=== PATIENT | male | born 1975 | race Caucasian/White ===

== ENCOUNTER → 2020-04-23 14:45 | Outpatient (BNVA) | payer BC, SELFPAY | PROVIDERS: PCP Pediatrics; Visit Provider Nurse Practitioner Family | DX: I48.0 Paroxysmal atrial fibrillation (principal); K92.1 Melena; F17.200 Nicotine dependence, unspecified, uncomplicated; Z79.01 Long term (current) use of anticoagulants; Z71.6 Tobacco abuse counseling | CPT/HCPCS: 93005 ==

== ENCOUNTER 2020-04-24 15:07 | Outpatient (REF) | payer BC, SELFPAY ==
[2020-04-24 15:51] LABS: Hematocrit 43.8 % (42-52); Hemoglobin 16.1 g/dl (14.0-18.0); Mean Corpuscular HGB Conc 36.8 g/dl (31.0-36.0); Mean Corpuscular Hemoglobin 33.5 pg (27.0-33.0); Mean Corpuscular Volume 91.3 fL (80-98); Mean Platelet Volume 9.7 fL (9.4-12.4); Platelet Count 339 X10*3/uL (160-400); Red Cell Distribution Width 11.6 % (11.0-16.0); White Blood Count 8.3 X10*3/uL (4.8-10.8)
[2020-04-24 16:29] LABS: Anion Gap 13 (12-20); Blood Urea Nitrogen 11 mg/dL (9-16); Calcium 9.9 mg/dL (8.4-10.2); Carbon Dioxide 29 mmol/L (22-29); Chloride 101 mmol/L (96-108); Estimated Glomerular Filt Rate > 60; Glucose Random 122 mg/dL (60-115); Magnesium 1.9 mg/dL (1.6-2.6); Potassium 4.5 mmol/L (3.3-5.1); Sodium 138 mmol/L (135-145)
== END 2020-04-24 15:08 | disposition home or self-care (01) ==
LOC: HO.LAB 15:07
PROVIDERS: PCP Pediatrics; Visit Provider Nurse Practitioner Family
DX: I10 Essential (primary) hypertension (principal)
CPT/HCPCS: 36415; 80048; 83735; 85027

== ENCOUNTER 2020-05-16 12:49 | Outpatient (REF) | payer BC, SELFPAY ==
[2020-05-16 14:12] LABS: MANUAL DIFF FLAG NO
[2020-05-16 14:27] LABS: Basophils Absolute Auto 0.1 X10*3/uL (0.0-0.2); Basophils Percent Auto 0.7 % (0-2); Eosinophils Absolute Auto 0.1 X10*3/uL (0.0-0.4); Eosinophils Percent Auto 0.5 % (0-4); Hematocrit 44.5 % (42-52); Hemoglobin 16.1 g/dl (14.0-18.0); Imm Gran Abs Auto 0.03 X10*3/uL (0.00-0.03); Imm Gran Pct Auto 0.3 % (0.0-0.4); Lymphocytes Absolute Auto 2.3 X10*3/uL (1.2-4.9); Lymphocytes Percent Auto 23.2 % (20-40); Mean Corpuscular HGB Conc 36.2 g/dl (31.0-36.0); Mean Corpuscular Hemoglobin 32.4 pg (27.0-33.0); Mean Corpuscular Volume 89.5 fL (80-98); Mean Platelet Volume 9.5 fL (9.4-12.4); Monocytes Absolute Auto 0.8 X10*3/uL (0.1-1.2); Monocytes Percent Auto 8.3 % (2-11); Neutrophils Absolute Auto 6.7 X10*3/uL (2.0-8.3); Platelet Count 448 X10*3/uL (160-400); Red Blood Count 4.97 X10*6/uL (4.60-5.80); Red Cell Distribution Width 11.6 % (11.0-16.0)
[2020-05-16 18:18] LABS: Alanine Aminotransferase 162 U/L (0-40); Albumin Level 4.7 g/dL (3.5-5.0); Alkaline Phosphatase 102 U/L (39-117); Aspartate Amino Transferase 177 U/L (5-37); Bilirubin Direct 0.5 mg/dL (0.0-0.5); Bilirubin Total 1.1 mg/dL (0.0-1.0); Blood Urea Nitrogen 8 mg/dL (9-16); C Reactive Protein 1.36 mg/dL (< or = 0.50); Estimated Glomerular Filt Rate > 60; Total Protein 7.6 g/dL (6.5-8.0)
[2020-05-16 18:23] LABS: Ferritin 1229 ng/mL (20-250)
[2020-05-20 22:37] LABS: Transglutaminase IgA 1 U/mL
== END 2020-05-16 12:50 | disposition home or self-care (01) ==
LOC: HO.LAB 12:49
PROVIDERS: PCP Pediatrics; Visit Provider Nurse Practitioner
DX: R10.32 Left lower quadrant pain (principal); Z79.01 Long term (current) use of anticoagulants; K92.1 Melena; R19.7 Diarrhea, unspecified; R11.10 Vomiting, unspecified; I48.0 Paroxysmal atrial fibrillation; F10.10 Alcohol abuse, uncomplicated; F19.90 Other psychoactive substance use, unspecified, uncomplicated; R49.0 Dysphonia; J02.9 Acute pharyngitis, unspecified
CPT/HCPCS: 36415; 80076; 82565; 82728; 83516; 84520; 85025; 86140

== ENCOUNTER 2020-05-24 11:05 | Outpatient (REF) | payer BC, SELFPAY ==
[2020-05-24 14:39] LABS: Blood Urea Nitrogen 9 mg/dL (9-16); Estimated Glomerular Filt Rate > 60
== END 2020-05-24 11:06 | disposition home or self-care (01) ==
LOC: HO.10HDL 11:05
PROVIDERS: Visit Provider Otolaryngology
DX: C76.0 Malignant neoplasm of head, face and neck (principal)
CPT/HCPCS: 36415; 82565; 84520

== ENCOUNTER 2020-06-05 07:38 | Outpatient (REF) | payer BC, SELFPAY ==
--- NOTE | ~2020-06-05 | CT_ITS ---
EXAMINATION: CT SOFT TISSUE NECK WITH CONTRAST CLINICAL INFORMATION: Dystonia. Hoarseness. COMPARISON: No relevant prior imaging. TECHNIQUE: Following the intravenous administration of 100 mL of Omnipaque 350 intravenous contrast, helical imaging was performed in the axial plane with generation of coronal and sagittal reformatted images. This CT examination was performed using dose optimization techniques as appropriate, variously including the following: *Automated exposure control *Adjustment of mA and/or kV according to patient size (this includes techniques or standardized protocols for targeted exams where dose is matched to indication/reason for exam; i.e. extremities or head) *Use of iterative reconstruction technique DLP: 420 mGy-cm FINDINGS: There is a large lobulated right sided laryngeal mass that bulges into the supraglottic airway. Mucosal disease extends along the right aryepiglottic fold with partial involvement of the epiglottis. At the inferior aspect of the mass there is apparent transglottic involvement with eccentric mucosal thickening and enhancement that extends along the right lateral aspect of the subglottic airway below the folds. Soft tissue disease infiltrates the thyroid cartilage and extends beyond the thyrohyoid membrane consistent with extralaryngeal extension of the primary tumor. The the upper pole of the right lobe the thyroid gland is laterally displaced however there is no clear evidence to suggest direct invasion of the thyroid gland on coronal imaging. There are multiple pathologically enlarged heterogeneously enhancing right level II cervical lymph nodes, the largest of which measures 2.5 cm in maximal transaxial dimension best depicted on axial image 41 of 98 series 2. No mediastinal or axillary adenopathy is visualized within the [id number] of this examination. Nasopharyngeal mucosal spaces are symmetric. Parapharyngeal and retromaxillary fat is preserved. Gaming Cage Cashier spaces are normal. The parotid and submandibular glands are normal. Lung apices are clear. The aortic arch apex is normal. Cervical carotid and vertebral arteries are patent. Internal jugular veins fill symmetrically. There is no acute osseous finding. No worrisome lytic or blastic osseous lesion. Skull base is intact. No mastoid or middle ear effusion. Limited visualization of the intracranial anatomy reveals no abnormal finding. 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
[2020-06-05] MEDS: iohexoL 350 MG/ML 100 ML INFUS..BTL IV (08:43)
== END 2020-06-05 07:39 | disposition home or self-care (01) ==
LOC: HO.CT 07:38
PROVIDERS: Visit Provider Otolaryngology
DX: R49.0 Dysphonia (principal)
CPT/HCPCS: 70491; Q9967

== ENCOUNTER 2020-06-07 11:35 | Outpatient (REF) | payer BC, SELFPAY ==
[2020-06-07 13:01] LABS: TSH reflex Free T4 1.69 uIU/mL (0.32-4.0)
[2020-06-08 14:21] LABS: Transglutaminase Ab IgG 3 U/mL; Transglutaminase IgA 1 U/mL
[2020-06-08 23:52] LABS: Gliadin Deamidated IgA Ab 6 Units; Gliadin Deamidated IgG Ab 2 Units
== END 2020-06-07 11:36 | disposition home or self-care (01) ==
LOC: HO.LAB 11:35
PROVIDERS: PCP Pediatrics; Visit Provider Nurse Practitioner
DX: R10.32 Left lower quadrant pain (principal); K92.1 Melena; R19.7 Diarrhea, unspecified; Z79.01 Long term (current) use of anticoagulants
CPT/HCPCS: 36415; 81256; 83516; 84443

== ENCOUNTER 2020-06-12 07:40 | Outpatient (REF) | payer BC, SELFPAY ==
[2020-06-12 08:29] LABS: Anion Gap 17 (12-20); Blood Urea Nitrogen 9 mg/dL (9-16); Calcium 10.2 mg/dL (8.4-10.2); Carbon Dioxide 26 mmol/L (22-29); Chloride 98 mmol/L (96-108); Estimated Glomerular Filt Rate > 60; Glucose Random 126 mg/dL (60-115); Potassium 4.8 mmol/L (3.3-5.1); Sodium 136 mmol/L (135-145)
== END 2020-06-12 07:41 | disposition home or self-care (01) ==
LOC: HO.LAB 07:40
PROVIDERS: PCP Pediatrics; Visit Provider Pediatrics
DX: Z01.818 Encounter for other preprocedural examination (principal)
CPT/HCPCS: 36415; 80048

== ENCOUNTER 2020-07-02 14:04 | Emergency (ER) | payer BC, SELFPAY ==
--- NOTE | 2020-07-02 14:54 | ED.GENADULT ---
HPI - General Adult General Chief complaint: General Medical Stated complaint: TRAK FELL OUT Time Seen by Provider: 07/02/20 14:54 Source: patient Mode of arrival: ambulatory Limitations: no limitations History of Present Illness HPI narrative: Patient with trachestomy for cancer. Today his tracheostomy fell out 30 minutes ago. Onset (ago): minute(s) Severity: mild Related Data Home Medications Medication Instructions Recorded Confirmed flecainide 100 mg tablet 100 mg PO BID 04/23/20 04/23/20 nicotine 7 mg/24 hr daily 1 patch TRANSDERMAL DAILY 04/23/20 04/23/20 transdermal patch penicillin V potassium 500 mg 500 mg PO BID 04/23/20 04/23/20 tablet rivaroxaban 20 mg tablet 20 mg PO DAILY 04/23/20 04/23/20 acetaminophen 500 mg tablet 1,000 mg PO Q6H PRN 05/16/20 dextroamphetamine-amphetamine 15 1 tab PO BID 05/16/20 mg tablet Previous Rx's Medication Instructions Recorded metoprolol succinate 25 mg 25 mg PO DAILY 90 Days #90 tab 05/10/20 tablet,extended release 24 hr hydrocortisone 2.5 % topical cream 1 appl DC BID PRN #30 g 05/16/20 with perineal applicator polyethylene glycol 3350 17 238 g PO ONCE 1 Days #238 g 05/16/20 gram/dose oral powder Allergies Allergy/AdvReac Type Severity Reaction Status Date / Time No Known Allergies Allergy Verified 05/16/20 13:07 [No Known Allergies*] Review of Systems Constitutional: Constitutional: Reports no additional constitutional complaints Eyes: Eyes: Reports no additional eye complaints ENT: Denies dizziness Cardiovascular: Cardiovascular: Reports no additional cardiovascular complaints Respiratory: Respiratory: Reports as per HPI Gastrointestinal: Gastrointestinal: Reports no additional gastrointestinal complaints Musculoskeletal: Musculoskeletal: Reports no additional musculoskeletal complaints Integumentary/Breasts: Skin/Breast: Denies rash Neurologic: Reports system reviewed and no additional complaints, except as documented, Denies dizziness and Denies Sensory deficit (Neuro) Psychiatric: Psychiatric: Denies anxiety [facility] Past Medical History Medical History Chronic anticoagulation PAF (paroxysmal atrial fibrillation) Family History Family History Father HTN (hypertension) Arthritis of knee Mother Arthritis of knee Social History Social History Alcohol intake: unknown Smoking Status: Never smoker Tobacco Type: Cigarette Cigarettes Per Day: 10 Smoked in Last 30 Days: No Use of substances other than those prescribed or required for medical reasons: No Physical Exam Vital Signs: Vital Signs: Last Vital Signs Temp 97.3 F 07/02/20 15:15 Pulse 100 07/02/20 15:15 Resp 18 07/02/20 15:15 BP 125/82 07/02/20 15:15 Pulse Ox 99 07/02/20 15:15 Body Mass Index 26.5 Const: General: healthy appearing Nutritional Appearance: average body habitus Orientation/consciousness: oriented to person and patient oriented x3 Limitations: no limitations HENMT: Head: Yes normal to inspection Ears: external ears normal General nose exam: Normal external nose present Mouth: Normal oral and palatal mucosa present and oropharynx normal Throat: Yes posterior oropharynx normal Eyes: General: appearance normal, both eyes and all related structures Neck: Other: supple, tracheostomy fistula patent Neck: Yes normal visual inspection Chest: Chest palpation & inspection: normal inspection of the chest Resp: Auscultation: clear to auscultation bilaterally Cardio: Jugular venous distension: no JVD Rate: regular rate Rhythm: regular rhythm Heart sounds: S1 normal heart sound present and S2 normal heart sound present GI: Inspection: Yes normal to inspection Palpation (GI): Soft to palpation, nontender and No hepatosplenomegaly present Auscultation: normal bowel sounds : General: Yes no CVA tenderness Back/Spine/Pelvis: Back: no CVA tenderness Skin: General skin exam: no rashes or lesions noted Neuro: General: oriented to person and patient oriented x3 Cranial nerves: Yes CN's II-XII intact bilaterally Motor exam (neuro): 5/5 motor strength present throughout Sensory Exam: No Sensory deficit (Neuro) Extrem: General: Yes normal to inspection Psych: Appearance: grossly normal Procedures Procedure Narrative Procedure Narrative: 6 fR tracheostomy replaced Discharge Plan Discharge Clinical Impression: Tracheostomy care Patient Disposition: Home, Self-Care Instructions: Tracheostomy Care (ED) Prescriptions: No Action metoprolol succinate 25 mg tablet extended release 24 hr 25 mg PO DAILY 90 Days Qty: 90 RF: 1 flecainide 100 mg tablet 100 mg PO BID RF: 0 Xarelto 20 mg tablet 20 mg PO DAILY RF: 0 nicotine 7 mg/24 hr patch 24 hour 1 patch transdermal DAILY RF: 0 penicillin V potassium 500 mg tablet 500 mg PO BID RF: 0 hydrocortisone [Proctosol HC] 2.5 % cream with perineal applicator 1 appl DC BID PRN (Reason: hemorrhoids) Qty: 30 RF: 3 polyethylene glycol 3350 [Miralax] 17 gram/dose powder 238 g PO ONCE 1 Days Qty: 238 RF: 0 Referrals: Annetta Arreaga MD [Primary Care Provider] - 1 week
[2020-07-02 15:15] VITALS: BP 125/82; PULSE 100; RESP 18; TEMP 36.3; O2SAT 99; BMI 26.5
== END 2020-07-02 15:31 | disposition home or self-care (01) ==
LOC: HO.ED 15:30
PROVIDERS: Emergency Provider Emergency Medicine; PCP Pediatrics
DX: Z43.0 Encounter for attention to tracheostomy (principal); I48.0 Paroxysmal atrial fibrillation; Z79.01 Long term (current) use of anticoagulants
CPT/HCPCS: 99284

== ENCOUNTER → 2020-07-10 13:29 | Outpatient (BNVA) | payer BC, SELFPAY | PROVIDERS: PCP Pediatrics; Referring Provider Pediatrics; Visit Provider Internal Medicine Cardiovascular Disease | DX: Z01.810 Encounter for preprocedural cardiovascular examination (principal); I48.92 Unspecified atrial flutter | CPT/HCPCS: 93005 ==

== ENCOUNTER → 2020-08-08 09:20 | Outpatient (REF) | payer BC, SELFPAY ==
--- NOTE | 2020-08-08 12:05 | ECG_ITS ---
Hook-up date: 2020-08-08 09:27:00 Duration: 25:42:00 Test Indications: PAF Medications: 638580 QRS complexes 2205 Ventricular ectopics which represent 2 % of total QRS comp. 393 Supraventricular ectopics which represent <1 % of total QRS comp. * Paced QRS complexs which represent % of total QRS comp. VENTRICULAR ECTOPY 2189 Isolated 1531 Bigeminal Cycles 8 Couplets 0 Runs 0 Beats in Runs * Beats LONGEST at * BPM at :: -- * Beats FASTEST at * BPM at :: -- SUPRAVENTRICULAR ECTOPY 369 Isolated 9 Couplets 2 Runs 6 Beats in Runs 3 Beats LONGEST at 127 BPM at 01:51:10 2020-08-09 3 Beats FASTEST at 137 BPM at 04:10:33 2020-08-09 HEART RATES 36 MIN at 13:34:36 2020-08-08 75 AVG 138 MAX at 07:47:28 2020-08-09 LONGEST RR 1.7520 secs at 13:43:28 2020-08-08 S-T LEVELS Channel 1 - 128 mm at 09:27:00 2020-08-08 - 128 mm at 09:27:00 2020-08-08 Channel 2 - 128 mm at 09:27:00 2020-08-08 - 128 mm at 09:27:00 2020-08-08 Channel 3 - 128 mm at 02:84:61 -- - 128 mm at 02:84:61 Basic rhythm Normal sinus rhythm No significant pauses. Intermittent Atrial fibrillation , 4% of total time Frequent Premature ventricular complexes , 2% of total beats Occasional Premature atrial complexes No diary submitted Referred By: Filemon Salazar Overread By: FILEMON SALAZAR MD
== END ==
LOC: HO.CARD 09:20
PROVIDERS: PCP Pediatrics; Referring Provider Pediatrics; Visit Provider Internal Medicine Cardiovascular Disease
DX: I48.0 Paroxysmal atrial fibrillation (principal)
CPT/HCPCS: 93226

== ENCOUNTER → 2020-10-22 14:48 | Outpatient (BNVA) | payer BC, SELFPAY | PROVIDERS: PCP Pediatrics; Referring Provider Pediatrics; Visit Provider Internal Medicine Cardiovascular Disease | DX: I48.0 Paroxysmal atrial fibrillation (principal) | CPT/HCPCS: 93005 ==

== ENCOUNTER → 2021-01-21 12:46 | Outpatient (BNVA) | payer BC, SELFPAY | PROVIDERS: PCP Pediatrics; Referring Provider Pediatrics; Visit Provider Internal Medicine Cardiovascular Disease | DX: I48.0 Paroxysmal atrial fibrillation (principal) | CPT/HCPCS: 93005 ==

== ENCOUNTER → 2021-07-09 07:19 | Outpatient (REF) | payer BC, SELFPAY ==
--- NOTE | 2021-07-09 07:29 | CA_ITS ---
Transthoracic Echocardiogram Patient (Last, First, Middle): Slick Bingham J Gender: Male Date of : 1975 Age: 46 Procedure Date: 07/09/2021 Procedure Type: Transthoracic Echocardiogram Location: OP Height: 177.8 cm Weight: 111.13 kg BSA: 2.28 m2 Heart Rate: bpm BP: 121 / 82 mmHg Blindstitch Lining Feller: BRIAN Referring MD: Filemon Salazar MD Loading Dock Helper: Filemon Salazar MD Symptoms: I48.0 - Paroxysmal atrial fibrillation Study Quality: Fair ECG Rhythm: Atrial Fibrillation with RVR Conclusions: - 1. Normal LV systolic function 2. Normal cardiac valvular Doppler 3. No gross pericardial effusion Findings Left Ventricle Normal left ventricular size and systolic function. There is mildly increased left ventricular wall thickness. The visually estimated ejection fraction is between 55-60%. Diastolic function is indeterminate on the basis of available data. Right Ventricle Normal right ventricular cavity size. There is normal right ventricular systolic function. Atria The left atrium is normal in size. Interatrial shunt cannot be excluded. The right atrium is normal in size. Aortic Valve Normal aortic valve structure and function. There is no aortic valve stenosis. There is no aortic valve regurgitation. Mitral Valve Likely normal mitral valve structure and function. There is trace mitral valve regurgitation. There is no mitral valve stenosis. Pulmonic Valve The pulmonic valve was not well visualized. Tricuspid Valve Likely normal tricuspid valve structure and function. There is trace tricuspid valve regurgitation. The right ventricular systolic pressure is normal. The right ventricular systolic pressure is 19 mmHg. Normal right atrial pressure. There is no evidence of pulmonary hypertension. Great Vessels All visible segments of the aorta are normal in size. The pulmonary artery was not well visualized. Venous The inferior vena cava is normal in size and collapses greater than 50% with inspiration. Pericardium/Pleural There is no evidence of pericardial effusion. Prior Study Comparison No significant change compared to prior study dated: 07/27/2019. Measurements 2D Linear Measurements IVSd: 1.26 0.6-0.9/0.6-1.0 cm LVIDd: 4.92 3.9-5.3/4.2-5.9 cm LVIDd Index: 2.16 2.4-3.2/2.2-3.1 cm/m2 LVIDs: 3.38 2.0-3.6 cm LVPWd: 1.23 0.7-1.1 cm LA Diam: 3.70 2.7-3.8/3.0-4.0 cm LAIDs Index: 1.62 1.5-2.3 cm/m2 LV Mass: 299.28 67-162/88-224 g LV Mass Index: 131.27 43-95/49-115 g/m2 LVOT Diam: 2.10 3.0+(-)1.3 cm 2D Systolic Function EF 4C: 55.60 >55% EF 2C: 54.80 >55% EF BiP: 55.40 >55% Aortic Valve AoV Pk Franky: 1.11 AoV Mn Franky: 0.80 AoV VTI: 0.18 AoV Pk Grad: 5.00 Aov Mn Grad: 3.00 SHELTON Cont.VTI: 2.65 LVOT LVOT Pk Franky: 0.80 LVOT Mn Franky: 0.58 LVOT VTI: 0.14 LVOT Pk Grad: 3.00 LVOT Mn Grad: 2.00 LVOT Diam: 2.10 LVOT Area: 3.46 Tricuspid Valve TR Pk Franky: 2.00 TR Pk Grad: 16.00 RA Press: 3.00 RVSP: 19.00 Great Vessels Aorta Ao Asc: 3.50 2.1-3.4 cm Updated in Other Vendor System with Status of Final Filemon Salazar MD electronically signed on 07/10/2021 12:41:48 PM with status of Final
--- NOTE | 2021-07-09 08:15 | HM_ITS ---
Conclusion: 1. Patient was monitored for total period of 3 days 2. Baseline was normal sinus rhythm with average heart of 88 beats per minute 3. Intermittent episodes of atrial fibrillation noted with longest episode of 12 hours and 51 minutes, total burden 28.48%. During atrial flutter/fibrillation noted to have elevated heart rate 4. Total of 527 PACs accounting is 0.14% accounting for occasional PACs 5. No significant pauses or bradycardia noted 6. Patient reported event correlated with atrial fibrillation at 145 beats per minute, no symptoms reported MTDD
== END ==
LOC: HO.CARD 07:19
PROVIDERS: Visit Provider Internal Medicine Cardiovascular Disease
DX: I48.0 Paroxysmal atrial fibrillation (principal)
CPT/HCPCS: 93242; 93306

== ENCOUNTER → 2021-07-22 12:15 | Outpatient (BNVA) | payer BC, SELFPAY | PROVIDERS: PCP Pediatrics; Referring Provider Pediatrics; Visit Provider Internal Medicine Cardiovascular Disease | DX: I48.0 Paroxysmal atrial fibrillation (principal) | CPT/HCPCS: 93005 ==

== ENCOUNTER → 2022-02-06 08:54 | Day surgery (SDC) | payer BC, SELFPAY ==
[2022-02-06 09:16] VITALS: BMI 35.9
--- NOTE | 2022-02-06 09:23 | P.HPSUR_ITS ---
Pre-Procedural Eval Section A Date of Service: 02/06/22 Section B Chief Complaint: epigastric pain,Dysphonia Details of Present Illness: rectal bleeding Relevant Family History (Specify if Yes): No Relevant Social History: Other (specify) Present Medications: see Short Stay Collaborative assessment Medical History: Significant History (Atrial flutter Chronic anticoagulation PAF (paroxysmal atrial fibrillation)) History of Previous Operations: Relevant previous surgery/procedure and date(s) (laryngectomy) Allergies: Allergies Allergy/AdvReac Type Severity Reaction Status Date / Time No Known Allergies Allergy Verified 02/06/22 09:15 [No Known Allergies*] Review of Systems Sugical H&P ROS: Negative: Constitution, Cardiovascular, Respiratory, Neurological, Psychiatric, Hem-Onc, Allergic/Immunologic, Gastrointestinal, Gen itourinary, Musculoskeletal, Integumentary, Endocrine and Eyes/Ears/Nose/Throat Exam Surgical H&P Exam: Normal: HEENT, Normal: Heart, Normal: Lungs, Normal: Extremities, Normal: Abdomen, Normal: Skin and Normal: Neurological Plan Diagnosis/Plan: Unchanged I have reviewed the history and physical and performed a pertinent physical examination on my patient. No changes have occurred unless specified. Time Spent With Patient Time: Total time managing care of this patient today ____ minutes.
[2022-02-06 09:29] LABS: Amphetamine Screen Urine POSITIVE (Not Detect); Barbiturates, Urine Not Detected (Not Detect); Benzodiazepines Screen Urine Not Detected (Not Detect); Cannabinoid Screen Urine Not Detected (Not Detect); Cocaine Screen Urine Not Detected (Not Detect); Fentanyl, urine POSITIVE (Not Detect); Opiate Screen Urine Not Detected (Not Detect); Phencyclidine Screen Urine Not Detected (Not Detect)
[2022-02-06 09:34] VITALS: BP 144/103; PULSE 95; RESP 18; TEMP 36.7; O2SAT 99
--- NOTE | 2022-02-06 09:53 | PC.NURSE ---
urine tested positive for fentanyl. procedures cancelled per surgeon and anesthesia. monogram operator for anesthesia also to get more info about his trach.
== END ==
PROVIDERS: Anesthesiology; PCP Pediatrics; Visit Provider Internal Medicine Gastroenterology
DX: R10.13 Epigastric pain (principal); Z53.8 Procedure and treatment not carried out for other reasons; R82.5 Elevated urine levels of drugs, medicaments and biological substances; R49.0 Dysphonia; K92.1 Melena; F10.10 Alcohol abuse, uncomplicated; Z85.21 Personal history of malignant neoplasm of larynx; Z90.02 Acquired absence of larynx; I48.0 Paroxysmal atrial fibrillation; Z79.01 Long term (current) use of anticoagulants
CPT/HCPCS: 80307

== ENCOUNTER 2022-05-20 11:48 | Outpatient (REF) | payer BC, SELFPAY ==
[2022-05-20 13:51] LABS: Amphetamine Screen Urine Not Detected (Not Detect); Barbiturates, Urine Not Detected (Not Detect); Benzodiazepines Screen Urine Not Detected (Not Detect); Cannabinoid Screen Urine Not Detected (Not Detect); Cocaine Screen Urine Not Detected (Not Detect); Fentanyl, urine Not Detected (Not Detect); Opiate Screen Urine Not Detected (Not Detect); Phencyclidine Screen Urine Not Detected (Not Detect)
== END 2022-05-20 11:49 | disposition home or self-care (01) ==
LOC: HO.LAB 11:48
PROVIDERS: PCP Pediatrics; Visit Provider Nurse Practitioner
DX: Z01.818 Encounter for other preprocedural examination (principal); R10.13 Epigastric pain; K92.1 Melena; F10.11 Alcohol abuse, in remission; F19.11 Other psychoactive substance abuse, in remission; Z90.2 Acquired absence of lung [part of]; Z79.899 Other long term (current) drug therapy
CPT/HCPCS: 80307

== ENCOUNTER → 2022-06-26 10:19 | Day surgery (SDC) | payer BC, SELFPAY ==
[2022-06-24 15:34] VITALS: BMI 35.6
--- NOTE | 2022-06-25 12:03 | HO.ANESPROP2 ---
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 afib, no anticoag, [place] [facility] [place] Regular ETOH use Hx +Utox Case reviewed with Dr Kristin QUEZADA Active Problems Active Problems: All Active Problems (Updated 06/24/22 @ 15:36 by Kaylah Marie RN) Blood in stool (Acute) ETOH abuse (Acute) Drug use (Acute) LLQ pain (Acute) Diarrhea (Acute) Vomiting (Acute) Voice hoarseness (Acute) Sore throat (Acute) Preoperative cardiovascular examination (Acute) Dyspepsia (Acute) Pre-op examination (Acute) History of drug abuse (Acute) History of alcohol abuse (Acute) History of throat cancer (Acute) H/O laryngectomy (Acute) PAF (paroxysmal atrial fibrillation) (Acute) Past Medical History Medical History (Updated 06/24/22 @ 15:36 by Kaylah Marie RN) Anxiety Atrial flutter Chronic anticoagulation Depression Dyslipidemia Essential hypertension Gout History of alcohol abuse History of drug abuse History of throat cancer On beta ana at home PAF (paroxysmal atrial fibrillation) Family History Family History Father HTN (hypertension) Arthritis of knee Mother Arthritis of knee Surgical History Surgical History (Updated 05/20/22 @ 15:50 by SHERITA Fields) H/O laryngectomy History of tonsillectomy Hx of arthroscopic knee surgery Social History Social History Alcohol intake: unknown Patient Tobacco Use Status: Former Tobacco user Quit Date: 2 yrs ago Cigarettes Per Day: 10 Meds Allergies Allergy/AdvReac Type Severity Reaction Status Date / Time No Known Allergies Allergy Verified 05/20/22 12:03 [No Known Allergies*] Home Medications Medication Instructions Recorded Confirmed Last Taken Type fluoxetine 20 mg capsule 20 mg PO DAILY 07/10/20 06/24/22 Unknown History allopurinol 100 mg tablet 100 mg PO DAILY 10/22/20 06/24/22 Unknown History amlodipine 2.5 mg tablet 2.5 mg PO DAILY 08/06/21 06/24/22 02/06/22 05:00 History dextroamphetamine-amphetamine 15 1 tab PO BID 10/08/21 06/24/22 02/06/22 05:00 History mg tablet risperidone 2 mg tablet 2 mg PO QPM 10/08/21 06/24/22 Unknown History levothyroxine 50 mcg tablet 50 mcg PO QAM 05/20/22 06/24/22 Unknown History Exam Exam Date and Time: June 25, 2022 1203 Height,Weight and Vital Signs: Height 5 ft 10 in Weight 112.491 kg Narrative Narrative: EKG 07/2021 normal sinus rhythm with normal EKG Assessment and Plan Assessment Anesthesia Assessment: Chart Reviewed
[2022-06-26 11:15] VITALS: PULSE 88; RESP 18; TEMP 36.5
[2022-06-26 11:27] LABS: Amphetamine Screen Urine POSITIVE (Not Detect); Barbiturates, Urine Not Detected (Not Detect); Benzodiazepines Screen Urine Not Detected (Not Detect); Cannabinoid Screen Urine Not Detected (Not Detect); Cocaine Screen Urine Not Detected (Not Detect); Fentanyl, urine Not Detected (Not Detect); Opiate Screen Urine Not Detected (Not Detect); Phencyclidine Screen Urine Not Detected (Not Detect)
[2022-06-26] MEDS: Lactated Ringers 1,000 ML 100 ML IVCONT (11:36)
--- NOTE | 2022-06-26 11:37 | MHC.SHP ---
Pre-Procedural Eval Section A Date of Service: 06/26/22 Section B Chief Complaint: Epigastric pain,Personal history of malignant Relevant Social History: Alcohol Use Present Medications: see Short Stay Collaborative assessment Medical History: Significant History (Anxiety Atrial flutter Chronic anticoagulation Depression Dyslipidemia Essential hypertension Gout History of alcohol abuse History of drug abuse History of throat cancer On beta ana at home PAF (paroxysmal atrial fibrillation)) History of Previous Operations: Relevant previous surgery/procedure and date(s) (H/O laryngectomy History of tonsillectomy Hx of arthroscopic knee surgery) Allergies: Allergies Allergy/AdvReac Type Severity Reaction Status Date / Time No Known Allergies Allergy Verified 05/20/22 12:03 [No Known Allergies*] Review of Systems Sugical H&P ROS: Negative: Constitution, Cardiovascular, Respiratory, Neurological, Psychiatric, Hem-Onc, Allergic/Immunologic, Gastrointestinal, Genitourinary, Musculoskeletal, Integumentary, Endocrine and Eyes/Ears/Nose/Throat Exam Surgical H&P Exam: Normal: Heart, Normal: Lungs, Normal: Extremities, Normal: Abdomen, Normal: Skin and Normal: Neurological and Significant Findings: HEENT (tracheostomy noted ) Plan Diagnosis/Plan: Unchanged I have reviewed the history and physical and performed a pertinent physical examination on my patient. No changes have occurred unless specified. Time Spent With Patient Time: Total time managing care of this patient today ____ minutes.
--- NOTE | 2022-06-26 12:27 | P.CONAN_ITS ---
[facility] Active Problems Active Problems: All Active Problems (Updated 06/24/22 @ 15:36 by Kaylah Marie RN) Blood in stool (Acute) ETOH abuse (Acute) Drug use (Acute) LLQ pain (Acute) Diarrhea (Acute) Vomiting (Acute) Voice hoarseness (Acute) Sore throat (Acute) Preoperative cardiovascular examination (Acute) Dyspepsia (Acute) Pre-op examination (Acute) History of drug abuse (Acute) History of alcohol abuse (Acute) History of throat cancer (Acute) H/O laryngectomy (Acute) PAF (paroxysmal atrial fibrillation) (Acute) Past Medical History Medical History Anxiety Atrial flutter Chronic anticoagulation Depression Dyslipidemia Essential hypertension Gout History of alcohol abuse History of drug abuse History of throat cancer On beta ana at home PAF (paroxysmal atrial fibrillation) Family History Family History Father HTN (hypertension) Arthritis of knee Mother Arthritis of knee Family history of problems with anesthesia: No Surgical History Surgical History H/O laryngectomy History of tonsillectomy Hx of arthroscopic knee surgery History of Problems with Anesthesia: No Social History Social History Alcohol intake: unknown Patient Tobacco Use Status: Former Tobacco user Quit Date: 2 yrs ago Cigarettes Per Day: 10 Use of substances other than those prescribed or required for medical reasons: No Are you DNR?: No Advance Directives: No Advance Directives Information Provided: Yes Meds Allergies Allergy/AdvReac Type Severity Reaction Status Date / Time No Known Allergies Allergy Verified 05/20/22 12:03 [No Known Allergies*] Active Medications: Current Medications Lactated Ringer's (Lr) 1,000 mls @ 100 mls/hr IVCONT .Q10H ESTER Last Admin: 06/26/22 11:36 Dose: 100 mls/hr Ondansetron HCl (Ondansetron Hcl 4 Mg/2 Ml Vial) 4 mg IVPUSH ONCE PRN PRN Reason: Nausea and Vomiting Home Medications Medication Instructions Recorded Confirmed Last Taken Type fluoxetine 20 mg capsule 20 mg PO DAILY 07/10/20 06/24/22 Unknown History allopurinol 100 mg tablet 100 mg PO DAILY 10/22/20 06/26/22 06/26/22 History amlodipine 2.5 mg tablet 2.5 mg PO DAILY 08/06/21 06/24/22 02/06/22 05:00 History dextroamphetamine-amphetamine 15 1 tab PO BID 10/08/21 06/24/22 02/06/22 05:00 History mg tablet risperidone 2 mg tablet 2 mg PO QPM 10/08/21 06/24/22 Unknown History levothyroxine 50 mcg tablet 50 mcg PO QAM 05/20/22 06/24/22 Unknown History Exam Exam Date and Time: June 26, 2022 1227 Height,Weight and Vital Signs: Height 5 ft 10 in Weight 112.491 kg Last Vital Signs Temp 97.7 F 06/26/22 11:15 Pulse 88 06/26/22 11:15 Resp 18 06/26/22 11:15 O2 Del Method Room Air 06/26/22 11:15 Pertinent Lab Results Pertinent Lab Results: Laboratory Tests 06/26/22 10:58 Urine Opiates Screen Not Detected Urine Fentanyl Screen Not Detected Ur Barbiturates Screen Not Detected Ur Phencyclidine Scrn Not Detected Ur Amphetamines Screen POSITIVE H U Benzodiazepines Scrn Not Detected Urine Cocaine Screen Not Detected U Marijuana (THC) Screen Not Detected Airway Mallampati Class: IV TM Dist: >3cm Neck ROM: Full (patient s/p laryngectomy with stoma) Heart: rrr Lungs: clear Assessment and Plan Final Anesthetic Review Family History of Problems with Anesthesia: No History of Problems with Anesthesia: No ASA Class: III Final Preanesthetic Review: No Changes in Pt Med Stat, Meds/Allgs Chart Reviewed, Consent Obtained/Reviewed and Anes Risks/Benef Reviewed Patient Risk: Intermediate Procedure Risk: Low Anesthetic Plan Anesthetic Plan: MAC: Disposition: Standard PACU
--- NOTE | 2022-06-26 12:34 | P.OP_ITS ---
Operative Note Operative Note Date of Service: 06/26/22 Narrative: Operative Information Procedure Description: EGD, Colonoscopy Indication: rectal bleeding Anesthesia: MAC FLEXIBLE TRANSORAL UPPER GASTROINTESTINAL ENDOSCOPY AND COLONOSCOPY PROCEDURE NOTE UPPER ENDOSCOPY Consent: Indications for the procedure and potential complications of bleeding, perforation, reaction to medications and missed diagnosis were discussed with the patient and informed consent was obtained. Instrument: Olympus GIF H 190 J mid size upper endoscope Monitoring: Vital signs and clinical assessment, continuous EKG monitoring, Pulse oximetry, Carbon Dioxide monitoring and blood pressure monitoring were done throughout the procedure. Procedure: The patient was placed in the left lateral decubitis position and pre-procedure medications were administered and a bite block was placed. The endoscope was inserted into the mouth and advanced under direct vision to the third part of duodenum. A careful inspection was made as the upper endoscope was withdrawn including a retroflexed examination of the proximal stomach; Findings and interventions are described below. Findings: Larynx:normal Esophagus: GE junction at 40 cm, diaphragm hiatus at 40 cm, lax LES Stomach: Patchy erythema . Biopsies were obtained. Grade 2 flap valve on retroflexed examination of the cardia. Duodenum: bulbar duodenitis, bx taken Intervention: Biopsies as noted above COLONOSCOPY Instrument: Olympus variable stiffness pediatric scope 190L Colonoscopy Monitoring: Vital signs and clinical assessment, continuous EKG monitoring, Pulse oximetry, Carbon Dioxide monitoring and blood pressure monitoring were done throughout the procedure. Colon withdrawal time was 1 hr 35 minutes. Procedure: The patient was placed in the left lateral decubitis position and pre-procedure medications were administered. After a digital rectal examination of the ano-rectum, the video colonoscope was inserted into the rectum and advanced through the colon to the cecum/TI. The colonoscope was slowly withdrawn in a retrograde panoramic fashion and the colon mucosa was carefully examined including a retroflexed view of the rectum. Findings and interventions are described below. Procedure Difficulty: easy Findings: Terminal Ileum-normal Cecum:normal Ascending Colon: normal Transverse Colon -normal Descending Colon: x 2 large pedunculated lesions measuring 2.2-3 cm in size were noted at 60 cm and 70 cm from anal verge. These were both removed with hot snare after initially being injected with few cc of epinephrine. The polyp at 60 cm was bleeding and despite 7 clips, hemospray and coagulation continued to bleed. [place] ink was injected at the polyp base for future reference. Sigmoid Colon: normal Rectosigmoid: x1 pedunculated polyp 3 cm in length, injected with epinephrine then removed with hot snare, x 2 clips applied for hemostasis. This was 20 cm from anal verge. Rectum: Retroflexion with small internal hemorrhoids, grade I, at 18 cm from anal verge a 12 mm pedunculated polyp removed with cold snare and in distal last 10 cm of rectum a sessile polyp 8 mm removed with cold snare with x 2 clips applied for hemostasis. Anorectum - normal Colon preparation: [place] Bowel Preparation Scale Right colon; 2 Transverse colon: 2 Left colon; 2 (0 = Unprepared colon segment with mucosa not seen due to solid stool that cannot be cleared. 1 = Portion of mucosa of the colon segment seen, but other areas of the colon segment not well seen due to staining, residual stool and/or opaque liquid. 2 = Minor amount of residual staining, small fragments of stool and/or opaque liquid, but mucosa of colon segment seen well. 3 = Entire mucosa of colon segment seen well with no residual staining, small fragments of stool or opaque liquid) Impression and Post Procedure Diagnosis: Endoscopy Findings: gastritis duodenitis Colonoscopy Findings: polyps internal hemorrhoids Plan: Await Pathology results Will transfer to ED for further assessment after drawing labs for type and screen, CBC etc. I called [facility] for transfer for IR embolization but they are closed to transfers at this time. Above findings were reviewed with the patient and relevant handouts were provided if indicated.
[2022-06-26 14:45] VITALS: BP 135/100; PULSE 69; RESP 22; TEMP 36.3; O2SAT 99
[2022-06-26 15:00] VITALS: BP 132/95; PULSE 59; RESP 20; O2SAT 100
[2022-06-26 15:15] VITALS: BP 138/101; PULSE 54; RESP 20; O2SAT 100
[2022-06-26 15:17] LABS: Hematocrit 37.5 % (42.0-52.0); Hemoglobin 13.3 g/dl (14.0-18.0); Mean Corpuscular HGB Conc 35.5 g/dl (31.0-36.0); Mean Corpuscular Hemoglobin 35.7 pg (27.0-33.0); Mean Corpuscular Volume 100.5 fL (80.0-98.0); Mean Platelet Volume 9.4 fL (9.4-12.4); Platelet Count 132 X10*3/uL (160-400); Red Blood Count 3.73 X10*6/uL (4.60-5.80); Red Cell Distribution Width 13.2 % (11.0-16.0); White Blood Count 5.4 X10*3/uL (4.8-10.8)
[2022-06-26 15:22] LABS: INTERNATIONAL NORM RATIO 1.1 (0.9-1.1); Prothrombin Time 12.3 SEC (10.0-13.1)
[2022-06-26 15:30] VITALS: BP 146/99; PULSE 59; RESP 20; O2SAT 100
[2022-06-26 15:32] LABS: Alanine Aminotransferase 64 U/L (0-40); Albumin Level 4.2 g/dL (3.5-5.0); Alkaline Phosphatase 112 U/L (39-117); Anion Gap 18 (12-20); Aspartate Amino Transferase 103 U/L (5-37); Bilirubin Total 1.9 mg/dL (0.0-1.0); Blood Urea Nitrogen 9 mg/dL (9-16); Calcium 9.2 mg/dL (8.4-10.2); Carbon Dioxide 26 mmol/L (22-29); Chloride 99 mmol/L (96-108); Creatinine Clr Calc Pharmacy 110.5; Estimated Glomerular Filt Rate > 60; Glucose Random 115 mg/dL (60-115); Potassium 4.5 mmol/L (3.3-5.1); Sodium 138 mmol/L (135-145); Total Protein 6.5 g/dL (6.5-8.0)
[2022-06-26 16:00] VITALS: BP 139/100; PULSE 66; RESP 20; TEMP 37.4; O2SAT 100
== END ==
PROVIDERS: Nurse Practitioner; PCP Pediatrics; Visit Provider Internal Medicine Gastroenterology
PROC: (CPT 45385; principal; 2022-06-26 11:50)
DX: K62.5 Hemorrhage of anus and rectum (principal); K63.5 Polyp of colon; K64.0 First degree hemorrhoids; R10.13 Epigastric pain; K21.9 Gastro-esophageal reflux disease without esophagitis; K29.80 Duodenitis without bleeding; K22.4 Dyskinesia of esophagus; K44.9 Diaphragmatic hernia without obstruction or gangrene; I85.01 Esophageal varices with bleeding; D69.6 Thrombocytopenia, unspecified; F32.A Depression, unspecified; F10.11 Alcohol abuse, in remission; F19.11 Other psychoactive substance abuse, in remission; I10 Essential (primary) hypertension; M10.9 Gout, unspecified; I48.0 Paroxysmal atrial fibrillation; I48.92 Unspecified atrial flutter; F41.1 Generalized anxiety disorder; Z85.819 Personal history of malignant neoplasm of unspecified site of lip, oral cavity, and pharynx; E78.5 Hyperlipidemia, unspecified; Z90.02 Acquired absence of larynx; Z79.01 Long term (current) use of anticoagulants; Z79.899 Other long term (current) drug therapy; Z87.891 Personal history of nicotine dependence
CPT/HCPCS: 45385; 45381; 43239; 36415; 80053; 80307; 85027; 85610; 86850; 86900; 86901; 88305; 88342; J0171

== ENCOUNTER 2022-06-26 16:23 | Emergency (ER) | payer BC, SELFPAY ==
[2022-06-26] VITALS (8 sets, daily range): BP systolic 104–149; BP diastolic 69–104; PULSE 70–87; RESP 15–20; TEMP 36.7–37; O2SAT 96–100; BMI 35.9
--- NOTE | 2022-06-26 16:44 | ED_ITS ---
HPI - General Adult General Chief complaint: General Medical Stated complaint: post procedural bleeding Time Seen by Provider: 06/26/22 16:44 Source: patient and family Limitations: no limitations History of Present Illness HPI narrative: Patient 47 years old with history of paroxysmal atrial flutter chads vascular score of 0 not on any anti coag or aspirin, hypertension, dyslipidemia, gout with history of alcohol use drinks 2 drinks of whiskey a day no history of withdrawal, history of throat cancer status post tracheostomy had colonoscopy and endoscopy for epigastric pain and intermittent GI bleed. Endoscopy showed gastritis and duodenitis colonoscopy showed multiple large polyps which were removed 1 of the large polyp which was at 60 cm from anal verge is 2.2-3 cm in size continued to bleed despite 7 clips hemo spray and coagulation was oozing at the end of the procedure gastroenterology doctor assigned try to call [facility] for transfer for IR but unable because of bed capacity. Patient H and H postprocedure was 13.3/37.5 platelet count 132 baseline H&H is 15/42 at this time patient is feeling much better denies any discomfort no syncope Related Data Home Medications Medication Instructions Recorded Confirmed fluoxetine 20 mg capsule 20 mg PO DAILY 07/10/20 06/24/22 allopurinol 100 mg tablet 100 mg PO DAILY 10/22/20 06/26/22 amlodipine 2.5 mg tablet 2.5 mg PO DAILY 08/06/21 06/24/22 dextroamphetamine-amphetamine 15 1 tab PO BID 10/08/21 06/24/22 mg tablet risperidone 2 mg tablet 2 mg PO QPM 10/08/21 06/24/22 levothyroxine 50 mcg tablet 50 mcg PO QAM 05/20/22 06/24/22 Previous Rx's Medication Instructions Recorded metoprolol succinate 50 mg 50 mg PO DAILY #90 tabs 12/30/21 tablet,extended release 24 hr famotidine 40 mg tablet 40 mg PO BEDTIME #90 tabs 05/20/22 Allergies Allergy/AdvReac Type Severity Reaction Status Date / Time No Known Allergies Allergy Verified 05/20/22 12:03 [No Known Allergies*] Review of Systems Review of Systems: Yes all other systems are reviewed and are negative [facility] Past Medical History Medical History Anxiety Atrial flutter Chronic anticoagulation Depression Dyslipidemia Essential hypertension Gout History of alcohol abuse History of drug abuse History of throat cancer On beta ana at home PAF (paroxysmal atrial fibrillation) Surgical History H/O laryngectomy History of tonsillectomy Hx of arthroscopic knee surgery Family History Family History Father HTN (hypertension) Arthritis of knee Mother Arthritis of knee Social History Social History Alcohol intake: never Patient Tobacco Use Status: Former Tobacco user Quit Date: 2 yrs ago Cigarettes Per Day: 10 Smoked in Last 30 Days: No Use of substances other than those prescribed or required for medical reasons: No Advance Directives: No Advance Directives Information Provided: No Physical Exam ED Vital Signs: Vital Signs - 24 hr 06/26/22 16:26 06/26/22 18:01 06/26/22 19:21 Temperature 98.2 F 98.5 F Pulse Rate 70 77 81 Respiratory Rate 15 20 20 Blood Pressure 149/104 H 127/90 H 130/72 Pulse Oximetry 100 99 99 Oxygen Delivery Method Room Air Room Air Room Air Trach Collar 06/26/22 19:58 06/26/22 20:14 06/26/22 20:35 Temperature 98.1 F 98.5 F 98.6 F Pulse Rate 83 78 80 Respiratory Rate 16 16 16 Blood Pressure 114/82 113/83 111/75 Pulse Oximetry Oxygen Delivery Method BMI result Body Mass Index 35.9 Appearance: Alert. Oriented X3. No acute distress. Eyes: PERRLA, No Nystagmus ENT: Pharynx normal. Oral Mucosa moist tracheostomy in place Neck: Normal inspection. Neck supple. CVS: Normal heart rate and rhythm. Pulses normal. Respiratory: No respiratory distress. Equal air entry bilateral, no wheezing/rales/rhonchi Abdomen: Soft and nontender. Bowel sounds are present, no mass palpable, no CVA tenderness rectal: Small amount of fresh blood on the finger tip Skin: Skin warm and dry. Normal skin color. Normal skin turgor. Extremities: No lower extremity edema. No calf tenderness Neuro: Oriented X 3. No motor deficit. No sensory deficit.No cerebellar signs , cranial nerves II-XII intact Course Reevaluation(s) Reevaluation #1: Patient just had small bowel movement with fresh blood vital stable still patient refusing to be transferred will repeat H&H Time: 18:18 Reevaluation #2: Patient had another bowel movement which was bright red blood good amount. Re peat H&H was 12.4/34.4 which dropped from 13.3/37.5 at 15:00 patient agreed for transfer to [facility] unable to get bed at [facility] Dr. Fernandez accepted the patient at [facility] ED Time: 20:35 Medical Decision Making Medical Decision Making MDM Narrative: Patient chronic GI bleed status post endoscopy and colonoscopy which status post polypectomy which continued to bleed after 7 clips placed. H&H stable at this time. Case discussed with Gastroenterology Dr. Roque would prefer him to go to facility with IR option to embolize bleeding source. Patient would like to wait in the ER till a.m. as he is not bleeding at this time Dr. Roque agree to keep him for observation overnight if he starts bleeding will transfer the patient that time will give platelets were now patient is stable vitals are blood pressure 130/96 pulse rate 70 2045 patient received platelets in the ER still had 2 bowel movements bloody in the ER and once after colonoscopy in the recovery area. Patient agreed to be transferred at [facility] at bleeding continued vitals are stable Lab Data [facility] Lab Attestation statement: I reviewed the patient's lab results. 06/26/22 19:14 Labs: Lab Results 06/26/22 06/26/22 Range/Units 15:07 19:14 Hgb 12.4 L (14.0-18.0) g/dl Hct 34.4 L (42.0-52.0) % Blood Type A Positive Antibody Screen NEGATIVE External Record Review External record reviewed: Inpatient record [address] [address] Operative Note Signed with Perry Patient: Slick Bingham MR#: [id number] : 1975 Acct:[id number] Age/Sex: 47 / M Loc: HO.SSS ?? ? Attending Dr: Kevin Roque MD cc: Annetta Arreaga MD; Ana Ballard ANP-C; Kevin Roque MD~ ADDENDUMlabs noted with low plts and raised MCv, pt admits he drinks whiskey most days. Plts ordered. INR was ok. Addendum Dictated By: Kevin Roque MD Addendum Signed By: 06/26/221632 Addendum Cosigned By: DD/ TD/TT: 06/26/22 ADDENDUMnote: there were x 2 small variceal cords without high risk mcdaniel and which collapsed with air insufflation. Addendum Dictated By: Kevin Roque MD Addendum Signed By: 06/26/221516 Addendum Cosigned By: DD/ TD/TT: 06/26/22 Operative Note Operative Note Date of Service: 06/26/22 Narrative: Operative Information Procedure Description: EGD, Colonoscopy Indication: rectal bleeding Anesthesia: MAC FLEXIBLE TRANSORAL UPPER GASTROINTESTINAL ENDOSCOPY AND COLONOSCOPY PROCEDURE NOTE UPPER ENDOSCOPY Consent: Indications for the procedure and potential complications of bleeding, perforation, reaction to medications and missed diagnosis were discussed with the patient and informed consent was obtained. Instrument: Olympus GIF H 190 J mid size upper endoscope Monitoring: Vital signs and clinical assessment, continuous EKG monitoring, Pulse oximetry, Carbon Dioxide monitoring and blood pressure monitoring were done throughout the procedure. Procedure: The patient was placed in the left lateral decubitis position and pre-procedure medications were administered and a bite block was placed. The endoscope was inserted into the mouth and advanced under direct vision to the third part of duodenum. A careful inspection was made as the upper endoscope was withdrawn including a retroflexed examination of the proximal stomach; Findings and interventions are described below. Findings: Larynx:normal Esophagus: GE junction at 40? cm, diaphragm hiatus at 40 cm, lax LES Stomach: Patchy erythema . Biopsies were obtained. Grade 2 flap valve on retroflexed examination of the cardia. Duodenum: bulbar duodenitis, bx taken Intervention: Biopsies as noted above COLONOSCOPY Instrument: Olympus variable stiffness pediatric scope 190L Colonoscopy Monitoring: Vital signs and clinical assessment, continuous EKG monitoring, Pulse oximetry, Carbon Dioxide monitoring and blood pressure monitoring were done throughout the procedure. Colon withdrawal time was 1 hr 35 minutes. Procedure: The patient was placed in the left lateral decubitis position and pre-procedure medications were administered. After a digital rectal examination of the ano-rectum, the video colonoscope was inserted into the rectum and advanced through the colon to the cecum/TI. The colonoscope was slowly withdrawn in a retrograde panoramic fashion and the colon mucosa was carefully examined including a retroflexed view of the rectum. Findings and interventions are described below. Procedure Difficulty: easy Findings: Terminal Ileum-normal Cecum:normal Ascending Colon: normal Transverse Colon -normal Descending Colon: x 2 large pedunculated lesions measuring 2.2-3 cm in size were noted at 60 cm and 70 cm from anal verge. These were both removed with hot snare after initially being injected with few cc of epinephrine. The polyp at 60 cm was bleeding and despite 7 clips, hemospray and coagulation continued to bleed. Charlotte ink was injected at the polyp base for future reference. Sigmoid Colon: normal Rectosigmoid: x1 pedunculated polyp 3 cm in length, injected with epinephrine then removed with hot snare, x 2 clips applied for hemostasis. This was 20 cm from anal verge. Rectum: Retroflexion with small internal hemorrhoids, grade I, at 18 cm from anal verge a 12 mm pedunculated polyp removed with cold snare and in distal last 10 cm of rectum a sessile polyp 8 mm removed with cold snare with x 2 clips applied for hemostasis. Anorectum - normal Colon preparation: [place] Bowel Preparation Scale Right colon; 2 Transverse colon: 2 Left colon; 2 (0 = Unprepared colon segment with mucosa not seen due to solid stool that cannot be cleared. 1 = Portion of mucosa of the colon segment seen, but other areas of the colon segment not well seen due to staining, residual stool and/or opaque liquid. 2 = Minor amount of residual staining, small fragments of stool and/or opaque liquid, but mucosa of colon segment seen well. 3 = Entire mucosa of colon segment seen well with no residual staining, small fragments of stool or opaque liquid) Impression and Post Procedure Diagnosis: Endoscopy Findings: gastritis duodenitis Colonoscopy Findings: polyps internal hemorrhoids Plan: Await Pathology results Will transfer to ED for further assessment after drawing labs for type and screen, CBC etc. I called [facility] for transfer for IR embolization but they are closed to transfers at this time. Above findings were reviewed with the patient and relevant handouts were provided if indicated. Dictated By: Kevin Roque MD Signed By: <Electronically signed by Kevin Roque MD> 06/26/22 [address] [facility] Gastroenterology [address] [place] [address] Office Visit Report Signed Patient: Slick Bingham MR#: [id number] : 1975 Acct:[id number] Age/Sex: 46 / M ADM/SER Date: 10/08/21 Loc: HO.HGI ADM/SER Time:1133 Attending Provider: Ana Ballard ANP-C cc: Annetta Arreaga MD; Ana Ballard ANP-C~ Intake Vital Signs ? 10/08/2210:54 Height 5 ft 10 in Weight 249 lb BMI 35.7 BP 131/86 Blood Pressure Location Rt brachial Position Sitting Intake Visit Reasons:?Follow up RB, dyspepsia Intake Note: Patient returns to in office follow up of dyspepsia. CC: Patient reports doing well, states just only a little bit of blood in stools. Denies any other GI symptoms. Voice Over Announcer Required: No Accompanied by: Mother Allergies No Known Allergies [No Known Allergies*] Allergy (Verified 08/06/21 16:39) HPI Follow up RB, dyspepsia HPI ? ? ? Details Assessment & Plan (1) Dyspepsia: ?Code(s): R10.13 - Epigastric pain ?Plan: He is with his mother, Manuela. He had throat cancer and the larynx was removed - this was done at [facility] Dr. Slick Martin. He has a stoma and a tube was put in for him to swallow and he eats whole food.?[facility] [address] [place],?[place]??[address] Driving Directions [email or web address] tel:[phone] He has been having some N/V lately. No more diarrhea, but he is having rectal bleeding. His oncologist is at [facility]. He had a recent PET scan of the abdomen and the brain and he was told it was okay.. Not well her or on any blood thinners now, Metoprolol was decreased to 25, he is slightly tachy at 104 with mildly high BP, but PCP put him on some other BP med. Need to see if EGD can be done with [facility] surgeon, then can order either colonoscopy alone or EGD/colon. Will start famotidine for N/V (BCBS no PPI), as he was on this before. ROV 8 weeks (2) Blood in stool: ?Code(s): K92.1 - Melena (3) ETOH abuse: ?Code(s): F10.10 - Alcohol abuse, uncomplicated ? ? ? Medications: New famotidine (Pepcid ) ?40 mg? PO BEDTIME ? 30 tabs 3RF? ? ? R10.13 - Epigastri ? c pain? TODAYS VISIT He is here with his mother who is supportive. He never received the famotidine (he thinks but is unsure) but HB is better as is his diarrhea. Explained need to do scope and EGD, screening in r/t rectal bleeding and to assess for varicies in ETOH fibrosis. They are agreeable. On 10/04/21 @ 11:49 Romero Coyle Wrote To Clearance received, scanned in. FYI. On 10/02/21 @ 13:43 Romero Coyle Wrote To [facility] Followed up with Keri, she states they do not have request for clearance, despite my confirmation fax. Refaxed request to [phone] as requested. On 10/01/21 @ 10:25 Romero Coyle Wrote To [facility] Have not received response from office. Called to follow up, spoke with Keri. She will look into this matter and call back today. On 08/21/21 @ 17:54 Romero Coyle Wrote To [facility] Refaxed request for clearance. On 08/09/21 @ 14:57 Romero Coyle Wrote To [facility] Called office, spoke with Barb. Request faxed over to [phone]. On 08/08/21 @ 08:06 Ana Ballard Wrote To [facility] This pt had recent stoma surgery by this surgeon, can we contact him and make sure he is ok to have and EGD? He has N/V and this is the reason. [facility] [address] [place],?[place]??[address] Driving Directions [email or web address]+[address] tel:[phone]?? PFSH Medical History?(Updated 08/08/21 @ 08:07 by SHERITA Fields) Atrial flutter Chronic anticoagulation PAF (paroxysmal atrial fibrillation) Surgical History?(Updated 08/06/21 @ 16:42 by LOWELL Elena) H/O laryngectomy Family History? Father HTN (hypertension) Arthritis of kneeMother Arthritis of knee Social History? Alcohol intake:? unknown Cigarettes Per Day:? 10 Review of Systems Const Denies fatigue, Denies fever(s), Denies night sweats, Denies poor appetite and Denies weight loss ENT Reports Normal hearing present, Denies dental pain, Denies dysphagia, Denies hearing loss, Denies mouth pain, Denies odynophagia, Denies throat swelling, Denies tongue swelling and Reports other (Dentition adequate) Card Reports no additional complaints Resp Reports no additional complaints GI Denies abdominal pain, Denies melena, Denies bloating, Reports hematochezia, Denies constipation, Denies GI cramping, Denies dysphagia, Denies excessive flatus, Denies early satiety, Denies heartburn, Reports diarrhea, Denies nausea, Denies odynophagia, Denies vomiting and Denies hematemesis Skin/Breast Denies pruritus, Denies lesions, Denies rash and Denies jaundice Neuro Reports Normal hearing present and Denies Abnormal speech present Endo Denies fatigue Aller/Immun Denies throat swelling and Denies tongue swelling Physical Exam Vital Signs: Last Vital Signs BP ?131/86 ?10/08/21 11:54 BMI result Body Mass Index ? 35.7? Const General: cooperative, no acute distress, well developed and well groomed Nutritional Appearance: well nourished and overweight Orientation/consciousness: oriented to person, oriented to place and oriented to time Limitations: No language barrier and other limitations (Status post laryngectomy and needs to use a voice box to speak) HEENT Head: Yes normocephalic and Yes atraumatic Eyes General: appearance normal, both eyes and all related structures Pupils: Equal, round and reactive pupils present Neck Other: Stoma in middle of neck were larynx would be Neck: Yes no lymphadenopathy Thyroid: Thyroid normal Resp Effort & Inspection: normal respiratory effort and able to speak in complete sentences Auscultation: clear to auscultation bilaterally Cardio Rate: regular rate Rhythm: regular rhythm Heart sounds: Normal, physiologic split S2 sound present Peripheral pulses: radial pulses present and posterior tibial pulses present GI Inspection: No distended, No Abdominal panniculus present and Yes obesity Palpation (GI): Soft to palpation, nontender, no guarding, not rigid and No hepatosplenomegaly present Percussion: Yes normal to percussion Auscultation: normal bowel sounds Rectal Exam - Male: Yes deferred Skin General skin exam: no rashes or lesions noted, turgor normal, skin not dry, no jaundice, No spider nevi and no striae Rashes: no rashes Nails: normal Neuro General: oriented to person, oriented to place and oriented to time Cranial nerves: Yes Equal, round and reactive pupils present and Yes Normal hearing present Speech: No Abnormal speech present Extrem General: Yes normal to inspection, No clubbing, No cyanosis and No edema Psych Appearance: grossly normal and well kempt Mental Status: mental status grossly normal Speech and movement: Mute speech present Affect: normal affect Attitude: cooperative Thought process: Normal thought process present and not confabulating Thought content: Normal thought content present Insight: Limited insight present (Psych) Judgement: Limited judgement present (Psych) Assessment & Plan Assessment & Plan (1) Dyspepsia: ?Code(s): R10.13 - Epigastric pain ?Plan: He is here with his mother who is supportive. He never received the famotidine (he thinks but is unsure) but HB is better as is his diarrhea. Explained need to do scope and EGD, screening in r/t rectal bleeding and to assess for varicies in ETOH fibrosis. They are agreeable. On 10/04/21 @ 11:49 Romero Coyle Wrote To NellieMay Clearance received, scanned in. REBECCA. On 10/02/21 @ 13:43 Romero Coyle Wrote To [facility] Followed up with Keri, she states they do not have request for clearance, despite my confirmation fax. Refaxed request to [phone] as requested. On 10/01/21 @ 10:25 Romero Coyle Wrote To [facility] Have not received response from office. Called to follow up, spoke with Keri. She will look into this matter and call back today. On 08/21/21 @ 17:54 Romero Coyle Wrote To [facility] Refaxed request for clearance. On 08/09/21 @ 14:57 Romero Coyle Wrote To [facility] Called office, spoke with Barb. Request faxed over to [phone]. On 08/08/21 @ 08:06 NellieAna Wrote To G[facility] Nurses This pt had recent stoma surgery by this surgeon, can we contact him and make sure he is ok to have and EGD? He has N/V and this is the reason. [address],?[place]??[address] (2) Voice hoarseness: ?Code(s): R49.0 - Dysphonia (3) ETOH abuse: ?Code(s): F10.10 - Alcohol abuse, uncomplicated (4) Blood in stool: ?Code(s): K92.1 - Melena ? ? ? Medications: New peg 3350-electrolytes 236-22.74-6.74 -5.86 gram (Golytely) ?? until fecal effluent is clear; do not exceed a total volume of 2,000 mL 240 mL? PO Q10M 1 day 4,000 mL 0RF Z12.11 - Encounter for screening for malignant neoplasm of colon ? Coding Level of Care Code Est Pt Level 3 (65861) Diagnoses Dyspepsia? R10.13 Voice hoarseness? R49.0 ETOH abuse? F10.10 Blood in stool? K92.1 Documented By: Ana Ballard 10/08/21 1147 Signed By: <Electronically signed by Ana Ballard> 10/10/21 [facility] [address] [place] [phone] Relay Associate: Jass Hoffman M.D. Specimen Inquiry Name: Slick Bingham Age/Sex: 47/M : 1975 Unit#: [id number] Attend Dr: Kevin Roque MD Re06/26/22 Status: [facility] Location: [facility] Disch: SPEC : [id number] DUSTY: 06/26/22 STATUS: COMP REQ : [id number] RECD: 06/26/[address]: Kevin Roque MD COMP: 06/26/22 ENTERED: 06/26/[address]: Annetta Arreaga MD ORDERED: CBC No Diff Test Result Flag Reference Site WBC 5.4 4.8-10.8 X10*3/uL RBC 3.73 L 4.60-5.80 X1 0*6/uL HGB 13.3 L 14.0-18.0 g/dl HCT 37.5 L 42.0-52.0 % MCV 100.5 H 80.0-98.0 fL MCH 35.7 H 27.0-33.0 pg MCHC 35.5 31.0-36.0 g/dl RDW 13.2 11.0-16.0 % PLT 132 L 160-400 X10*3/uL MPV 9.4 9.4-12.4 fL NRBC Pct Auto 0.0 0.0-0.2 /100WBC NRBC Abs Auto 0.000 0.0-0.012 X10*3/uL RUN: 06/26/222050 PAGE 1 [facility] [address] [place] [phone] Relay Associate: Jass Hoffman M.D. Specimen Inquiry Name: Slick Bingham Age/Sex: 47/M : 1975 Unit#: [id number] Attend Dr: Kevin Roque MD Re06/26/22 Status: REG [facility] Location: [facility] Disch: SPEC : [id number] DUSTY: 06/26/22 STATUS: COMP REQ : [id number] RECD: 06/26/[address]: Kevin Roque MD COMP: 06/26/22-153 ENTERED: 06/26/22-[address]: Annetta Arreaga MD ORDERED: CMP Test Result Flag Reference Site Sodium 138 135-145 mmol/L Potassium 4.5 3.3-5.1 mmol/L CL 99 96-108 mmol/L CO2 26 22-29 mmol/L Gap 18 12-20 BUN 9 9-16 mg/dL Creat 1.06 0.5-1.4 mg/dL Estimated CrCl 110.5 eGFR (calculated from the MDRD study equation) and eCrCl (calculated from the Cockcroft-Gault equation) are based on different parameters and may not yield comparable results. If eCrCl result is absurd, please check patient's height/weight. EGFR > 60 NOTE: For -Sudanese individuals, multiply the result by 1.210. Chronic Kidney Disease: Estimated GFR < 60 mL/min/1.73m2 Severe Kidney Disease: Estimated GFR < 15 mL/min/1.7 3m2 Glucose, Random 115 60-115 mg/dL CA 9.2 # 8.4-10.2 mg/dL Total Bili 1.9 H 0.0-1.0 mg/dL AST (GOT) 103 H 5-37 U/L ALT (GPT) 64 H 0-40 U/L Protein, Total 6.5 6.5-8.0 g/dL Alb 4.2 3.5-5.0 g/dL Alk Phos 112 39-117 U/L RUN: 06/26/222050 PAGE 1 [facility] [address] [place] [phone] Relay Associate: Jass Hoffman M.D. Specimen Inquiry Name: Slick Bingham Age/Sex: 47/M : 1975 Unit#: [id number] Attend Dr: Kevin Roque MD Re06/26/22 Status: [facility] Location: [facility] Disch: SPEC : [id number] DUSTY: 06/26/22 STATUS: COMP REQ : [id number] RECD: 06/26/[address]: Kevin Roque MD COMP: 06/26/22 ENTERED: 06/26/221433 [facility] DR: Annetta Arreaga MD ORDERED: PT INR Test Result Flag Reference Site PT 12.3 10.0-13.1 SEC INR 1.1 0.9-1.1 INTERNATIONAL NORMALIZED RATIO (INR) REFERENCE RANGES Reference Range For patients not on anticoagulant therapy: 0.9 - 1.1 INR ranges for oral anticoagulant therapy: For prevention and treatment of venous thrombosis and pulmonary embolism: 2.0 - 3.0 For acute myocardial infarction with aspirin therapy: 2.0 - 3.0 For acute myocardial infarction without aspirin therapy: 3.0 - 4.0 For patients with mechanical prosthetic heart valves: 2.5 - 3.5 END OF REPORT END OF REPORT Discharge Plan Discharge Clinical Impression: Acute lower GI hemorrhage Patient Disposition: [facility] Transfer Details: [facility] ED Dr. Ben cowart Prescriptions: No Action metoprolol succinate 50 mg tablet extended release 24 hr 50 mg PO DAILY Qty: 90 3RF fluoxetine 20 mg capsule 20 mg PO DAILY allopurinol 100 mg tablet 100 mg PO DAILY amlodipine 2.5 mg tablet 2.5 mg PO DAILY dextroamphetamine-amphetamine 15 mg tablet 1 tab PO BID risperidone 2 mg tablet 2 mg PO QPM levothyroxine 50 mcg tablet 50 mcg PO QAM famotidine 40 mg tablet 40 mg PO BEDTIME Qty: 90 1RF Referrals: Annetta Arreaga MD [Primary Care Provider] - 1 Week
--- NOTE | 2022-06-26 19:09 | PC.NURSE ---
Dr Roque placed order to transfuse platelets - due t pt coming from PACU platelets were ordered under different MC number than pt in ED status. will contact blood bank for further direction
--- NOTE | 2022-06-26 19:09 | PC.NURSE ---
Telephone call made to the blood bank regarding platelets ordered during short stay surgery. There is no current order in the ED to transfuse platelets. Blood bank will contact shore working supervisor to correct this error and will call the ED when fixed and platelets can be transfused.
[2022-06-26 19:21] LABS: Hematocrit 34.4 % (42.0-52.0); Hemoglobin 12.4 g/dl (14.0-18.0)
--- NOTE | 2022-06-26 20:07 | PC.NURSE ---
pt a&o, platelets started, pt continue to have bloody stool, provider into assess, plan is for pt to be transferred at this time, Will continue to monitor.
--- NOTE | 2022-06-26 20:38 | PC.NURSE ---
transfusion completed, pt tolerated well, no sign of distress.
--- NOTE | 2022-06-26 20:43 | MHC.EDTECH ---
pt will be transfered to [facility] via [facility] at 2100. accepting physician is
--- NOTE | 2022-06-26 21:00 | PC.NURSE ---
Report called to [place] transport line. 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
== END 2022-06-26 21:07 | disposition short-term general hospital (02) ==
PROVIDERS: Emergency Provider Internal Medicine; PCP Pediatrics
DX: K91.840 Postprocedural hemorrhage of a digestive system organ or structure following a digestive system procedure (principal); K62.9 Disease of anus and rectum, unspecified; E78.5 Hyperlipidemia, unspecified; I48.0 Paroxysmal atrial fibrillation; Z79.01 Long term (current) use of anticoagulants; Z79.899 Other long term (current) drug therapy
CPT/HCPCS: 36415; 85014; 85018; 86850; 86900; 86901; 99285; P9073

== ENCOUNTER → 2022-07-22 12:25 | Outpatient (BNVA) | payer BC, SELFPAY | PROVIDERS: PCP Pediatrics; Referring Provider Pediatrics; Visit Provider Internal Medicine Cardiovascular Disease | DX: I48.0 Paroxysmal atrial fibrillation (principal); I10 Essential (primary) hypertension | CPT/HCPCS: 93005 ==

== ENCOUNTER 2022-10-07 07:58 | Day surgery (SDC) | payer BC, SELFPAY ==
[2022-10-03 07:38] VITALS: BMI 35.3
--- NOTE | 2022-10-06 10:52 | HO.ANESPROP2 ---
Documented by User: Gris Baez NP 10/06/22 10:55 HPI - Anesthesia Eval Consult details Narrative: 47yo M for Colonoscopy s/p EGD/[place] 06/2022. 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 Last seen 07/2022. Stable for 1 year f/u Daily ETOH use Hx +Utox PMFSH Active Problems Active Problems: All Active Problems (Updated 07/22/22 @ 13:01 by Filemon Salazar MD) Essential hypertension (Acute) Blood in stool (Acute) ETOH abuse (Acute) Drug use (Acute) LLQ pain (Acute) Diarrhea (Acute) Vomiting (Acute) Voice hoarseness (Acute) Sore throat (Acute) Preoperative cardiovascular examination (Acute) Dyspepsia (Acute) Pre-op examination (Acute) History of drug abuse (Acute) History of alcohol abuse (Acute) History of throat cancer (Acute) H/O laryngectomy (Acute) PAF (paroxysmal atrial fibrillation) (Acute) Past Medical History Medical History (Updated 07/22/22 @ 13:01 by Filemon Salazar MD) Anxiety Atrial flutter Chronic anticoagulation Depression Dyslipidemia Essential hypertension Gout History of alcohol abuse History of drug abuse History of throat cancer On beta ana at home PAF (paroxysmal atrial fibrillation) Family History Family History Father HTN (hypertension) Arthritis of knee Mother Arthritis of knee Family history of problems with anesthesia: No Surgical History Surgical History H/O laryngectomy History of tonsillectomy Hx of arthroscopic knee surgery History of Problems with Anesthesia: No Social History Social History Alcohol intake: never Patient Tobacco Use Status: Former Tobacco user Quit Date: 2 yrs ago Cigarettes Per Day: 10 Meds Allergies Allergy/AdvReac Type Severity Reaction Status Date / Time No Known Allergies Allergy Verified 05/20/22 12:03 [No Known Allergies*] Home Medications Medication Instructions Recorded Confirmed Last Taken Type fluoxetine 20 mg capsule 20 mg PO DAILY 06/03/0110/07/22 10/07/22 History allopurinol 100 mg tablet 100 mg PO DAILY 10/22/20 10/07/22 10/07/22 History dextroamphetamine-amphetamine 15 1 tab PO BID 10/08/21 07/22/22 02/06/22 05:00 History mg tablet risperidone 2 mg tablet 2 mg PO QPM 10/08/21 07/22/22 Unknown History levothyroxine 50 mcg tablet 50 mcg PO QAM 05/20/22 10/07/22 10/07/22 History Exam Exam Date and Time: October 06, 2022 1052 Height,Weight and Vital Signs: Height 5 ft 10 in Weight 111.584 kg Pertinent Lab Results Pertinent Lab Results: Laboratory Tests 06/26/22 06/26/22 06/26/22 15:07 15:07 19:14 WBC 5.4 Hgb 12.4 L Hct 34.4 L Plt Count 132 L Sodium 138 Potassium 4.5 Chloride 99 Carbon Dioxide 26 BUN 9 Creatinine 1.06 Narrative Narrative: EKG 07/2022 normal sinus rhythm normal EKG at 78 beats per minute Assessment and Plan Assessment Anesthesia Assessment: Chart Reviewed Final Anesthetic Review Family History of Problems with Anesthesia: No History of Problems with Anesthesia: No Documented by User: Bill Combs MD 10/08/22 02:21 [facility] Past Medical History Medical History (Updated 07/22/22 @ 13:01 by Filemon Salazar MD) Anxiety Atrial flutter Chronic anticoagulation Depression Dyslipidemia Essential hypertension Gout History of alcohol abuse History of drug abuse History of throat cancer On beta ana at home PAF (paroxysmal atrial fibrillation) Family History Family History Father HTN (hypertension) Arthritis of knee Mother Arthritis of knee Surgical History Surgical History H/O laryngectomy History of tonsillectomy Hx of arthroscopic knee surgery Social History Social History Alcohol intake: never Patient Tobacco Use Status: Former Tobacco user Quit Date: 2 yrs ago Cigarettes Per Day: 10 Meds Allergies Allergy/AdvReac Type Severity Reaction Status Date / Time No Known Allergies Allergy Verified 05/20/22 12:03 [No Known Allergies*] Home Medications Medication Instructions Recorded Confirmed Last Taken Type fluoxetine 20 mg capsule 20 mg PO DAILY 07/10/20 10/07/22 10/07/22 History allopurinol 100 mg tablet 100 mg PO DAILY 10/22/20 10/07/22 10/07/22 History dextroamphetamine-amphetamine 15 1 tab PO BID 10/08/21 07/22/22 02/06/22 05:00 History mg tablet risperidone 2 mg tablet 2 mg PO QPM 10/08/21 07/22/22 Unknown History levothyroxine 50 mcg tablet 50 mcg PO QAM 05/20/22 10/07/22 10/07/22 History Exam Airway Mallampati Class: IV Loose/Missing/Broken Teeth: Yes Assessment and Plan Assessment Anesthesia Assessment: Anesthesia Plan Discussed Final Anesthetic Review NPO: Yes ASA Class: III Final Preanesthetic Review: Meds/Allgs Chart Reviewed, Consent Obtained/Reviewed and Anes Risks/Benef Reviewed Patient Risk: Intermediate Procedure Risk: Intermediate Anesthetic Plan Anesthetic Plan: MAC: Disposition: Standard PACU
[2022-10-07 08:14] VITALS: BP 131/89; PULSE 98; RESP 18; TEMP 36.7; O2SAT 98
[2022-10-07] MEDS: Lactated Ringers 1,000 ML 100 ML IVCONT (08:23)
--- NOTE | 2022-10-07 08:52 | PC.NURSE ---
resp by bedside receiving cool mist treatment.
--- NOTE | 2022-10-07 08:56 | PC.RT ---
RT called to [facility] for patient with tracheostomy. Pt awake and coop in bed up 45 degrees. Pt was in no distress, able to ind remove cap and was receptive to cool mist @25% fio2 via 5 lpm utilizing trach mask. RN present. Pts cap labled and placed with belongings.
--- NOTE | 2022-10-07 09:00 | P.HPSUR_ITS ---
Pre-Procedural Eval Section A Date of Service: 10/07/22 Section B Chief Complaint: Polyp of colon, Relevant Family History (Specify if Yes): No Relevant Social History: None Present Medications: see Short Stay Collaborative assessment Medical History: Significant History (Anxiety Atrial flutter Chronic anticoagulation Depression Dyslipidemia Essential hypertension Gout History of alcohol abuse History of drug abuse History of throat cancer On beta ana at home PAF (paroxysmal atrial fibrillation)) History of Previous Operations: Relevant previous surgery/procedure and date(s) (H/O laryngectomy History of tonsillectomy Hx of arthroscopic knee surgery) Allergies: Allergies Allergy/AdvReac Type Severity Reaction Status Date / Time No Known Allergies Allergy Verified 05/20/22 12:03 [No Known Allergies*] Review of Systems Sugical H&P ROS: Negative: Constitution, Cardiovascular, Respiratory, Neurological, Psychiatric, Hem-Onc, Allergic/Immunologic, Gastrointestinal, Genitourinary, Musculoskeletal, Integumentary, Endocrine and Eyes/Ears/Nose /Throat Exam Surgical H&P Exam: Normal: HEENT, Normal: Heart, Normal: Lungs, Normal: Extremities, Normal: Abdomen, Normal: Skin and Normal: Neurological Plan Diagnosis/Plan: Unchanged I have reviewed the history and physical and performed a pertinent physical examination on my patient. No changes have occurred unless specified. Time Spent With Patient Time: Total time managing care of this patient today ____ minutes.
--- NOTE | 2022-10-07 09:02 | W.PM.OPN ---
Operative Note Operative Note Date of Service: 10/07/22 Narrative: Operative Information Procedure Description: Colonoscopy Indication: hx of colon polyps Anesthesia: MAC COLONOSCOPY Instrument: Olympus variable stiffness ADULT scope 190L Colonoscopy Monitoring: Vital signs and clinical assessment, continuous EKG monitoring, Pulse oximetry, Carbon Dioxide monitoring and blood pressure monitoring were done throughout the procedure. Colon withdrawal time was 15 minutes. Procedure: The patient was placed in the left lateral decubitis position and pre-procedure medications were administered. After a digital rectal examination of the ano-rectum, the video colonoscope was inserted into the rectum and advanced through the colon to the cecum/TI. The colonoscope was slowly withdrawn in a retrograde panoramic fashion and the colon mucosa was carefully examined including a retroflexed view of the rectum. Findings and interventions are described below. Procedure Difficulty: easy Findings: Terminal Ileum-normal Cecum:normal Ascending Colon: normal Transverse Colon -normal Descending Colon: 10 mm sessile polyp removed with cold snare and x 1 clip applied for hemostasis, at a prior polypectomy site at about 65 cm x2 old clips noted with surrounding granular/polypoid tissue removed with forceps and snare and then ablated with soft tip coag. Sigmoid Colon: normal Rectum: Retroflexion with medium sized internal hemorrhoids, grade I, at about 20 cm granular polypoid tissue over prior resection noted, removed with cold snare Anorectum - normal Colon preparation: [place] Bowel Preparation Scale Right colon; 2 Transverse colon: 2 Left colon; 2 (0 = Unprepared colon segment with mucosa not seen due to solid stool that cannot be cleared. 1 = Portion of mucosa of the colon segment seen, but other areas of the colon segment not well seen due to staining, residual stool and/or opaque liquid. 2 = Minor amount of residual staining, small fragments of stool and/or opaque liquid, but mucosa of colon segment seen well. 3 = Entire mucosa of colon segment seen well with no residual staining, small fragments of stool or opaque liquid) Impression and Post Procedure Diagnosis: polyps internal hemorrhoids Plan: High fiber diet leaflet Avoid straining at stool, epsom salts and sitz bath, anusol supps or cream Repeat Colonoscopy in 6-12 months or earlier if clinically indicated Above findings were reviewed with the patient and relevant handouts were provided if indicated.
[2022-10-07 09:59] VITALS: BP 126/97; PULSE 75; RESP 16; TEMP 37.1; O2SAT 99
[2022-10-07 10:22] VITALS: BP 151/94; PULSE 79; RESP 16; TEMP 36.7; O2SAT 99
== END 2022-10-07 10:33 | disposition home or self-care (01) ==
PROVIDERS: PCP Pediatrics; Visit Provider Internal Medicine Gastroenterology
PROC: 0DJD8ZZ Inspection of Lower Intestinal Tract, Via Natural or Artificial Opening Endoscopic (ICD-10-PCS; CPT 45378; principal; 2022-10-07 09:20)
DX: Z12.11 Encounter for screening for malignant neoplasm of colon (principal); Z86.010 Personal history of colon polyps; K62.82 Dysplasia of anus; D12.4 Benign neoplasm of descending colon; K62.1 Rectal polyp; K64.0 First degree hemorrhoids; I48.92 Unspecified atrial flutter; I10 Essential (primary) hypertension; M10.9 Gout, unspecified; E78.5 Hyperlipidemia, unspecified; F32.A Depression, unspecified; I48.0 Paroxysmal atrial fibrillation; F41.1 Generalized anxiety disorder; Z85.21 Personal history of malignant neoplasm of larynx; F10.11 Alcohol abuse, in remission; F19.11 Other psychoactive substance abuse, in remission; Z79.01 Long term (current) use of anticoagulants; Z79.899 Other long term (current) drug therapy; Z87.891 Personal history of nicotine dependence
CPT/HCPCS: 45385; 45380; 88305

== ENCOUNTER → 2022-10-07 07:58 | Outpatient (BNV) | payer BC, SELFPAY | PROVIDERS: PCP Pediatrics; Visit Provider Internal Medicine Gastroenterology | DX: Z86.010 Personal history of colon polyps (principal); D12.4 Benign neoplasm of descending colon; D12.8 Benign neoplasm of rectum; K64.0 First degree hemorrhoids | CPT/HCPCS: 45380; 45385 ==

== ENCOUNTER 2022-12-04 15:34 | Outpatient (REF) | payer BC, SELFPAY ==
[2022-12-04 17:59] LABS: Alanine Aminotransferase 205 U/L (0-40); Albumin Level 4.6 g/dL (3.5-5.0); Alkaline Phosphatase 98 U/L (39-117); Aspartate Amino Transferase 140 U/L (5-37); Bilirubin Direct 0.3 mg/dL (0.0-0.5); Bilirubin Total 0.8 mg/dL (0.0-1.0); Total Protein 7.6 g/dL (6.5-8.0)
[2022-12-05 03:48] LABS: HBS Num1 0.09 mIU/mL (0-7.99); HBc Num1 0.16 S/CO (0.00-0.79); HBsAGNum1 0.32 S/CO (0.00-0.99); Hepatitis A Antibody IgM 0.21 Index (0-0.79); Hepatitis B Core Antibody Nonreactive (Nonreactive); Hepatitis B Surface Antigen Negative (Negative); ~HepC Num1 0.15 S/CO (0.00-0.79); ~Hepatitis A Antibody IgM Nonreactive (Nonreactive); ~Hepatitis B Surface Antibody NONREACTIVE (Nonreactive); ~Hepatitis C Antibody Nonreactive (Nonreactive)
[2022-12-08 12:47] LABS: Alpha Fetoprotein 12.7 ng/mL (<6.1)
== END 2022-12-04 15:35 | disposition home or self-care (01) ==
LOC: HO.CHCLDS 15:34
PROVIDERS: Visit Provider Pediatrics
DX: R74.8 Abnormal levels of other serum enzymes (principal)
CPT/HCPCS: 36415; 80076; 82105; 86704; 86706; 86709; 86803; 87340

== ENCOUNTER 2023-01-07 07:50 | Outpatient (REF) | payer BC, SELFPAY ==
--- NOTE | ~2023-01-07 | US_ITS ---
EXAMINATION: US ABDOMEN LIMITED CLINICAL INFORMATION: Elevated liver enzymes. COMPARISON: CT abdomen and pelvis 06/27/2022. TECHNIQUE: Real-time imaging of the right upper quadrant abdominal viscera. FINDINGS: PANCREAS: Unremarkable where seen LIVER: The liver is normal in size. The liver contour is normal. Parenchymal echogenicity is normal. Echogenic lesion in the right lobe of the liver measured 1.6 x 1.6 x 1.07 cm consistent with the appearance of hemangioma. There is no intrahepatic biliary duct dilatation seen. GALLBLADDER: Normal. The gallbladder is physiologically distended without evidence of stones, sludge, polyps, wall thickening or pericholecystic fluid. COMMON BILE DUCT: Normal in caliber measuring 0.44 cm in diameter. RIGHT KIDNEY: Normal. No hydronephrosis. No renal calculi or focal parenchymal lesions. The kidney measures 11.2 cm in maximum dimension. FREE FLUID: None. US/US abdomen limited IMPRESSION: Hemangioma in the right lobe of the liver
== END 2023-01-07 07:51 | disposition home or self-care (01) ==
LOC: HO.US 07:50
PROVIDERS: PCP Pediatrics; Visit Provider Pediatrics
DX: R74.8 Abnormal levels of other serum enzymes (principal)
CPT/HCPCS: 76705

== ENCOUNTER 2023-02-20 11:05 | Outpatient (REF) | payer BC, SELFPAY ==
[2023-02-20 15:14] LABS: Alanine Aminotransferase 31 U/L (0-40); Albumin Level 4.5 g/dL (3.5-5.0); Alkaline Phosphatase 62 U/L (39-117); Aspartate Amino Transferase 30 U/L (5-37); Bilirubin Direct 0.2 mg/dL (0.0-0.5); Bilirubin Total 0.6 mg/dL (0.0-1.0); Total Protein 7.2 g/dL (6.5-8.0)
== END 2023-02-20 11:06 | disposition home or self-care (01) ==
LOC: HO.CHCLDS 11:05
PROVIDERS: Visit Provider Pediatrics
DX: F10.10 Alcohol abuse, uncomplicated (principal)
CPT/HCPCS: 36415; 80076

== ENCOUNTER 2023-07-20 12:04 | Outpatient (AMB) | payer MEDICARE, SELFPAY ==
--- NOTE | 2023-07-20 12:31 | MHC.OFFVIS ---
Vital Signs 07/20/23 12:32 Height 5 ft 10 in Weight 156 lb 8.451 oz BMI 22.5 BP 114/62 Blood Pressure Location Lt brachial Position Sitting Pulse 78 Intake Visit Reasons: 1 yr f/u Intake Note: 1 year follow-up with ekg feeling good can get a little dizzy at times Hatch Tender Required: No Accompanied by: Mother Allergies No Known Allergies [No Known Allergies*] Allergy (Verified 05/20/22 12:03) Medication List - Last Reconciled 07/20/23 by Filemon Salazar MD allopurinol 100 mg PO DAILY dextroamphetamine-amphetamine 15 mg 1 tab PO BID levothyroxine 50 mcg PO QAM metoprolol succinate ER 50 mg PO DAILY naltrexone 50 mg PO DAILY sodium,potassium,mag sulfates 17.5-3.13-1.6 gram (Suprep Bowel Prep Kit) DILUTE; drink 1/2 at 6-8 pm and half at 11 PM- 1AM HPI Comments Details: Sreedhar comes for follow-up. He denies any significant cardiac symptoms. He has lost significant amount weight. He says swallowing is an issue. He drinks about 60 oz of water a day. Complains of orthostatic lightheadedness. No clear syncopal episode at this point time. No prolonged palpitation irregular heartbeat. No exertional chest pain or shortness of breath. Has not had alcohol for about 9 months [facility] Medical History (Updated 07/22/22 @ 13:01 by Filemon Salazar MD) On beta ana at home History of drug abuse History of alcohol abuse Essential hypertension Gout Dyslipidemia History of throat cancer Depression Anxiety Atrial flutter Chronic anticoagulation PAF (paroxysmal atrial fibrillation) Surgical History Hx of arthroscopic knee surgery History of tonsillectomy H/O laryngectomy Family History Father HTN (hypertension) Arthritis of knee Mother Arthritis of knee Social History Alcohol intake: never Patient Tobacco Use Status: Former Tobacco user Cigarettes Per Day: 10 Review of Systems Const Denies chills, Denies fatigue, Denies fever(s), Denies frequent falls, Denies weakness, Denies weight gain and Denies weight loss ENT Denies dizziness Card Denies chest pain, Denies leg edema, Denies lightheadedness, Denies palpitations, Denies dyspnea, Denies dyspnea on exertion, Denies orthopnea and Denies other (loss of consciousness) Resp Denies cough, Denies dyspnea and Denies dyspnea on exertion GI Denies hematochezia and Denies change in stool character Musc Denies abnormal gait, Denies muscle weakness, Denies numbness, Denies radiating pain into limb and Denies tingling Neuro Denies abnormal gait, Denies dizziness, Denies frequent falls, Denies numbness, Denies tingling and Denies weakness Endo Denies fatigue and Denies palpitations Physical Exam Vital Signs: Last Vital Signs Pulse 78 07/20/23 12:32 BP 114/62 07/20/23 12:32 BMI result Body Mass Index 22.5 Const General: cooperative, comfortable, alert and awake Nutritional Appearance: underweight Orientation/consciousness: patient oriented x3 Limitations: no limitations Neck Neck: Yes trachea midline, Yes no JVD and Yes other (Tracheostomy tube in place) Resp Effort & Inspection: normal respiratory effort Auscultation: clear to auscultation bilaterally Cardio Jugular venous distension: no JVD Palpation: normal PMI Rate: regular rate Rhythm: regular rhythm Heart sounds: S1 normal heart sound present, S2 normal heart sound present, no click, no gallops and no murmurs GI Auscultation: normal bowel sounds Skin General skin exam: no rashes or lesions noted Neuro General: patient oriented x3 and no focal motor deficits Extrem General: Yes no clubbing, cyanosis or edema Psych Appearance: grossly normal Office Procedures EKG Details: EKG shows normal sinus rhythm with normal EKG [id number], Complete Assessment & Plan Assessment & Plan (1) PAF (paroxysmal atrial fibrillation): Comment: follows w/[facility]-last appt 07/2021 with a 1 year follow-up scheduled for 07/22/22 Code(s): I48.0 - Paroxysmal atrial fibrillation Category: Medical Plan: Paroxysmal atrial fibrillation which has done well on with rhythm control approach. Currently without any obvious symptoms. Continue metoprolol therapy. Alcohol cessation was applauded. However given his symptoms will reduce metoprolol to 25 mg daily. Avoid other stimulants. Advised to call me with any new symptoms. No indication for oral anticoagulation therapy (2) Orthostatic lightheadedness: Code(s): R42 - Dizziness and giddiness Plan: Orthostatic lightheadedness related to relative hypovolemia as well as effect of metoprolol therapy. Will reduce metoprolol 25 mg daily. Increase fluid intake up to 60 oz a day. Orthostatic precautions were discussed. Coding Level of Care Code Est Pt Level 4 (55700) Diagnoses PAF (paroxysmal atrial fibrillation) I48.0 Orthostatic lightheadedness R42 CPT Codes EKG - CPT: [id number], Complete ([id number])
[2023-07-20 12:32] VITALS: BP 114/62; PULSE 78; BMI 22.5
== END 2023-07-20 12:54 | disposition home or self-care (01) ==
PROVIDERS: PCP Pediatrics; Visit Provider Internal Medicine Cardiovascular Disease
DX: I48.0 Paroxysmal atrial fibrillation (principal); R42 Dizziness and giddiness
CPT/HCPCS: 93010; 99214

== ENCOUNTER → 2023-07-20 12:04 | Outpatient (BNVA) | payer MEDICARE, SELFPAY | PROVIDERS: PCP Pediatrics; Visit Provider Internal Medicine Cardiovascular Disease | DX: I48.0 Paroxysmal atrial fibrillation (principal); R42 Dizziness and giddiness | CPT/HCPCS: 93005; 99212 ==

== ENCOUNTER 2023-07-28 11:55 | Outpatient (REF) | payer MEDICARE, SELFPAY ==
[2023-07-28 14:24] LABS: MANUAL DIFF FLAG NO
[2023-07-28 14:36] LABS: Basophils Percent Auto 0.5 % (0-2); Eosinophils Percent Auto 0.5 % (0-4); Hemoglobin 15.1 g/dl (14.0-18.0); Imm Gran Abs Auto 0.02 X10*3/uL (0.00-0.03); Imm Gran Pct Auto 0.4 % (0.0-0.4); Lymphocytes Percent Auto 18.2 % (20-40); Mean Corpuscular Hemoglobin 30.8 pg (27.0-33.0); Mean Corpuscular Volume 85.5 fL (80.0-98.0); Mean Platelet Volume 10.7 fL (9.4-12.4); Monocytes Absolute Auto 0.3 X10*3/uL (0.1-1.2); Monocytes Percent Auto 5.5 % (2-11); NRBC Pct Auto 0.5 /100WBC (0.0-0.2); Neutrophils Absolute Auto 4.2 x10*3/uL (2.0-8.3); Neutrophils Percent Auto 74.9 % (45-73); Platelet Count 317 X10*3/uL (160-400); Red Blood Count 4.91 X10*6/uL (4.60-5.80); Red Cell Distribution Width 12.9 % (11.0-16.0); White Blood Count 5.6 X10*3/uL (4.8-10.8)
[2023-07-28 15:00] LABS: Alanine Aminotransferase 37 U/L (0-40); Albumin Level 4.9 g/dL (3.5-5.0); Alkaline Phosphatase 62 U/L (39-117); Anion Gap 12 (12-20); Aspartate Amino Transferase 32 U/L (5-37); Bilirubin Total 0.7 mg/dL (0.0-1.0); Blood Urea Nitrogen 22 mg/dL (9-16); Calcium 10.6 mg/dL (8.4-10.2); Carbon Dioxide 28 mmol/L (22-29); Chloride 105 mmol/L (96-108); Estimated Glomerular Filt Rate > 60; Glucose Random 92 mg/dL (60-115); Potassium 4.5 mmol/L (3.3-5.1); Sodium 140 mmol/L (135-145); Total Protein 7.5 g/dL (6.5-8.0)
[2023-07-28 15:07] LABS: TSH reflex Free T4 2.74 uIU/mL (0.32-4.0)
[2023-07-28 15:26] LABS: Folate 14.3 ng/mL (> or = 4.0); Vitamin B12 816 pg/mL (200-900)
[2023-07-29 08:18] LABS: Triiodothyronine T3 Total 84 ng/dL (76-181)
== END 2023-07-28 11:56 | disposition home or self-care (01) ==
LOC: HO.CHCLDS 11:55
PROVIDERS: Visit Provider Pediatrics
DX: R63.4 Abnormal weight loss (principal); E03.8 Other specified hypothyroidism
CPT/HCPCS: 36415; 80053; 82607; 82746; 84443; 84480; 85025

== ENCOUNTER 2023-08-19 07:48 | Day surgery (SDC) | payer MEDICARE, SELFPAY ==
--- NOTE | 2023-08-18 13:09 | HO.ANESPROP2 ---
Documented by User: Gris Baez NP 08/18/23 13:13 HPI - Anesthesia Eval Consult details Narrative: 48yo M for Colonoscopy s/p Colonoscopy 09/2022 with TIVA s/p EGD/[place] 06/2022. 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 Last seen 07/2023. Some c/o orthostatic - metoprolol decreased and stable for 1 year f/u QOD ETOH use Hx +Utox PMFSH Active Problems Active Problems: All Active Problems Essential hypertension (Acute) Blood in stool (Acute) ETOH abuse (Acute) Drug use (Acute) LLQ pain (Acute) Diarrhea (Acute) Vomiting (Acute) Voice hoarseness (Acute) Sore throat (Acute) Preoperative cardiovascular examination (Acute) Dyspepsia (Acute) Pre-op examination (Acute) History of drug abuse (Acute) History of alcohol abuse (Acute) History of throat cancer (Acute) H/O laryngectomy (Acute) PAF (paroxysmal atrial fibrillation) (Acute) Past Medical History Medical History (Updated 07/22/22 @ 13:01 by Filemon Salazar MD) On beta ana at home History of drug abuse History of alcohol abuse Essential hypertension Gout Dyslipidemia History of throat cancer Depression Anxiety Atrial flutter Chronic anticoagulation PAF (paroxysmal atrial fibrillation) Family History Family History Father HTN (hypertension) Arthritis of knee Mother Arthritis of knee Family history of problems with anesthesia: No Surgical History Surgical History (Updated 08/19/23 @ 08:23 by Audrey Rangel RN) Hx of colonoscopy with polypectomy Hx of arthroscopic knee surgery History of tonsillectomy H/O laryngectomy History of Problems with Anesthesia: No Social History Social History Alcohol intake: never Patient Tobacco Use Status: Former Tobacco user Cigarettes Per Day: 10 Use of substances other than those prescribed or required for medical reasons: Yes Substance Use Type Other:: CBD gummies for anxiety Are you DNR?: No Advance Directives: No Advance Directives Information Provided: Yes Meds Allergies Allergy/AdvReac Type Severity Reaction Status Date / Time No Known Allergies Allergy Verified 05/20/22 12:03 [No Known Allergies*] Home Medications ?Medication ?Instructions ?Recorded ?Confirmed ?Last Taken ?Type allopurinol 100 mg tablet 100 mg PO DAILY 10/22/20 08/19/23 10/07/22 History dextroamphetamine-amphetamine 15 1 tab PO BID 10/08/21 08/19/23 02/06/22 05:00 History mg tablet levothyroxine 50 mcg tablet 50 mcg PO QAM 05/20/22 08/19/23 08/19/23 History naltrexone 50 mg tablet 50 mg PO DAILY 07/20/23 08/19/23 Unknown History venlafaxine 37.5 mg 37.5 mg PO DAILY 08/19/23 08/19/23 Unknown History capsule,extended release 24 hr Exam Pertinent Lab Results Pertinent Lab Results: Laboratory Tests 07/28/23 11:57 WBC 5.6 Hgb 15.1 D Hct 42.0 D Plt Count 317 D Sodium 140 Potassium 4.5 Chloride 105 Carbon Dioxide 28 BUN 22 H Creatinine 0.80 Narrative Narrative: EKG 07/2023 normal sinus rhythm with normal EKG ECHO 2021 Conclusions: - 1. Normal LV systolic function 2. Normal cardiac valvular Doppler 3. No gross pericardial effusion Assessment and Plan Assessment Anesthesia Assessment: Chart Reviewed Final Anesthetic Review Family History of Problems with Anesthesia: No History of Problems with Anesthesia: No Documented by User: Yajaira Moyer MD 08/19/23 09:00 [facility] Past Medical History Medical History (Updated 07/22/22 @ 13:01 by Filemon Salazar MD) On beta ana at home History of drug abuse History of alcohol abuse Essential hypertension Gout Dyslipidemia History of throat cancer Depression Anxiety Atrial flutter Chronic anticoagulation PAF (paroxysmal atrial fibrillation) Family History Family History Father HTN (hypertension) Arthritis of knee Mother Arthritis of knee Surgical History Surgical History (Updated 08/19/23 @ 08:23 by Audrey Rangel RN) Hx of colonoscopy with polypectomy Hx of arthroscopic knee surgery History of tonsillectomy H/O laryngectomy Social History Social History Alcohol intake: never Patient Tobacco Use Status: Former Tobacco user Cigarettes Per Day: 10 Use of substances other than those prescribed or required for medical reasons: Yes Substance Use Type Other:: CBD gummies for anxiety Are you DNR?: No Advance Directives: No Advance Directives Information Provided: Yes Meds Allergies Allergy/AdvReac Type Severity Reaction Status Date / Time No Known Allergies Allergy Verified 05/20/22 12:03 [No Known Allergies*] Home Medications ?Medication ?Instructions ?Recorded ?Confirmed ?Last Taken ?Type allopurinol 100 mg tablet 100 mg PO DAILY 10/22/20 08/19/23 10/07/22 History dextroamphetamine-amphetamine 15 1 tab PO BID 10/08/21 08/19/23 02/06/22 05:00 History mg tablet levothyroxine 50 mcg tablet 50 mcg PO QAM 05/20/22 08/19/23 08/19/23 History naltrexone 50 mg tablet 50 mg PO DAILY 07/20/23 08/19/23 Unknown History venlafaxine 37.5 mg 37.5 mg PO DAILY 08/19/23 08/19/23 Unknown History capsule,extended release 24 hr Exam Airway Mallampati Class: II TM Dist: >3cm Neck ROM: Full Other: tracheostomy, sp laryngectomy Assessment and Plan Assessment Anesthesia Assessment: Anesthesia Plan Discussed Final Anesthetic Review NPO: Yes ASA Class: III Final Preanesthetic Review: No Changes in Pt Med Stat, Meds/Allgs Chart Reviewed, Consent Obtained/Reviewed and Anes Risks/Benef Reviewed Patient Risk: Intermediate Procedure Risk: Low Anesthetic Plan Anesthetic Plan: TIVA Disposition: Standard PACU
[2023-08-19 08:23] VITALS: BMI 22.0
[2023-08-19 08:28] VITALS: BP 127/92; PULSE 82; RESP 16; TEMP 36.7; O2SAT 99
--- NOTE | 2023-08-19 08:48 | MHC.SHP ---
Pre-Procedural Eval Section A - 24 Hr Update-Section A only Date of Service: 08/19/23 Section B - Complete if H&P > 30 days Chief Complaint: hx of colon polyps Relevant Family History (Specify if Yes): No Relevant Social History: None Present Medications: see Short Stay Collaborative assessment Medical History: Significant History ( On beta ana at home History of drug abuse History of alcohol abuse Essential hypertension Gout Dyslipidemia History of throat cancer Depression Anxiety Atrial flutter Chronic anticoagulation PAF (paroxysmal atrial fibrillation) History of Previous Operations: Relevant previous surgery/procedure and date(s) (Hx of arthroscopic knee surgery History of tonsillectomy H/O laryngectomy) Allergies: Allergies Allergy/AdvReac Type Severity Reaction Status Date / Time No Known Allergies Allergy Verified 05/20/22 12:03 [No Known Allergies*] ) Review of Systems Sugical H&P ROS: Negative: Constitution, Cardiovascular, Neurological, Psychiatric, Hem-Onc, Allergic/Immunologic, Gastrointestinal, Genitourinary, Musculoskeletal, Integumentary, Endocrine and Eyes/Ears/Nose/Throat and Yes, Specify: Respiratory (tracheostomy ) Exam Surgical H&P Exam: Normal: HEENT, Normal: Heart, Normal: Lungs, Normal: Extremities, Normal: Abdomen, Normal: Skin and Normal: Neurological Plan Diagnosis/Plan: Unchanged I have reviewed the history and physical and performed a pertinent physical examination on my patient. No changes have occurred unless specified. Time Spent With Patient Time: Total time managing care of this patient today ____ minutes.
--- NOTE | 2023-08-19 09:34 | P.OPN-COLO_ITS ---
Colonoscopy Operative Note Operative Note Date of Service: 08/19/23 Narrative: Operative Information Procedure Description: Colonoscopy Indication: hx of polyps Anesthesia: MAC COLONOSCOPY Instrument: Olympus variable stiffness pediatric scope 190L Colonoscopy Monitoring: Vital signs and clinical assessment, continuous EKG monitoring, Pulse oximetry, Carbon Dioxide monitoring and blood pressure monitoring were done throughout the procedure. Colon withdrawal time was 8 minutes. Procedure: The patient was placed in the left lateral decubitis position and pre-procedure medications were administered. After a digital rectal examination of the ano-rectum, the video colonoscope was inserted into the rectum and advanced through the colon to the cecum/TI. The colonoscope was slowly withdrawn in a retrograde panoramic fashion and the colon mucosa was carefully examined including a retroflexed view of the rectum. Findings and interventions are described below. Procedure Difficulty: moderate Findings: Terminal Ileum-not intubated Cecum: 5-7 mm sessile polyp removed with cold forceps Ascending Colon: normal Transverse Colon - 5-7 mm sessile removed with cold snare-not retrieved Descending Colon: 6-7 mm sessile polyp removed with cold forceps Sigmoid Colon: normal Rectum: Retroflexion with small internal hemorrhoids seen, grade I Anorectum - normal Intervention: cold snare, cold forceps Colon preparation: [place] Bowel Preparation Scale Right colon; 1-2 Transverse colon: 2 Left colon; 2 (0 = Unprepared colon segment with mucosa not seen due to solid stool that cannot be cleared. 1 = Portion of mucosa of the colon segment seen, but other areas of the colon segment not well seen due to staining, residual stool and/or opaque liquid. 2 = Minor amount of residual staining, small fragments of stool and/or opaque liquid, but mucosa of colon segment seen well. 3 = Entire mucosa of colon segment seen well with no residual staining, small fragments of stool or opaque liquid) Impression and Post Procedure Diagnosis: colon polyps internal hemorrhoids Plan: High fiber diet leaflet Avoid straining at stool, epsom salts and sitz bath, anusol supps or cream Repeat Colonoscopy in 3 years or earlier if clinically indicated Above findings were reviewed with the patient and relevant handouts were provided if indicated.
[2023-08-19 09:39] VITALS: BP 105/65; PULSE 73; RESP 16; TEMP 36.9; O2SAT 100
[2023-08-19 09:55] VITALS: BP 115/76; PULSE 63; RESP 16; TEMP 36.8; O2SAT 100
== END 2023-08-19 10:19 | disposition home or self-care (01) ==
PROVIDERS: Visit Provider Internal Medicine Gastroenterology
PROC: 0DJD8ZZ Inspection of Lower Intestinal Tract, Via Natural or Artificial Opening Endoscopic (ICD-10-PCS; CPT 45378; principal; 2023-08-19 09:20)
DX: Z12.11 Encounter for screening for malignant neoplasm of colon (principal); D12.0 Benign neoplasm of cecum; D12.4 Benign neoplasm of descending colon; K64.0 First degree hemorrhoids; K92.1 Melena; Z86.010 Personal history of colon polyps; I10 Essential (primary) hypertension; E78.5 Hyperlipidemia, unspecified; I48.0 Paroxysmal atrial fibrillation; F10.11 Alcohol abuse, in remission; F19.11 Other psychoactive substance abuse, in remission; Z90.02 Acquired absence of larynx; Z85.819 Personal history of malignant neoplasm of unspecified site of lip, oral cavity, and pharynx; Z87.891 Personal history of nicotine dependence; Z79.01 Long term (current) use of anticoagulants
CPT/HCPCS: 45385; 45380; 88305; J2704

== ENCOUNTER → 2023-08-19 07:48 | Outpatient (BNV) | payer MEDICARE, SELFPAY | PROVIDERS: Visit Provider Internal Medicine Gastroenterology | DX: Z12.11 Encounter for screening for malignant neoplasm of colon (principal); Z86.010 Personal history of colon polyps; D12.4 Benign neoplasm of descending colon; D12.0 Benign neoplasm of cecum; D12.3 Benign neoplasm of transverse colon; K64.0 First degree hemorrhoids | CPT/HCPCS: 45380; 45385 ==

== ENCOUNTER → 2023-11-03 14:52 | Outpatient (BNVA) | payer MEDICARE, SELFPAY | PROVIDERS: Visit Provider Internal Medicine Cardiovascular Disease ==

== ENCOUNTER → 2023-11-24 07:54 | Outpatient (REF) | payer MEDICARE, SELFPAY ==
--- NOTE | 2023-11-24 07:57 | HM_ITS ---
* Total monitoring time 3 days. * Underlying rhythm is sinus with an average rate of 71/Min. * Atrial fibrillation noted. Overall burden is 27%. Longest episode 9 hours. Fastest 165/Min. * Rare supraventricular ectopy. * Rare ventricular ectopy. One run of 4 beats. * No significant pauses or high-grade AV blocks. * No patient markers or diary events. MTDD
== END ==
LOC: HO.CARD 07:54
PROVIDERS: PCP Pediatrics; Visit Provider Internal Medicine Cardiovascular Disease
DX: I48.0 Paroxysmal atrial fibrillation (principal)
CPT/HCPCS: 93242

== ENCOUNTER → 2023-11-24 07:57 | Outpatient (BNV) | payer MEDICARE, SELFPAY | PROVIDERS: PCP Pediatrics; Visit Provider Internal Medicine | DX: I48.91 Unspecified atrial fibrillation (principal) | CPT/HCPCS: 93244 ==

== ENCOUNTER 2024-02-25 14:05 | Outpatient (AMB) | payer MEDICARE, SELFPAY ==
--- NOTE | 2024-02-25 14:15 | A.OFFVIS_ITS ---
Vital Signs 02/25/24 14:16 Height 5 ft 10 in Weight 189 lb 9.561 oz BMI 27.2 BP 120/70 Blood Pressure Location Lt brachial Position Sitting Pulse 109 H Intake Visit Reasons: f/u after holter dx afib Intake Note: Follow-up with ekg after holter dx afib feeling good Miller Head Assistant Wet Process Required: No Allergies No Known Allergies [No Known Allergies*] Allergy (Verified 05/20/22 12:03) Medication List - Last Reconciled 02/25/24 by Filemon Salazar MD allopurinol 100 mg PO DAILY buspirone 10 mg PO BID levothyroxine 100 mcg PO DAILY metoprolol succinate ER 75 mg (1.5 x 50 mg) PO DAILY 90 days naltrexone 50 mg PO DAILY pantoprazole 20 mg PO DAILY rivaroxaban 20 mg PO DAILY 90 days HPI Comments Details: Sreedhar comes for follow-up. Recent Holter monitor showed frequent occurrence of paroxysmal atrial fibrillation, 27% burden. Rest of the time was in sinus rhythm. He was no new symptoms. Denies any prolonged palpitation irregular heartbeat. He denies any exertional chest pain or shortness of breath. No orthopnea, PND. Has been taking all his medications including his blood thinner with Xarelto. No bleeding issues or neurologic events. He denies any alcohol use. He says cancer is currently in remission. Denies lightheadedness, syncope. [facility] Medical History On beta ana at home History of drug abuse History of alcohol abuse Essential hypertension Gout Dyslipidemia History of throat cancer Depression Anxiety Atrial flutter Chronic anticoagulation PAF (paroxysmal atrial fibrillation) Surgical History Hx of colonoscopy with polypectomy Hx of arthroscopic knee surgery History of tonsillectomy H/O laryngectomy Family History Father HTN (hypertension) Arthritis of knee Mother Arthritis of knee Social History Alcohol intake: never Patient Tobacco Use Status: Former Tobacco user Cigarettes Per Day: 10 Review of Systems Const Denies chills, Denies fatigue, Denies fever(s), Denies frequent falls, Denies weakness, Denies weight gain and Denies weight loss ENT Denies dizziness Card Denies chest pain, Denies leg edema, Denies lightheadedness, Denies palpitation s, Denies dyspnea, Denies dyspnea on exertion, Denies orthopnea and Denies other (loss of consciousness) Resp Denies cough, Denies dyspnea and Denies dyspnea on exertion GI Denies hematochezia and Denies change in stool character Musc Denies abnormal gait, Denies muscle weakness, Denies numbness, Denies radiating pain into limb and Denies tingling Neuro Denies abnormal gait, Denies dizziness, Denies frequent falls, Denies numbness, Denies tingling and Denies weakness Endo Denies fatigue and Denies palpitations Physical Exam Vital Signs: Last Vital Signs Pulse 109 H 02/25/24 14:16 BP 120/70 02/25/24 14:16 BMI result Body Mass Index 27.2 Const General: cooperative, comfortable, alert and awake Nutritional Appearance: underweight Orientation/consciousness: patient oriented x3 Limitations: no limitations Neck Neck: Yes trachea midline, Yes no JVD and Yes other (Tracheostomy tube in place) Resp Effort & Inspection: normal respiratory effort Auscultation: clear to auscultation bilaterally Cardio Jugular venous distension: no JVD Palpation: normal PMI Rate: tachycardic Rhythm: abnormal rhythm irregularly irregular Heart sounds: S1 normal heart sound present, S2 normal heart sound present, no click, no gallops and no murmurs GI Auscultation: normal bowel sounds Skin General skin exam: no rashes or lesions noted Neuro General: patient oriented x3 and no focal motor deficits Extrem General: Yes no clubbing, cyanosis or edema Psych Appearance: grossly normal Office Procedures EKG Details: EKG shows atrial fibrillation rapid ventricular response at 109 beats per minute 69480-[id number], Complete Assessment & Plan Assessment & Plan (1) Atrial fibrillation: Code(s): I48.91 - Unspecified atrial fibrillation Category: Medical Plan: Atrial fibrillation, recurrent without any obvious symptoms although given his age needs to pursue rhythm control approach. Currently without signs or symptoms of heart failure. Currently being on full oral anticoagulation Xarelto and tolerating well. Will start him on Multaq 400 mg b.i.d. to pursue as an antiarrhythmic drug therapy to maintain rhythm. If this fails may consider ablation therapy given his age. Discussed with him. Continue full oral anticoagulation with Xarelto for now. Avoidance of stimulants was discussed which she is doing. Maintain activity level as tolerated. Follow up in the clinic in 10 days for EKG. Thank you for allowing me to partake in his care Medications: New dronedarone (Multaq) must administer with a meal/food 400 mg PO BID 60 tabs 1RF Changed From metoprolol succinate ER Dose increased 75 mg (1.5 x 50 mg) PO DAILY 90 days 135 tabs 3RF To metoprolol succinate ER Dose increased 50 mg PO DAILY 90 tabs 3RF 90 days Coding Level of Care Code Est Pt Level 4 (49825) Complex EM visit Add On G2211 Diagnoses Atrial fibrillation I48.91 CPT Codes EKG - CPT: 81381-[id number], Complete ([id number])
[2024-02-25 14:16] VITALS: BP 120/70; PULSE 109; BMI 27.2
== END 2024-02-25 14:45 | disposition home or self-care (01) ==
PROVIDERS: PCP Pediatrics; Visit Provider Internal Medicine Cardiovascular Disease
DX: I48.91 Unspecified atrial fibrillation (principal)
CPT/HCPCS: 93010; 99214; G2211

== ENCOUNTER → 2024-02-25 14:05 | Outpatient (BNVA) | payer MEDICARE, SELFPAY | PROVIDERS: PCP Pediatrics; Visit Provider Internal Medicine Cardiovascular Disease | DX: I48.91 Unspecified atrial fibrillation (principal) | CPT/HCPCS: 93005; 99212 ==

== ENCOUNTER 2024-03-16 12:24 | Day surgery (SDC) | payer MEDICARE, SELFPAY ==
--- NOTE | 2024-03-15 09:48 | HO.ANESPROP2 ---
Documented by User: Gris Baez NP 03/15/24 09:54 HPI - Anesthesia Eval Consult details Narrative: 48yo M for Cardioversion s/p Colonoscopy 08/2023 s/p EGD/[place] 06/2022. 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 Xarelto Hx polysub - naltrexone daily PMFSH Active Problems Active Problems: All Active Problems Atrial fibrillation (Acute) Pre-op examination (Acute) Dyspepsia (Acute) Preoperative cardiovascular examination (Acute) Sore throat (Acute) Voice hoarseness (Acute) Vomiting (Acute) Diarrhea (Acute) LLQ pain (Acute) Drug use (Acute) ETOH abuse (Acute) Blood in stool (Acute) Essential hypertension (Acute) History of drug abuse (Acute) History of alcohol abuse (Acute) History of throat cancer (Acute) H/O laryngectomy (Acute) PAF (paroxysmal atrial fibrillation) (Acute) Past Medical History Medical History On beta ana at home History of drug abuse History of alcohol abuse Essential hypertension Gout Dyslipidemia History of throat cancer Depression Anxiety Atrial flutter Chronic anticoagulation PAF (paroxysmal atrial fibrillation) Family History Family History Father HTN (hypertension) Arthritis of knee Mother Arthritis of knee Family history of problems with anesthesia: No Surgical History Surgical History Hx of colonoscopy with polypectomy Hx of arthroscopic knee surgery History of tonsillectomy H/O laryngectomy History of Problems with Anesthesia: No Social History Social History Alcohol intake: never Patient Tobacco Use Status: Former Tobacco user Cigarettes Per Day: 10 Meds Allergies Allergy/AdvReac Type Severity Reaction Status Date / Time No Known Allergies Allergy Verified 05/20/22 12:03 [No Known Allergies*] Home Medications ?Medication ?Instructions ?Recorded ?Confirmed ?Last Taken ?Type allopurinol 100 mg tablet 100 mg PO DAILY 10/22/20 03/16/24 03/16/24 History naltrexone 50 mg tablet 50 mg PO DAILY 07/20/23 02/25/24 Unknown History buspirone 10 mg tablet 10 mg PO BID 02/25/24 03/16/24 03/16/24 History levothyroxine 100 mcg tablet 100 mcg PO DAILY 02/25/24 03/16/24 03/16/24 History pantoprazole 20 mg tablet,delayed 20 mg PO DAILY 02/25/24 02/25/24 Unknown History release Assessment and Plan Assessment Anesthesia Assessment: Chart Reviewed Final Anesthetic Review Family History of Problems with Anesthesia: No History of Problems with Anesthesia: No Documented by User: Mamie Foster MD 03/16/24 14:24 [facility] Past Medical History Medical History On beta ana at home History of drug abuse History of alcohol abuse Essential hypertension Gout Dyslipidemia History of throat cancer Depression Anxiety Atrial flutter Chronic anticoagulation PAF (paroxysmal atrial fibrillation) Family History Family History Father HTN (hypertension) Arthritis of knee Mother Arthritis of knee Family history of problems with anesthesia: No Surgical History Surgical History Hx of colonoscopy with polypectomy Hx of arthroscopic knee surgery History of tonsillectomy H/O laryngectomy History of Problems with Anesthesia: No Social History Social History Alcohol intake: never Patient Tobacco Use Status: Former Tobacco user Cigarettes Per Day: 10 Meds Allergies Allergy/AdvReac Type Severity Reaction Status Date / Time No Known Allergies Allergy Verified 05/20/22 12:03 [No Known Allergies*] Home Medications ?Medication ?Instructions ?Recorded ?Confirmed ?Last Taken ?Type allopurinol 100 mg tablet 100 mg PO DAILY 10/22/20 03/16/24 03/16/24 History naltrexone 50 mg tablet 50 mg PO DAILY 07/20/23 02/25/24 Unknown History buspirone 10 mg tablet 10 mg PO BID 02/25/24 03/16/24 03/16/24 History levothyroxine 100 mcg tablet 100 mcg PO DAILY 02/25/24 03/16/24 03/16/24 History pantoprazole 20 mg tablet,delayed 20 mg PO DAILY 02/25/24 02/25/24 Unknown History release Exam Height,Weight and Vital Signs: Height 5 ft 10 in Weight 84.5 kg Vital Signs Temp Pulse Resp BP Pulse Ox O2 Del Method 96.8 F 70 16 111/86 100 Room Air 03/16/24 12:43 03/16/24 12:43 03/16/24 12:43 03/16/24 12:43 03/16/24 12:43 03/16/24 12:43 Airway Loose/Missing/Broken Teeth: No Heart: Irregularly irregular Lungs: CTAB Assessment and Plan Assessment Anesthesia Assessment: Anesthesia Plan Discussed and Chart Reviewed Final Anesthetic Review Family History of Problems with Anesthesia: No History of Problems with Anesthesia: No NPO: Yes ASA Class: III Final Preanesthetic Review: No Changes in Pt Med Stat, Meds/Allgs Chart Reviewed, Consent Obtained/Reviewed and Anes Risks/Benef Reviewed Patient Risk: Intermediate Procedure Risk: Intermediate Assessment/Block/Sedation in SS: Assess/Block/Sedation-SS Anesthetic Plan Anesthetic Plan: GA Disposition: Standard PACU
[2024-03-16 12:35] VITALS: BMI 26.7
[2024-03-16 12:43] VITALS: BP 111/86; PULSE 70; RESP 16; TEMP 36; O2SAT 100
--- NOTE | 2024-03-16 12:53 | MHC.SHP ---
Pre-Procedural Eval Section A - 24 Hr Update-Section A only Date of Service: 03/16/24 The patient is an INPATIENT: No Changes since office visit: Yes Changes in Medication and Yes Patient answered all questions; No Cold of Flu in the past 2 weeks and No New Medical Problems The patient has been examined within 24 hours of the surgical procedure. The History & Physical has been completed within 30 days and I have reviewed it.: Yes Section B - Complete if H&P > 30 days Chief Complaint: Paroxysmal atrial fibrillation Allergies: Allergies Allergy/AdvReac Type Severity Reaction Status Date / Time No Known Allergies Allergy Verified 05/20/22 12:03 [No Known Allergies*] Plan I have reviewed the history and physical and performed a pertinent physical examination on my patient. No changes have occurred unless specified. Time Spent With Patient Time: Total time managing care of this patient today ____ minutes.
[2024-03-16] MEDS: Lactated Ringers 1,000 ML 100 ML IVCONT (13:09)
--- OUTSIDE RECORDS SUMMARY | 2024-03-16 13:48 | XMS_ITS | Encounter Summary ---
Author Organization [facility] Address [address] [place] [address] Care Team Providers Care Peanut Sheller Name Role Phone Annetta Arreaga MD Primary Care Provider [phone] Reason for Referral * Imaging (Routine) - Closed Specialty Diagnoses / Procedures Referred By Contac t Referred To Contact Radiology Diagnoses Carcinoma larynx (CMS/HCC) Procedures IR Remove Tunneled CVAD w Subq Port or Pump Ubaldo Tracey MD [address] [place] [id number] [address] Referral ID Status Reason Start Date Expiration Date Visits Re quested Visits Authorized [id number] Closed 01/19/2024 01/18/2025 1 1 Reason for Visit * Imaging (Routine) - Closed Specialty Diagnoses / Procedures Referred By Contac t Referred To Contact Radiology Diagnoses Carcinoma larynx (CMS/HCC) Procedures IR Remove Tunneled CVAD w Subq Port or Pump Ubaldo Tracey MD [address] [place] [phone] [address] Referral ID Status Reason Start Date Expiration Date Visits Re quested Visits Authorized [id number] Closed 01/19/2024 01/18/2025 1 1 Encounter Details Date Type Department Care Team (Latest Contact Info) Description 02/15/2024 10:00 AM EST - 02/15/2024 11:59 PM EST Hospital Encounter [facility] Interventional Radiology [address] [place] [id number] Carcinoma larynx (CMS/HCC) Discharge Disposition: Home or Self Care Social History Tobacco Use Types Packs/Day Years Used Date Smoking Tobacco: Former Cigarettes Q uit: 06/10/2020 Smokeless Tobacco: Never Alcohol Use Standard Drinks/Week Comments Not Currently 0 (1 standard drink = 0.6 oz pur e alcohol) Sex and Gender Information Value Date Recorded Sex Assigned at Male 02/12/2024 4:21 PM EST Gender Identity Male 02/12/2024 4:21 PM EST Sexual Orientation Straight 02/12/2024 4: 21 PM EST Job Start Date Occupation Industry Not on file Not on file Not on file documented as of this encounter Medications at Time of Discharge Medication Sig Dispensed Refills Start Date End Date allopurinoL (ZYLOPRIM) 100 mg tablet Take 1 tablet (100 mg total) by mouth 1 (one) time each day in the morning. busPIRone (BUSPAR) 15 mg tablet Take 1 tablet (15 mg total) by mouth 2 times daily. 12/10/2023 12/09/2024 doxepin (SINEquan) 25 mg capsule Take 1 capsule (25 mg total) by mouth. at bedtime 12/31/2023 metoprolol succinate (TOPROL-XL) 50 mg 24 hr tablet Take 1 tablet (50 mg total) by mouth daily. 10/28/2023 naltrexone (DEPADE) 50 mg tablet Take 1 tablet (50 mg total) by mouth 1 (one) time each day in the morning. pantoprazole (PROTONIX) 20 mg EC tablet TAKE 1 TABLET (20 MG) BY MOUTH BEFORE BREAKFAST DO NOT CRUSH, CHEW, OR SPLIT venlafaxine XR (EFFEXOR-XR) 75 mg 24 hr capsule TAKE 1 CAPSULE (75 MG) BY MOUTH ONCE PER DAY. DO NOT CRUSH OR CHEW. Xarelto 20 mg tablet Take 1 tablet (20 mg total) by mouth 1 (one) time each day. 10/28/2023 levothyroxine (SYNTHROID, LEVOTHROID) 100 mcg tablet Take 1 tablet (100 mcg total) by mouth 1 (one) time each day before breakfast. 10/01/2022 03/03/2024 documented as of this encounter Discharge Disposition Disposition Code Departure Means Destination Home or Self Care documented in this encounter Plan of Treatment Upcoming Encounters Date Type Department Care Team (Late st Contact Info) Description 07/19/2024 10:30 AM EDT Office Visit [facility] Hematology Oncology [address] [place] [phone] Ubaldo Tracey MD [address] [place] [address] documented as of this encounter Procedures Procedure Name Priority Date/Time Associated Diagnosis Comments IR REMOVE TUNNELED CVAD W SUBQ PORT OR PUMP Routine 02/15/2024 11:41 AM EST Carcinoma larynx (CMS/HCC) documented in this encounter Results * IR Remove Tunneled CVAD w Subq Port or Pump (02/15/2024 11:41 AM EST) Anatomical Region Laterality Modality N/A Interventional R adiology 02/15/2024 4:28 PM EST Narrative 02/15/2024 4:29 PM EST INDICATION: Port-A-Cath removal Technique: Chest wall around the pre-existing Port-A-Cath was draped and prepped using maximal sterile barrier. 2% buffered lidocaine was used as local anesthetic. Approximately 3 cm incision was performed along the cephalad aspect of the Port-A-Cath. The Port-A-Cath was dissected from the surrounding fibrotic reaction. The Port-A-Cath was removed completely and the pocket was closed with deep 3-0 Vicryl sutures. Dermabond application was applied followed by a dressing. Total patient dose (air kerma): 1 mGy CONCLUSION: Removal of ??Port-A-Cath. -------- FINAL REPORT -------- Dictated By: Shira Gold Dictated Date: 02/15/2024 16:28 ET Assigned Physician: Shira Gold Reviewed and Electronically Signed By: Shira Gold Signed Date: 02/15/2024 16:29 ET Workstation ID: [id number] Transcribed By: Self Edit Transcribed Date: 02/15/2024 16:28 ET Procedure Note Shira Gold MD - 02/15/2024 INDICATION: Port-A-Cath removal Technique: Chest wall around the pre-existing Port-A-Cath was draped andprepped using maximal sterile barrier. 2% buffered lidocaine was used aslocal anesthetic. Approximately 3 cm incision was performed along thecephalad aspect of the Port-A-Cath. The Port-A-Cath was dissected from thesurrounding fibrotic reaction. The Port-A-Cath was removed completely andthe pocket was closed with deep 3-0 Vicryl sutures. Dermabond applicationwas applied followed by a dressing. Total patient dose (air kerma): 1 mGy CONCLUSION: Removal of Port-A-Cath. -------- FINAL REPORT -------- Dictated By: Shira Gold Dictated Date: 02/15/2024 16:28 ET Assigned Physician: Shira Gold Reviewed and Electronically Signed By: Shira Gold Signed Date: 02/15/2024 16:29 ET Workstation ID: [id number] Transcribed By: Self Edit Transcribed Date: 02/15/2024 16:28 ET [facility] IR PROC EDURES documented in this encounter Visit Diagnoses Diagnosis Carcinoma larynx (CMS/HCC) Malignant neoplasm of larynx, unspecified site documented in this encounter Care Teams Peanut Sheller Relationship Specialty Start Date End Date Annetta Arreaga MD [address] [place] [phone] PCP - General Pediatrics 06/20/20 documented as of this encounter
--- OUTSIDE RECORDS SUMMARY | 2024-03-16 13:48 | XMS_ITS | Encounter Summary ---
Author Organization [employer] Address [address] [facility] [address] [place] [address] Care Team Providers Care Client Engagement Manager Name Role Phone Annetta Arreaga MD Primary Care Provider [phone] Reason for Visit * Reason Comments Med Refill Encounter Details Date Type Department Care Team ([facility] st Contact Info) Description 03/01/2024 Refill [facility] MED & PEDS [address], [place] [phone] Annetta Arreaga MD [address] [place] [address] Social History Tobacco Use Types Packs/Day Years Used Date Smoking Tobacco: Never Passive Smoke Exposure: Never Smokeless Tobacco: Never Depression Answer Date Recorded Patient Health Questionnaire-9 Score 18 07/28/2023 Patient Health Questionnaire-9 Score 18 07/28/2023 Last PHQ-9: Questionnaire Data Not on file 0 07/28/2023 Housing Stability Answer Date Recorded What is your housing situation today? I have mookie toussaint 08/19/[address] you li ve. Do you have problems with any of the following? None of the above 08/19/2023 Food Insecurity Answer Date Recorded Within the past 12 months, y ou worried that your food would run out before you got money to buy more: Never True 08/19/2023 Within the past 12 months,th e food you bought just didn't last and you didn't have enough money to get more: Never True 11/2023 Transportation Answer Date Recorded In the past 12 months, has l ack of transportation kept you from medical appts, meetings, work or from getting things needed for daily living? No 08/19/2023 Utilities Answer Date Recorded In the past 12 months, has t he electric, gas, oil or water company threatened to shut off services in your home? No 08/19/2023 Depression Answer Date Recorded Patient Health Questionnaire-2 Score 6 07/28/2023 Internet Access Answer Date Recorded Internet Access Q1 Yes 10/12/2023 Internet Access Q2 Not on file 10/12/2023 Sex and Gender Information Value Date Recorded Sex Assigned at Male 12/09/2021 10:18 AM EDT Legal Sex Male 10:18 AM EDT Gender Identity Male 12/09/2021 10:18 AM EDT Sexual Orientation Straight 12/09/2021 10 :18 AM EDT documented as of this encounter Plan of Treatment Upcoming Encounters Date Type Department Care Team ([facility] st Contact Info) Description 05/03/2024 11:30 AM EDT Office Visit [facility] MED & PEDS [address] [place] [address] Annetta Arreaga MD [address] [place] [address] documented as of this encounter Visit Diagnoses Not on filedocumented in this encounter Additional Health Concerns Assessment Noted Time PHQ-9 Depression Total Score: 18 07/27/ 024 11:38 AM EDT documented as of this encounter Care Teams Client Engagement Manager Relationship Specialty Start Date End Date Annetta Arreaga MD [address] [place] [address] PCP - General Family Medicine 02/09/18 documented as of this encounter
--- OUTSIDE RECORDS SUMMARY | 2024-03-16 13:48 | XMS_ITS | Clinical Summary ---
Author Organization [employer] Address [address] [facility] [address] [facility] [address] [facility] [address] [place] [address] Care Team Providers Care Lottery Sales Clerk Name Role Phone Annetta Arreaga MD Primary Care Provider [phone] Allergies No known active allergies Medications * This document contains information received from the source organization and may not represent a complete record from that organization. levothyroxine (Synthroid, Levoxyl) 100 MCG tablet Take 1 tablet by mouth in the morning. 10/02/19 23 Active venlafaxine XR (Effexor XR) 75 MG 24 hr capsule Take 1 capsule (75 mg) by mouth Once per day. Do not crush or chew. 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 10/28/19 24 Active Multaq 400 MG tablet 02/24/19 25 Active topiramate (Topamax) 50 MG tablet Take 1 tablet (50 mg) by mouth at bedtime. 90 tablet 3 03/01/19 25 Active busPIRone (Buspar) 30 MG tablet Take 1 tablet (30 mg) by mouth 2 times daily. 60 tablet 11 03/01/19 25 026 Active pantoprazole (ProtoNix) 20 MG EC tablet TAKE 1 TABLET (20 MG) BY MOUTH BEFORE BREAKFAST DO NOT CRUSH, CHEW, OR SPLIT 90 tablet 3 03/03/19 25 026 Active Colchicine 0.6 MG capsule TAKE 1 CAPSULE BY MOUTH THREE TIMES A DAY ON THE FIRST DAY THEN 0.6MG TWICE A DAY UNTIL GOUT FLARE RESOLVES 15 capsule 07/12/19 23 025 Discontinued(Th erapy completed) calcium carbonate (Tums) 500 MG chewable tablet Chew 1 tablet 3 times daily. 025 Discontinued( erapy completed) bacitracin 500 UNIT/GM ointment Apply topically 2 times daily. to affected area 10/17/19 025 Discontinued( erapy completed) pantoprazole (ProtoNix) 20 MG EC tablet Take 1 tablet (20 mg) by mouth before breakfast. Do not crush, chew, or split. 30 tablet 11 07/28/19 24 025 Discontinued busPIRone (Buspar) 15 MG tablet Take 1 tablet (15 mg) by mouth 2 times daily. 60 tablet 11 12/10/19 24 025 Discontinued(In effective) doxepin (SINEquan) 25 MG capsule Take 1 capsule (25 mg) by mouth at bedtime. 30 capsule 3 12/31/19 24 025 Discontinued( erapy completed) Active Problems Problem Noted Date Diagnosed Date Tracheostomy in place 07/28/2023 Severe episode of recurrent major depressive disorder, without psychotic features 07/28/2023 Assessment & Plan (08/28/2023 11:00 AM EDT): PLAN: (check all that apply) Behavioral Health Integration Plan Patient Self Plan Patient to utilize skills provided in intervention , [facility] as [facility], Comply with medication , Patient to reach out to [facility] as needed, and self-referred to [facility] in [place] for open access clinic (M-F 10 am to 12 pm) for intake process. Assessment & Plan (07/31/2023 3:52 PM EDT): During IBH Consult Slick presenting with depressed mood, loss of interests/pleasure , changes in sleep difficulty falling asleep, change in appetite or weight reduce appetite, psychomotor retardation, trouble concentrating, thoughts of worthlessness or guilt, fatigue/loss of energy, inappropriate guilt , hopelessness, worthlessness , difficulty concentrating, passive suicidal ideation w/o plan and excessive worry/anxiety, difficulty controlling worry, restless/keyed up/On edge, easily fatigued, irritability, and sleep disturbance difficulty falling asleep; for a period of 0-6 mo, for all symptoms in the context of losing MH services with psychiatrist. Slick lost psych care four months ago and hasn't been taking his medication because his psych provider retired the field. Since then, symptoms have been worsening. Slick is losing weight and has a tracheostomy in place. Slick was accompanied by his mom, she is considered as main protective factor and strength. Sreedhar reports being very depressed but willing to re-engaged in MH services. Sreedhar was engaged with open-ended questions and was invited to explore triggers associated with present symptoms. PLAN: (check all that apply) Continue with current services (defined as services in the past 12 months) Behavioral Health Integration Plan Internal Follow up with [facility] Patient Self Plan Patient to utilize skills provided in intervention , Patient to reach out to [facility] team as needed, Comply with medication , Patient to engage in OP therapy , and Patient to reach out to [facility] as needed. Pt received a call from [facility] to start services for OP individual therapy and psychiatry. clinician will see patient during his next medical appt to do follow-up on sxs and intervention. Paroxysmal atrial fibrillation 07/28/2023 Chronic gouty arthritis 02/07/2022 Squamous cell carcinoma of larynx 02/07/2022 Anxiety disorder, unspecified 06/22/2020 Generalized anxiety disorder 06/22/2020 Assessment & Plan (08/28/2023 10:59 AM EDT): PLAN: (check all that apply) Behavioral Health Integration Plan Patient Self Plan Patient to utilize skills provided in intervention , Patient to reach out to [facility] team as needed, Comply with medication , Patient to reach out to [facility] as needed, and self-referred to [facility] in [place] for open access clinic (M-F 10 am to 12 pm) for intake process. Assessment & Plan (07/31/2023 3:52 PM EDT): During IBH Consult Slick presenting with depressed mood, loss of interests/pleasure , changes in sleep difficulty falling asleep, change in appetite or weight reduce appetite, psychomotor retardation, trouble concentrating, thoughts of worthlessness or guilt, fatigue/loss of energy, inappropriate guilt , hopelessness, worthlessness , difficulty concentrating, passive suicidal ideation w/o plan and excessive worry/anxiety, difficulty controlling worry, restless/keyed up/On edge, easily fatigued, irritability, and sleep disturbance difficulty falling asleep; for a period of 0-6 mo, for all symptoms in the context of losing MH services with psychiatrist. Slick lost psych care four months ago and hasn't been taking his medication because his psych provider retired the field. Since then, symptoms have been worsening. Slick is losing weight and has a tracheostomy in place. Slick was accompanied by his mom, she is considered as main protective factor and strength. Sreedhar reports being very depressed but willing to re-engaged in MH services. Sreedhar was engaged with open-ended questions and was invited to explore triggers associated with present symptoms. PLAN: (check all that apply) Continue with current services (defined as services in the past 12 months) Behavioral Health Integration Plan Internal Follow up with [facility] Patient Self Plan Patient to utilize skills provided in intervention , Patient to reach out to [facility] team as needed, Comply with medication , Patient to engage in OP therapy , and Patient to reach out to [facility] as needed. Pt received a call from [email or web address] to start services for OP individual therapy and psychiatry. clinician will see patient during his next medical appt to do follow-up on sxs and intervention. 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, left knee 06/22/2020 Alcohol abuse 12/01/2011 Dyslipidemia 12/01/2011 Elevated liver enzymes 12/01/2011 Depressive disorder 07/17/2011 Encounters Date Type Department Care Team Description 03/03/2024 Refill [facility] MED & PEDS [address] [facility] [place] [address] Annetta Arreaga MD 03/01/2024 11:30 AM EST Office Visit [facility] MED & PEDS [address] [place] [address] Annetta Arreaga MD Depressive disorder (Primary Dx); Squamous cell carcinoma of larynx (CMS/HCC); Alcohol abuse; Paroxysmal atrial fibrillation (CMS/HCC) 03/01/2024 Refill [facility] MED & PEDS [address] [place] [address] Annetta Arreaga MD 03/01/2024 Travel 02/29/2024 Travel 02/25/2024 Telephone [facility] MED & PEDS [address] [place] [address] Annetta Arreaga MD Chart Prep 12/31/2023 4:00 PM EST Office Visit [facility] MED & PEDS [address] [place] [address] Annetta Arreaga MD Squamous cell carcinoma of larynx (CMS/HCC) (Primary Dx); Severe episode of recurrent major depressive disorder, without psychotic features (CMS/HCC); Alcohol abuse 12/31/2023 Travel 12/31/2023 Telephone [facility] MEDICINE [address] [place] [address] Annetta Arreaga MD Medication Question 12/28/2023 Orders Only [facility] MED & PEDS [address] [place] [address] Annetta Arreaga MD 12/22/2023 Telephone [facility] MEDICINE [address] [place] [address] Annetta Arreaga MD Medication Question from Last 3 Months Immunizations Name Administration Dates Next Due Influenza injectable quadriv alent IIV4 with preservative 11/04/2016 Influenza injectable quadriv alent preservative free 11/06/2022,01/10/2021,11/03/2018 Influenza, Split (incl. chyna fied surface antigen) 10/22/2011 Influenza, seasonal, injecta ble, preservative free 10/28/2023 Pfizer Covid-19 Vaccine 12+ 02/20/2023 TD (adult), 2 Lf tetanus tox oid, preservative free, adsorbed 11/04/2016 Social History Tobacco Use Types Packs/Day Years Used Date Smoking Tobacco: Never Passive Smoke Exposure: Never Smokeless Tobacco: Never Tobacco Cessation:Counseling Given: Not Answered Depression Answer Date Recorded Patient Health Questionnaire-9 Score 18 07/28/2023 Patient Health Questionnaire-9 Score 18 07/28/2023 Last PHQ-9: Questionnaire Data Not on file 0 07/28/2023 Housing Stability Answer Date Recorded What is your housing situation today? I have mookiedaniel toussaint 08/19/[address] you [...] Orientation Straight 12/09/2021 10 :18 AM EDT Last Filed Vital Signs Vital Sign Reading Time Taken Comments Blood Pressure 100/70 03/01/2024 11:42 AM EST Pulse 80 03/01/2024 11:42 AM EST Temperature 36.3 ??C (97.3 ??F) 03/01/2024 11:[address] Respiratory Rate 20 03/01/2024 11:42 AM EST Oxygen Saturation 98% 12/31/2023 4:12 PM EST Inhaled Oxygen Concentration - - Weight 86.6 kg (191 lb) 03/01/2024 11:42 AM EST Height 185.4 cm (6' 1 ) 03/01/2024 11:42 AM EST Body Mass Index 25.2 03/01/2024 11:42 AM EST Plan of Treatment Upcoming Encounters Date Type Department Care Team ([facility] st Contact Info) Description 05/03/2024 11:30 AM EDT Office Visit [facility] MED & PEDS [address] [place] [address] Annetta Arreaga MD [address] [place] [address] Health Maintenance Due Date Last Done Comments CT Colonography 1977 FIT DNA/Cologuard 1977 FIT 1977 FOBT 1977 HIV Screening 1977 Sigmoidoscopy 1977 Alcohol/Substance Use Screening 1989 Family Planning (PISQ) 1992 Hepatitis A Vaccines (1 of 2 - Risk 2-dose series) 1996 Hepatitis B Vaccines (1 of 3 - 19+ 3-dose series) 1996 DTaP/Tdap/Td Vaccines (1 - Tdap) 11/05/2016 11/04/2016 COVID-19 Vaccine ( - 2023- season) 2023 02/20/2023, 12/30/2021, 01/23/2021, Additional history exists Depression Monitoring (PHQ-9) 01/27/2024 07/28/2023, 07/28/2023 Depression Screening 07/27/2024 07/28/2023, 07/28/19 24 SDOH Screening 08/18/2024 08/19/2023 Tobacco Screening 12/30/2024 12/31/2023 Zoster Vaccines (1 of 2) 2027 Colonoscopy 06/27/2027 Colorectal Cancer Screening 06/27/2027 Lipid Panel 07/25/2027 07/24/2022 RSV Patients and Patients Aged 60 years or older (1 - 1-dose 75+ series) 2052 Hepatitis C Screening Completed 12/04/2022 Influenza Vaccine Completed 10/28/2023, , 01/10/2021, Additional history exists HIB Vaccines Aged Out No longer eligi ble based on patient's age to complete this topic HPV Vaccines Aged Out No longer eligi ble based on patient's age to complete this topic IPV Vaccines Aged Out No longer eligi ble based on patient's age to complete this topic Meningococcal Vaccine Aged Out No jaylon ayanna eligible based on patient's age to complete this topic Pneumococcal Vaccine: Pediatrics (0 to 5 Years) and At-Risk Patients (6 to 49) Years) Aged Out No longer eligible based on patient's age to complete this topic RSV under 20 months Aged Out No longe r eligible based on patient's age to complete this topic Rotavirus Vaccines Aged Out No longer eligible based on patient's age to complete this topic Procedures Procedure Name Priority Date/Time Associated Diagnosis Comments HEPATITIS PANEL, GENERAL Routine 12/04/2022 3:41 PM EDT Elevated liver enzymes LIPID PANEL, STANDARD Routine 07/24/2022 8:39 AM EDT 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 ~Hepatitis B Surface Antibody NONREACTIVE Nonreactive [facility] Comment:Nonreactive: < 8.00 mIU/mL Hepatitis B Core Antibody Nonreactive Nonreactive [facility] Hepatitis C Antibody Nonreactive Nonreactive [facility] Comment:Antibodies to HCV no t detected; does not exclude early acuteHCV infection. Hepatitis B Surface Ag Negative Negative [facility] Blood 12/04/2022 3:41 PM EDT 12/04/2022 5:39 PM EDT us Annetta Arreaga MD LAB BLOOD ORDERABLES Final Re sult [facility] [address] [place], [place] [phone] * (ABNORMAL) Lipid Panel, Standard (07/24/2022 8:39 AM EDT) Cholesterol, Total 379(H) <200 mg/dL [facility] HDL Cholesterol 54 > OR = 40 mg/dL [facility] Triglycerides 127 <150 mg/dL [facility] [place] [facility] LDL Cholesterol 298(H) mg/dL (calc) [facility] [place] [facility] Comment: LDL-C levels > or = 190 mg/dL may indicate familial hypercholesterolemia (FH). Clinical assessment and measurement of blood lipid levels should be considered for all first degree relatives of patients with an FH diagnosis. LDL Cholesterol (LDL-C) levels > or = 300 mg/dL may indicate homozygous familial hypercholesterolemia (HoFH). Untreated, these extremely high LDL-C levels can result in premature CV events and mortality. Patients should be identified early and provided appropriate interventions to reduce the cumulative LDL-C burden from . For questions about testing for familial hypercholesterolemia, please call [employer] [facility] at [email or web address]. Fabian T, et al. J National Lipid Association Recommendations for Patient-Centered Management of Dyslipidemia: Part 1 Journal of Clinical Lipidology 2015;9(2), 129-169. Adrianne Celaya. et al. (2014). Homozygous familial hypercholesterolaemia: new insights and guidance for clinicians to improve detection and clinical management. Heart Journal, 35(32), 7538-9409. Reference range: <100 Desirable range <100 mg/dL for primary prevention; ?? <70 mg/dL for patients with CHD or diabetic patients with > or = 2 CHD risk factors. LDL-C is now calculated using the Jocelyn calculation, which is a validated novel method providing better accuracy than the Friedewald equation in the estimation of LDL-C. Taran STEELE et al. WINSTON. 2013;310(19): 3296-7304 (http://education.[employer]StyleSaint/faq/SYU976) Chol/HDLC Ratio 7.0(H) <5.0 (calc) [employer] Non-HDL Cholesterol 325(H) <130 mg/dL (calc) [facility] Comment: Non-HDL level > or = 220 is very high and may indicate genetic familial hypercholesterolemia (FH). Clinical assessment and measurement of blood lipid levels should be considered for all first-degree relatives of patients with an FH diagnosis. For patients with diabetes plus 1 major ASCVD risk factor, treating to a non-HDL-C goal of <100 mg/dL (LDL-C of <70 mg/dL) is considered a therapeutic option. Blood Venous blood specimen / Unknown 07/24/2022 8:39 AM EDT 07/24/2022 8:40 AM EDT Narrative [facility] - 07/25/2022 6:03 AM EDT FASTING:YES FASTING: YES us Annetta Arreaga MD LAB BLOOD ORDERABLES Final Re sult [facility] [address], [place] [address] [employer] [address] [place] [address] from Last 3 Months or Most Recently Relevant to [place] [address] [place] [address] MEDICARE [facility] MEDEX CARE Care Teams Lottery Sales Clerk Relationship Specialty Start Date End Date Annetta Arreaga MD [address] [place] [address] PCP - General Family Medicine 02/09/18
--- OUTSIDE RECORDS SUMMARY | 2024-03-16 13:48 | XMS_ITS | Encounter Summary ---
Author Organization [employer] Address [address] [facility] 7 [place] [address] Care Team Providers Care Proof Machine Operator Supervisor Name Role Phone Annetta Arreaga MD Primary Care Provider [phone] Reason for Visit * Reason Onset Date Comments Call Back Request 07/10/2023 Encounter Details Date Type Department Care Team ([facility] st Contact Info) Description 07/10/2023 Telephone [facility] MEDICINE [address] [place] [address] Annetta Arreaga MD [address] [place], [place] [phone] Call Back Request Social History Tobacco Use Types Packs/Day Years Used Date Smoking Tobacco: Never Passive Smoke Exposure: Never Smokeless Tobacco: Never Depression Answer Date Recorded Patient Health Questionnaire-9 Score 3 11/06/2022 Depression Answer Date Recorded Patient Health Questionnaire-2 Score 1 11/06/2022 Sex and Gender Information Value Date Recorded Sex Assigned at Male 12/09/2021 10:18 AM EDT Legal Sex Male 10:18 AM EDT Gender Identity Male 12/09/2021 10:18 AM EDT Sexual Orientation Straight 12/09/2021 10 :18 AM EDT documented as of this encounter Miscellaneous Notes * Telephone Encounter - Wing Elida RN - 07/13/2023 12:11 PM EDT Just as a heads up. Tc from pt's mother, reported that pt is very depressed recently and has a lot of anxiety. Mother reported pt stopped taking fluoxetine for the past three months due to the pt expressing to mother that it made him feel worse. Pt did not elaborate on what that meant. Gave appt with PCP for 07/27 at 11:15 am. Advised to call back if pt's symptoms worsened and advised to go to ED if needed. Mother verbalized understanding and agreement with plan. * Telephone Encounter - Wing Elida RN - 07/13/2023 10:09 AM EDT Tc to pt's mother to inquired about message below, unable to reach pt's mother. Left message for parent to call back. * Telephone Encounter - Yvon Horvath - 07/10/2023 1:38 PM EDT Tc from the patients mother requesting to speak with PCP states the patient is experiencing depression mom refused triage would just like to speak with provider documented in this encounter Plan of Treatment Upcoming Encounters Date Type Department Care Team (Late st Contact Info) Description 05/03/2024 11:30 AM EDT Office Visit [facility] MED & PEDS [address] [place] [address] Annetta Arreaga MD [address] [place] [address] documented as of this encounter Visit Diagnoses Not on filedocumented in this encounter Additional Health Concerns Assessment Noted Time PHQ-9 Depression Total Score: 3 11/07/19 23 1:47 PM EDT documented as of this encounter Care Teams Proof Machine Operator Supervisor Relationship Specialty Start Date End Date Annetta Arreaga MD [address] [place] [address] PCP - General Family Medicine 02/09/18 documented as of this encounter
--- OUTSIDE RECORDS SUMMARY | 2024-03-16 13:48 | XMS_ITS | Encounter Summary ---
Author Organization [employer] Address [address] [facility] [address] [place] [address] Care Team Providers Care Rug Hooker Hand Name Role Phone Annetta Arreaga MD Primary Care Provider [phone] Reason for Visit * Reason Comments Med Refill Encounter Details Date Type Department Care Team ([facility] st Contact Info) Description 03/03/2024 Refill [facility] CHC MED & PEDS [address] [place], [place] [phone] Annetta Arreaga MD [address] [place] [address] Social History Tobacco Use Types Packs/Day Years [...] Upcoming Encounters Date Type Department Care Team ([facility] st Contact Info) Description 05/03/2024 11:30 AM EDT Office Visit [facility] & PEDS [address] [place] [address] Annetta Arreaga MD [address] [place] [address] documented as of this encounter Visit Diagnoses Not on filedocumented in this encounter Additional Health Concerns Assessment Noted Time PHQ-9 Depression Total Score: 18 07/27/ 024 11:38 AM EDT documented as of this encounter Care Teams Rug Hooker Hand Relationship Specialty Start Date End Date Annetta Arreaga MD [address] [place] [address] PCP - General Family Medicine 02/09/18 documented as of this encounter
--- OUTSIDE RECORDS SUMMARY | 2024-03-16 13:48 | XMS_ITS | Clinical Summary ---
Author Organization [facility] Address [address] [place] [address] Phone Care Team Providers Care Market Editor Name Role Phone Annetta Arreaga MD Primary Care Provider [phone] Allergies No known active allergies Medications Medication Sig Dispensed Refills Start Date End Date Status allopurinoL (ZYLOPRIM) 100 mg tablet Take 1 tablet (100 mg total) by mouth 1 (one) time each day in the morning. Active busPIRone (BUSPAR) 15 mg tablet Take 1 tablet (15 mg total) by mouth 2 times daily. 12/10/2023 12/09/2024 Active doxepin (SINEquan) 25 mg capsule Take 1 capsule (25 mg total) by mouth. at bedtime 12/31/2023 Active metoprolol succinate (TOPROL-XL) 50 mg 24 hr tablet Take 1 tablet (50 mg total) by mouth daily. 10/28/2023 Active naltrexone (DEPADE) 50 mg tablet Take 1 tablet (50 mg total) by mouth 1 (one) time each day in the morning. Active pantoprazole (PROTONIX) 20 mg EC tablet TAKE 1 TABLET (20 MG) BY MOUTH BEFORE BREAKFAST DO NOT CRUSH, CHEW, OR SPLIT Active Xarelto 20 mg tablet Take 1 tablet (20 mg total) by mouth 1 (one) time each day. 10/28/2023 Active venlafaxine XR (EFFEXOR-XR) 75 mg 24 hr capsule TAKE 1 CAPSULE (75 MG) BY MOUTH ONCE PER DAY. DO NOT CRUSH OR CHEW. Active levothyroxine (SYNTHROID, LEVOTHROID) 100 mcg tablet TAKE 1 TABLET BY MOUTH EVERY DAY IN THE MORNING ON AN EMPTY STOMACH 90 tablet 1 03/03/2024 Active levothyroxine (SYNTHROID, LEVOTHROID) 100 mcg tablet Take 1 tablet (100 mcg total) by mouth 1 (one) time each day before breakfast. 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 team as needed, Comply with medication , Patient to reach out to [facility] as needed, and self-referred to [facility] in [facility] open access clinic (M-F 10 am to 12 pm) for intake process. Paroxysmal atrial fibrillation 06/22/2020 Alcohol abuse 12/01/2011 Dyslipidemia 12/01/2011 Elevated liver enzymes 12/01/2011 Depressive disorder 07/17/2011 Encounters Date Type Department Care Team Description 02/15/2024 10:00 AM EST - 02/15/2024 11:59 PM EST Hospital Encounter [facility] Interventional Radiology [address] [place] [phone] Carcinoma larynx (CMS/HCC) Discharge Disposition: Home or Self Care 01/19/2024 11:00 AM EST Office Visit [facility] Hematology Oncology [address] [place] [phone] Ubaldo Jin MD Carcinoma larynx (CMS/HCC) (Primary Dx) 12/15/2023 10:28 AM EST - 12/15/2023 11:59 PM EST Hospital Encounter [facility] Infusion Center [address] [phone] Carcinoma larynx (CMS/HCC) (Primary Dx) Discharge Disposition: Home or Self Care from Last 3 Months Surgical History Surgery Date Site/Laterality Comments OTHER SURGICAL HISTORY 07/13/2020 PROCEDURE:LARYNGECTOMY Medical History Medical History Date Comments A-fib (CMS/HCC) DX:A-fib (HCC) Gout DX:Gout Family History Medical History Relation Name Comments Cancer Father Hypertension Father Cancer Father's Sister Relation Name Status Comments Father Father's Sister Social History Tobacco Use Types Packs/Day Years [...] file Not on file Not on file Obstetrics History Last Filed Vital Signs Vital Sign Reading Time Taken Comments Blood Pressure 121/75 01/19/2024 10:56 AM EST Pulse 64 01/19/2024 10:56 AM EST Temperature 36.9 ??C (98.4 ??F) 01/19/2024 10:[address] Respiratory Rate - - Oxygen Saturation 100% 01/19/2024 10:56 AM EST Inhaled Oxygen Concentration - - Weight 85.3 kg (188 lb) 01/19/2024 10:56 AM EST Height 177.8 cm (5' 10 ) 05/26/2023 12:08 PM EDT Body Mass Index 26.98 05/26/2023 12:08 PM EDT Plan of Treatment Upcoming Encounters Date Type Department Care Team (Late st Contact Info) Description 07/19/2024 10:30 AM EDT Office Visit [facility] Hematology Oncology [address] [place] [address] Ubaldo Tracey MD [address] [place] [phone] Health Maintenance Due Date Last Done Comments Pneumococcal Vaccine: Pediatrics (0 to 5 Years) and At-Risk Patients (6 to 64 Years) (1 of 2 - PCV) 1983 Hepatitis A Vaccines (1 of 2 - Risk 2-dose series) 1996 Hepatitis B Vaccines (1 of 3 - 19+ 3-dose series) 1996 Colorectal Cancer Screening: Colonoscopy 01/18/2022 HIV Screening 01/18/2022 Hepatitis C Screening 01/18/2022 Medicare Annual Wellness Visit 01/18/2022 Social Influencers of Health Screening 01/18/2022 COVID-19 Vaccine ( season) 2023 02/20/2023, 12/30/2021, 01/23/2021, Additional history exists Depression Screening 07/27/2024 07/28/2023 DTaP,Tdap,and Td Vaccines (2 - Td or Tdap) 11/04/2026 11/04/2016 Cholesterol Screening (Lipid Panel) 07/25/2027 07/24/2022 Influenza Vaccine Completed 10/28/2023, , 01/10/2021, Additional history exists HIB Vaccines Aged Out No longer eligi ble based on patient's age to complete this topic HPV Vaccines Aged Out No longer eligi ble based on patient's age to complete this topic IPV Vaccines Aged Out No longer eligi ble based on patient's age to complete this topic MMR Vaccines Aged Out No longer eligi ble based on patient's age to complete this topic Meningococcal ACWY Vaccine Aged Out N o longer eligible based on patient's age to complete this topic RSV Immunization Patients Under 20 months Aged Out No longer eligible based on patient's age to complete this topic Varicella Vaccines Aged Out No longer eligible based on patient's age to complete this topic Procedures Procedure Name Priority Date/Time Associated Diagnosis Comments IR REMOVE TUNNELED CVAD W SUBQ PORT OR PUMP Routine 02/15/2024 11:41 AM EST Carcinoma larynx (CMS/HCC) from Last 3 Months Results * IR Remove Tunneled CVAD w [...] Gold Reviewed and Electronically Signed By: Shira Glod Signed Date: 02/15/2024 16:29 ET Workstation ID: [id number] Transcribed By: Self Edit Transcribed Date: 02/15/2024 [...] Signed Date: 02/15/2024 16:29 ET Workstation ID: [id number] Transcribed By: Self Edit Transcribed Date: 02/15/2024 16:28 ET Subramony Subramanny-Marcos MD IMG IR PROC EDURES from Last 3 Months Care Teams Market Editor Relationship Specialty Start Date End Date Annetta Arreaga MD [address] [place] [address] PCP - General Pediatrics 06/20/20
--- OUTSIDE RECORDS SUMMARY | 2024-03-16 13:48 | XMS_ITS | Encounter Summary ---
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, unspecified laterality Social History Tobacco Use Types Packs/Day Years Used Date Smoking Tobacco: Never Assessed Sex and Gender Information Value Date Recorded Sex Assigned at Male 12/09/2021 10:18 AM EDT Legal Sex Male 10:18 AM EDT Gender Identity Male 12/09/2021 10:18 AM EDT Sexual Orientation Straight 12/09/2021 10 :18 AM EDT documented as of this encounter Plan of Treatment Upcoming Encounters Date Type Department Care Team (Late Contact Info) Description 05/03/2024 11:30 AM EDT Office Visit [facility] MED & PEDS [address] [place], [place] [phone] Annetta Arreaga MD [address] [place], [place] [phone] documented as of this encounter Visit Diagnoses Diagnosis 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
--- OUTSIDE RECORDS SUMMARY | 2024-03-16 13:48 | XMS_ITS | Encounter Summary ---
Author Organization [employer] Address [address] [facility] 7t [place] [address] Care Team Providers Care Sales Merchandising Specialist Name Role Phone Annetta Arreaga MD Primary Care Provider [phone] Encounter Details Date Type Department Care Team (Late Contact Info) Description 08/05/2023 Orders Only [facility] MED & PEDS [address] [place] [address] ProviderAlexander MD Social History Tobacco Use Types Packs/Day Years Used Date Smoking Tobacco: Never Passive Smoke Exposure: Never Smokeless Tobacco: Never Depression Answer Date Recorded Patient Health Questionnaire-9 Score 18 07/28/2023 Patient Health Questionnaire-9 Score 18 07/28/2023 Last PHQ-9: Questionnaire Data Not on file 0 07/28/2023 Depression Answer Date Recorded Patient Health Questionnaire-2 Score 6 07/28/2023 Sex and Gender Information Value Date Recorded Sex Assigned at Male 12/09/2021 10:18 AM EDT Legal Sex Male 10:18 AM EDT Gender Identity Male 12/09/2021 10:18 AM EDT Sexual Orientation Straight 12/09/2021 10 :18 AM EDT documented as of this encounter Plan of Treatment Upcoming Encounters Date Type Department Care Team (Late st Contact Info) Description 05/03/2024 11:30 AM EDT Office Visit [facility] MED & PEDS [address] [place], [place] [phone] Annetta Arreaga MD [address] [place], [place] [phone] documented as of this encounter Procedures Procedure Name Priority Date/Time Associated Diagnosis Comments CT SOFT TISSUE NECK W CONTRAST Routine 08/04/2023 9:39 AM EDT documented in this encounter Results * CT SOFT TISSUE NECK W CONTRAST (08/04/2023 9:39 AM EDT) Anatomical Region Laterality Modality Computed Tomogra phy us Historical Provider MD IFNE CT PROCEDURES Final R esult documented in this encounter Visit Diagnoses Not on filedocumented in this encounter Additional Health Concerns Assessment Noted Time PHQ-9 Depression Total Score: 18 18 024 11:38 AM EDT documented as of this encounter Care Teams Sales Merchandising Specialist Relationship Specialty Start Date End Date Annetta Arreaga MD [address] [place] [address] PCP - General Family Medicine 02/09/18 documented as of this encounter
--- OUTSIDE RECORDS SUMMARY | 2024-03-16 13:48 | XMS_ITS | Encounter Summary ---
Author Organization [employer] Address [address] [facility] 7t [place] [address] Care Team Providers Care Physical Medicine Teacher Name Role Phone Annetta Arreaga MD Primary Care Provider Encounter Details Date Type Department Care Team ([facility] Contact Info) Description 03/01/2024 11:30 AM EST Office Visit [facility] CHC MED & PEDS [address] [place] [address] Annetta Arreaga MD [address] [place] [address] Depressive disorder (Primary Dx); Squamous cell carcinoma of larynx (CMS/HCC); Alcohol abuse; Paroxysmal atrial fibrillation (CMS/HCC) Social History Tobacco Use Types Packs/Day Years [...] AM EDT documented as of this encounter Last Filed Vital Signs Vital Sign Reading Time Taken Comments Blood Pressure 100/70 03/01/2024 11:42 AM EST Pulse 80 03/01/2024 11:42 AM EST Temperature 36.3 ??C (97.3 ??F) 03/01/2024 11:[address] Respiratory Rate 20 03/01/2024 11:42 AM EST Oxygen Saturation - - Inhaled Oxygen Concentration - - Weight 86.6 kg (191 lb) 03/01/2024 11:42 AM EST Height 185.4 cm (6' 1 ) 03/01/2024 11:42 AM EST Body Mass Index 25.2 03/01/2024 11:42 AM EST documented in this encounter Progress Notes * Annetta Arreaga MD - 03/01/2024 11:30 AM EST Subjective Patient ID: Slick Womack is a 48 y.o. male who presents for follow up. Sreedhar is a 48 y/o male patient of mine with a fib,depression,PTSD,nightmares,throat CA in remission etc.. here for follow up. Buspar bid is helping his anxiety.Wants to know if dose can be increased.His portacath was finally removed after I asked him to ask [place] oncologist to remove it for him as he has been in remission for years.This was done last week w/o complications. He also saw assisted living nursing director recently who decreased his metoprolol dose and added a new anti arrhythmic agent for his afib.Tolerating it well and he has a follow up with him next week. His nightmares are not controlledon doxepin. Review of Systems Constitutional: Negative for appetite change and fever. Eyes: Negative for visual disturbance. Respiratory: Negative for cough, chest tightness, shortness of breath and wheezing. Cardiovascular: Negative for chest pain, palpitations and leg swelling. Skin: Negative for rash. Hematological: Negative for adenopathy. Psychiatric/Behavioral: Positive for sleep disturbance. Negative for agitation, behavioral problems, decreased concentration, hallucinations and suicidal ideas. The patient is nervous/anxious. Objective BP 100/70 (BP Location: Left arm, Patient Position: Sitting, BP Cuff Size: Adult) Pulse80 Temp 97.3 ??F (36.3 ??C) (Oral) Resp 20 Ht 6' 1 (1.854 m) Wt 191 lb (86.6 kg) BMI 25.20 kg/m?? Physical Exam Vitals reviewed. Constitutional: Appearance: Normal appearance. He is normal weight. HENT: Head: Normocephalic. Nose: Nose normal. Cardiovascular: Rate and Rhythm: Normal rate. Rhythm irregular. Heart sounds: Normal heart sounds. No murmur heard. Pulmonary: [place]: Pulmonary effort is normal. Breath sounds: Normal breath sounds. No wheezing. Musculoskeletal: Right lower leg: No edema. Left lower leg: No edema. Neurological: Mental Status: He is oriented to person, place, and time. Assessment/Plan Diagnoses and all orders for this visit: Depressive disorder Comments: Continue valenfaxine,increased buspar to 30 mg bid as it is helping his anxiety a lot. Switched doxepin as its not helping his nightmares to topamax nightly.F/U Squamous cell carcinoma of larynx (CMS/HCC) Comments: Has [facility] f/u placed.In remission.Portacath removed. Alcohol abuse Comments: Sober x 2 years on oral naltrexone,doing well. Paroxysmal atrial fibrillation (CMS/HCC) Comments: on new meds.Meds reconciled.F/U with Dr.Martin next week as planned.Compliant, Other orders - topiramate (Topamax) 50 MG tablet; Take 1 tablet (50 mg) by mouth at bedtime. - busPIRone (Buspar) 30 MG tablet; Take 1 tablet (30 mg) by mouth 2 times daily. documented in this encounter Plan of Treatment Upcoming Encounters Date Type Department Care Team (Late st Contact Info) Description 05/03/2024 11:30 AM EDT Office Visit [facility] MED & PEDS [address] [place] [address] Annetta Arreaga MD [address] [place] [address] documented as of this encounter Visit Diagnoses Diagnosis Depressive disorder- Primary Depressive disorder, not elsewhere classified Squamous cell carcinoma of larynx (CMS/HCC) Malignant neoplasm of larynx, unspecified site Alcohol abuse Nondependent alcohol abuse, unspecified drinking behavior Paroxysmal atrial fibrillation (CMS/HCC) Atrial fibrillation documented in this encounter Additional Health Concerns Assessment Noted Time PHQ-9 Depression Total Score: 18 07/27/2 024 11:38 AM EDT documented as of this encounter Care Teams Physical Medicine Teacher Relationship Specialty Start Date End Date Annetta Arreaga MD [address] [place] [address] PCP - General Family Medicine 02/09/18 documented as of this encounter
--- OUTSIDE RECORDS SUMMARY | 2024-03-16 13:48 | XMS_ITS | Encounter Summary ---
Author Organization [employer] Address [address] [facility] [address] [place] [address] Care Team Providers Care Emergency Vehicle Driver Name Role Phone Annetta Arreaga MD Primary Care Provider [phone] Encounter Details Date Type Department Care Team (Latest Contact Info) Description 02/29/2024 Travel Social History Tobacco Use Types Packs/Day Years [...] Description 05/03/2024 11:30 AM EDT Office Visit [facility] CHC MED & PEDS [address] [place] [address] Annetta Arreaga MD [address] [place] [address] documented as of this encounter Visit Diagnoses Not on filedocumented in this encounter Additional Health Concerns Assessment Noted Time PHQ-9 Depression Total Score: 18 024 11:38 AM EDT documented as of this encounter Care Teams Emergency Vehicle Driver Relationship Specialty Start Date End Date Annetta Arreaga MD [address] [place] [address] PCP - General Family Medicine 02/09/18 documented as of this encounter
--- OUTSIDE RECORDS SUMMARY | 2024-03-16 13:48 | XMS_ITS | Encounter Summary ---
Author Organization [employer] Address [address] [facility] 7 [place] [address] Care Team Providers Care Bank Analyst Name Role Phone Annetta Arreaga MD Primary Care Provider [phone] Reason for Visit * Reason Onset Date Comments Chart Prep 02/25/2024 Encounter Details Date Type Department Care Team ([facility] st Contact Info) Description 02/25/2024 Telephone [facility] CHC MED & PEDS [address] [place], [place] [phone] Annetta Arreaga MD [address] [place], [place] [phone] Chart Prep Social History Tobacco Use Types Packs/Day Years [...] encounter Miscellaneous Notes * Telephone Encounter - Isabella England [place] - 02/25/2024 11:26 AM EST Chart Prep Labs: not applicable Images: not applicable Vaccines due: yes Referrals: n/a Screenings: STI screening Overdue care gaps: Sbirt, PHQ-9, disability screening documented in this encounter Plan of Treatment Upcoming Encounters Date Type Department Care Team ([facility] st Contact Info) Description 05/03/2024 11:30 AM EDT Office Visit [facility] CHC MED & PEDS [address] [place] [address] Annetta Arreaga MD [address] [place] [address] documented as of this encounter Visit Diagnoses Not on filedocumented in this encounter Additional Health Concerns Assessment Noted Time PHQ-9 Depression Total Score: 18 024 11:38 AM EDT documented as of this encounter Care Teams Bank Analyst Relationship Specialty Start Date End Date Annetta Arreaga MD [address] [place] [address] PCP - General Family Medicine 02/09/18 documented as of this encounter
--- OUTSIDE RECORDS SUMMARY | 2024-03-16 13:48 | XMS_ITS | Clinical Summary ---
Author Organization [facility] Address [address] [place] [address] Care Team Providers Care Steam And Gas Turbine Assembler Name Role Phone Annetta Arreaga MD Primary Care Provider [phone] Allergies No known active allergies Medications Medication Sig Dispensed Refills Start Date End Date Status allopurinol (ZYLOPRIM) 100 mg tablet Take 1 tablet (100 mg total) by mouth every morning. 04/23/2022 Active amphetamine-dextroamp hetamine (ADDERALL) 15 MG tablet Take 1 tablet (15 mg total) by mouth 2 (two) times a day. 06/16/2022 Active FLUoxetine (PROzac) 20 MG capsule Take 1 capsule (20 mg total) by mouth every morning. 2022 Active levothyroxine (SYNTHROID, LEVOTHROID) 50 MCG tablet Take 1 tablet (50 mcg total) by mouth daily on an empty stomach. 03/03/2022 Active metoPROLOL SUCCINATE (TOPROL-XL) 25 MG 24 hr tablet Take 2 tablets (50 mg total) by mouth. Active risperiDONE (RisperDAL) 2 MG tablet every evening. 06/09/2022 Active PANTOprazole (PROTONIX) 40 MG EC tabletIndications:Gas trointestinal hemorrhage associated with anorectal source Take 1 tablet (40 mg total) by mouth 2 (two) times a day in the morning and the early evening.. Do not start before June 30, 2022. 60 tablet 06/30/2022 Active calcium carbonate (TUMS) 500 MG chewable tabletIndications:Hyp ocalcemia Chew 1 tablet (500 mg total) 3 (three) times a day with meals. 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 4 or more times a week 06/27/2022 Q2: How many drinks containi ng alcohol do you have on a typical day when you are drinking? 5 or 6 Q3: How often do you have si x or more drinks on one occasion? Less than monthly 06/27/2022 Overall Financial Resource Strain (CARDIA) Answe r Date Recorded How hard is it for you to pa y for the very basics like food, housing, medical care, and heating? Not hard at all 06/29/2022 Hunger Vital Sign Answer Date Recorded Within the past 12 months, y ou worried that your food would run out before you got the money to buy more. Never true 06/30/19 23 Within the past 12 months, t he food you bought just didn't last and you didn't have money to get more. Never true 06/29/2022 PRAPARE - Transportation Answer Date Re corded In the past 12 months, has l ack of transportation kept you from medical appointments or from getting medications? No 06/29/2022 Lack of Transportation (Non-Medical) Not on file 06/29/2022 Housing Stability Vital Sign Answer Daniel e Recorded Unable to Pay for Housing in the Last Year Not o n file 06/29/2022 In the last 12 months, how many places have you lived? 1 06/29/2022 In the last 12 months, was t here a time when you did not have a steady place to sleep or slept in a long term (including now)? No 06/29/2022 Sex and Gender Information Value Date Recorded Sex Assigned at Male 06/26/2022 10:41 PM EDT Gender Identity Male 06/26/2022 10:41 PM EDT Sexual Orientation Heterosexual (straight) 06/26 10:41 PM EDT Last Filed Vital Signs Vital Sign Reading Time Taken Comments Blood Pressure 116/80 06/29/2022 2:38 PM EDT Pulse 84 06/29/2022 2:38 PM EDT Temperature 37.3 ??C (99.1 ??F) 06/29/2022 2:38 PM ED T Respiratory Rate 18 06/29/2022 2:38 PM EDT Oxygen Saturation 99% 06/29/2022 2:38 PM EDT Inhaled Oxygen Concentration - - Weight - - Height - - Body Mass Index - - Plan of Treatment Health Maintenance Due Date Last Done Comments Hepatitis C Virus Screening 1977 HIV Screening 1990 DTaP/Tdap/Td Vaccines (1 - Tdap) 1996 Hepatitis B Vaccines (1 of 3 - 19+ 3-dose series) 1996 Influenza Vaccine 09/10/2023 COVID-19 Vaccine ( - 2023-2 5 season) 2023 Colonoscopy 06/27/2032 06/27/2022 Pneumococcal Vaccine: Pediat hans (0-5 Years) and At-Risk Patients (6 to 49 Years) Aged Out No longer eligible b ased on patient's age to complete this topic Advance Directives * Full Code (Latest Code Status on File) Date Activated Date Inactivated Comments 06/27/2022 2:36 AM Healthcare Agents on File Name Relationship Healthcare Agent Relationshi p Communication Adele Shanta Parent 4. Next of Kin ( Spouse, Adult Child, Parent, Adult Sibling, Grandparent) Omar Womack Parent 4. Next of Kin ( Spouse, Adult Child, Parent, Adult Sibling, Grandparent) Care Teams Steam And Gas Turbine Assembler Relationship Specialty Start Date End Date Annetta Arreaga MD [address] [place] [address] PCP - General Internal Medicine 06/29/22
--- OUTSIDE RECORDS SUMMARY | 2024-03-16 13:48 | XMS_ITS | Clinical Summary ---
Author Organization [facility] Address [address] [place] [address] Care Team Providers Care Security Strategist Name Role Phone Annetta Arreaga MD Primary Care Provider [phone] Allergies No known active allergies Medications Medication Sig Dispensed Refills Start Date End Date Status albuterol 108 (90 Base) MCG/ACT inhaler 1 puff every 4 (four) hours. 0 06/07/2020 Active allopurinol (ZYLOPRIM) 100 MG tablet Take 1 tablet (100 mg total) by mouth. 0 Active metoprolol succinate (TOPROL-XL) 24 hr tablet 25 mg Take 1 tablet (25 mg total) by mouth daily. 0 06/13/2020 Active risperiDONE (RisperDAL) 2 MG tablet Take 1 tablet (2 mg total) by mouth every evening. 0 07/27/2020 Active lidocaine-prilocaine (EMLA) cream Apply 1/8 of tube to port prior to chemotherapy. 30 g 1 08/14/2020 Active naltrexone (DEPADE) 50 MG tablet Take 1 tablet (50 mg total) by mouth daily. 0 Active levothyroxine (SYNTHROID) tablet 100 mcg TAKE 1 TABLET BY MOUTH EVERY DAY IN THE MORNING ON AN EMPTY STOMACH 90 tablet 0 12/06/2023 Active Active Problems Problem Noted Date Diagnosed Date Radiation dermatitis 11/23/2020 Oral mucositis 11/23/2020 Lymphedema 11/23/2020 Dehydration 11/09/2020 Paroxysmal atrial fibrillation 08/24/2020 Laryngeal cancer 07/27/2020 Cancer Staging:Pathologic stage from 07/13/2020:Stage ALKA(pT4a, pN2a, cM0) - Signed by Ubaldo Lopez MD on 07/27/2020 Generalized anxiety disorder 06/22/2020 Inflammatory polyarthropathy 06/22/2020 Major depressive disorder, recurrent, unspecifie d 06/22/[address] 06/22/2020 Attention-deficit hyperactiv ity disorder, 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 Family History Medical History Relation Name Comments Cancer Father Hypertension Father Cancer Paternal Aunt Relation Name Status Comments Father Paternal Aunt Social History Tobacco Use Types Packs/Day Years Used Date Smoking Tobacco: Former Cigarettes Q uit: 06/10/2020 Smokeless Tobacco: Never Alcohol Use Standard Drinks/Week Comments Not Currently 0 (1 standard drink = 0.6 oz pur e alcohol) Sex and Gender Information Value Date Recorded Sex Assigned at Male 11/04/2021 10:24 AM EDT Gender Identity Not on file Sexual Orientation Not on file Job Start Date Occupation Industry Not on file Not on file Not on file Last Filed Vital Signs Vital Sign Reading Time Taken Comments Blood Pressure 130/90 05/26/2023 12:08 PM EDT Pulse 79 05/26/2023 12:08 PM EDT Temperature 36.7 ??C (98 ??F) 05/26/2023 12:08 PM EDT Respiratory Rate 18 12/06/2020 11:01 AM EDT Oxygen Saturation 100% 05/26/2023 12:08 PM EDT Inhaled Oxygen Concentration - - Weight 74.6 kg (164 lb 6.4 oz) 05/26/2023 12:08 PM EDT Height 177.8 cm (5' 10 ) 05/26/2023 12:08 PM EDT Body Mass Index 23.59 05/26/2023 12:08 PM EDT Plan of Treatment Health Maintenance Due Date Last Done Comments Hepatitis B Vaccines (1 of 3 - 3-dose series) 1977 Hepatitis C Screening 1977 Pneumococcal Vaccine (1 of 2 - PCV) 1983 Depression Screening 1989 BMI Counseling 1995 Preventative Health Evaluation 1995 DTap / Tdap / Td (1 - Tdap) 1996 Colon Cancer Screening (Colonoscopy) 2022 COVID-19 Vaccine ( season) 2023 02/20/2023, 05/29/2020, 04/30/2020 Influenza Vaccine (#1) 2023 3, 01/10/2021, 11/03/2018, Additional history exists RSV Ped < 20 months Aged Out No longe r eligible based on patient's age to complete this topic Care Teams Security Strategist Relationship Specialty Start Date End Date Annetta Arreaga MD [address] [place] [address] PCP - General Pediatrics 06/20/20
--- OUTSIDE RECORDS SUMMARY | 2024-03-16 13:48 | XMS_ITS | Encounter Summary ---
Author Organization [employer] Address [address] [place] [address] Care Team Providers Care Grocery Store Associate Name Role Phone Annetta Arreaga MD Primary Care Provider [phone] Reason for Visit * Reason Onset Date Comments Hospital Follow-up 06/30/2022 Encounter Details Date Type Department Care Team ([facility] st Contact Info) Description 06/30/2022 Telephone [facility] MEDICINE [address] [place] [address] Annetta Arreaga MD [address] [place], [place] [phone] Hospital Follow-up Social History Tobacco Use Types Packs/Day Years Used Date Smoking Tobacco: Never Assessed Depression Answer Date Recorded Patient Health Questionnaire-9 [...] Orientation Straight 12/09/2021 10 :18 AM EDT COVID-19 Exposure Response Date Recorded In the last 10 days, have yo u been in contact with someone who was confirmed or suspected to have Coronavirus/COVID-19? No / Unsure 07/18/2022 9:01 AM EDT documented as of this encounter Miscellaneous Notes * Telephone Encounter - China Noel - 06/30/2022 8:08 AM EDT Patient mom calling for HDF follow up appointment. Patient hospitalized at [facility] then transferred to [facility] on 06/26/22 and discharged on 06/29/22 .Reports to be seen for Patient external bleeding. advised will forward to team nurse for follow up and appointment scheduling. Please contact at [phone] documented in this encounter Plan of Treatment Upcoming Encounters Date Type Department Care Team (Late st Contact Info) Description 05/03/2024 11:30 AM EDT Office Visit [facility] MED & PEDS [address] [place] [address] Annetta Arreaga MD [address] [place], [place] [phone] documented as of this encounter Visit Diagnoses Not on filedocumented in this encounter Care Teams Grocery Store Associate Relationship Specialty Start Date End Date Annetta Arreaga MD [address] [place] [id number] PCP - General Family Medicine 02/09/18 documented as of this encounter
--- OUTSIDE RECORDS SUMMARY | 2024-03-16 13:48 | XMS_ITS | Encounter Summary ---
Author Organization [employer] Address [address] [facility] [address] [place] [address] Care Team Providers Care Ingot Weigher Name Role Phone Annetta Arreaga MD Primary Care Provider [phone] Reason for Visit * Reason Onset Date Comments Med Refill 11/24/2022 Encounter Details Date Type Department Care Team ([facility] st Contact Info) Description 11/24/2022 Telephone [facility] MED & PEDS [address] [place] [address] Annetta Arreaga MD [address] [place], [place] [phone] Med Refill Social History Tobacco Use Types Packs/Day Years [...] encounter Miscellaneous Notes * Telephone Encounter - Nissa Yang LPN - 11/24/2022 10:23 AM EDT Please review message below and advise. Thank you * Telephone Encounter - Patrizia Prashant - 11/24/2022 10:00 AM EDT Tc from mom requesting refill on amphetamine-dextroamphetamine (Adderall) 15 MG tablet to be sent to [facility]/pharmacy #[id number] States therapist who prescribes medication is retired and pt is waiting on a new therapist but will be about a four week wait. Any questions, please contact mom at [phone] documented in this encounter Plan of Treatment Upcoming Encounters Date Type Department Care Team ([facility] st Contact Info) Description 05/03/2024 11:30 AM EDT Office Visit [facility] MED & PEDS [address] [place] [address] Annetta Arreaga MD [address] [place] [address] documented as of this encounter Visit Diagnoses Not on filedocumented in this encounter Additional Health Concerns Assessment Noted Time PHQ-9 Depression Total Score: 3 11/07/19 23 1:47 PM EDT documented as of this encounter Care Teams Ingot Weigher Relationship Specialty Start Date End Date Annetta Arreaga MD [address] [place] [address] PCP - General Family Medicine 02/09/18 documented as of this encounter
--- OUTSIDE RECORDS SUMMARY | 2024-03-16 13:48 | XMS_ITS ---
Author Organization 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 in [place] for open access clinic (M-F 10 am to 12 pm) for intake process. Paroxysmal atrial fibrillation 06/22/2020 Alcohol abuse 12/01/2011 Dyslipidemia 12/01/2011 Elevated liver enzymes 12/01/2011 Depressive disorder 07/17/2011 Current Oncology Plans CENTRAL VENOUS ACCESS ( CVA ) MAINTENANCE / BLOOD DRAW / CATHETER CLEARANCE / DRESSING CHANGE / FLUSH* Plan Start Date:12/16/2023 Plan Provider:Ubaldo Tracey MD Linked Problems Carcinoma larynx (CMS/HCC) Treatment Medications No medications scheduled. Past Plans No past plan information found. Radiation Treatments * No radiation treatments are documented for this patient in Epic. Treatments may have been administered in another system. Lifetime Dose Tracking * Chemical Lifetime Dose Automatic Entry Manual Entr y Fluoro Time 0.2 minutes 0.2 minutes 0 minutes Dose Area Product 18 mGy-cm2 18 mGy-cm2 0 mGy-cm2
--- OUTSIDE RECORDS SUMMARY | 2024-03-16 13:48 | XMS_ITS | Encounter Summary ---
Author Organization [employer] Address [address] [place] [address] Care Team Providers Care Hockey Player Name Role Phone Annetta Arreaga MD Primary Care Provider [phone] Encounter Details Date Type Department Care Team (Latest Contact Info) Description 03/01/2024 Travel Social History Tobacco Use Types Packs/Day [...] Description 05/03/2024 11:30 AM EDT Office Visit [facility] CH[facility] MED & PEDS [address] [place] [address] Annetta Arreaga MD [address] [place] [address] documented as of this encounter Visit Diagnoses Not on filedocumented in this encounter Additional Health Concerns Assessment Noted Time PHQ-9 Depression Total Score: 18 024 11:38 AM EDT documented as of this encounter Care Teams Hockey Player Relationship Specialty Start Date End Date Annetta Arreaga MD [address] [place] [address] PCP - General Family Medicine 02/09/18 documented as of this encounter
--- NOTE | 2024-03-16 14:13 | ECG_ITS ---
Test Reason : Status post cardioversion Blood Pressure : */* mmHG Vent. Rate : 59 BPM Atrial Rate : 59 BPM P-R Int : 192 ms QRS Dur : 88 ms QT Int : 424 ms P-R-T Axes : 18 -18 6 degrees QTcB Int : 419 ms Sinus bradycardia Otherwise normal ECG When compared with ECG of 25-Oct-2018 07:34, Sinus rhythm has replaced Atrial fibrillation Referred By: Filemon Salazar Electronically Signed By: Grant Suarez
--- NOTE | 2024-03-16 14:13 | HO.CARDIVERS ---
Cardioversion Procedure Note Cardioversion Date of Procedure: 03/16/2024 Ordering Provider: Zainab Salazar Performing Provider: Zainab Salazar Indication for Procedure: Persistent atrial fibrillation Pre-Op Diagnosis: Same Post-Op Diagnosis: Normal sinus rhythm Performed with Transesophageal Echo: No History: See my office note Consent: Verbal and Written consent was obtained from the patient before starting and after confirming oral anticoagulation antiarrhythmic drug use. The patient was made aware of the risk of synchronized cardioversion including benefits and alternatives Procedure: After consent obtained, cardioversion pads were attached in anteroposterior configuration and the patient was sedated by the anesthesia team. Once adequate sedation achieved, patient was delivered 200 joules of biphasic synchronized energy in anteroposterior configuration Complications: None Impression: Successful conversion to sinus rhythm Recommendations: 1. 12 lead EKG 2. Continue oral anticoagulation and Multaq use 3. Follow up in the clinic after Holter monitor
[2024-03-16 14:15] VITALS: BP 99/67; PULSE 50; RESP 18; TEMP 36.8; O2SAT 100
[2024-03-16 14:30] VITALS: BP 98/70; PULSE 53; RESP 18; O2SAT 99
== END 2024-03-16 14:55 | disposition home or self-care (01) ==
PROVIDERS: PCP Pediatrics; Visit Provider Internal Medicine Cardiovascular Disease
PROC: 5A2204Z Restoration of Cardiac Rhythm, Single (ICD-10-PCS; principal; 2024-03-16 13:30)
DX: I48.19 Other persistent atrial fibrillation (principal); I48.0 Paroxysmal atrial fibrillation; I10 Essential (primary) hypertension; E78.5 Hyperlipidemia, unspecified; Z85.818 Personal history of malignant neoplasm of other sites of lip, oral cavity, and pharynx; M10.9 Gout, unspecified; F32.A Depression, unspecified; F41.9 Anxiety disorder, unspecified; Z79.01 Long term (current) use of anticoagulants; Z79.899 Other long term (current) drug therapy; F10.11 Alcohol abuse, in remission; F19.11 Other psychoactive substance abuse, in remission; Z98.890 Other specified postprocedural states; Z87.891 Personal history of nicotine dependence
CPT/HCPCS: 92960; 93005; J2704

== ENCOUNTER → 2024-03-16 12:24 | Outpatient (BNV) | payer MEDICARE, SELFPAY | PROVIDERS: PCP Pediatrics; Visit Provider Internal Medicine Cardiovascular Disease | DX: I48.11 Longstanding persistent atrial fibrillation (principal); R00.1 Bradycardia, unspecified | CPT/HCPCS: 92960; 93010 ==

== ENCOUNTER 2024-05-03 11:59 | Outpatient (REF) | payer MEDICARE, SELFPAY ==
[2024-05-03 15:01] LABS: TSH reflex Free T4 4.85 uIU/mL (0.32-4.0)
[2024-05-03 16:18] LABS: Free T4 (Free Thyroxine) 1.06 ng/dL (0.71-1.85)
== END 2024-05-03 12:00 | disposition home or self-care (01) ==
LOC: HO.CHCLDS 11:59
PROVIDERS: Visit Provider Pediatrics
DX: E03.8 Other specified hypothyroidism (principal)
CPT/HCPCS: 36415; 84439; 84443

== ENCOUNTER 2024-05-09 08:54 | Outpatient (AMB) | payer MEDICARE, SELFPAY ==
--- NOTE | 2024-05-09 09:01 | A.OFFVIS_ITS ---
Vital Signs 05/09/24 09:02 Height 5 ft 10 in Weight 187 lb 6.287 oz BMI 26.9 BP 110/68 Blood Pressure Location Lt brachial Position Sitting Pulse 68 Intake Visit Reasons: Follow up/EKG Intake Note: Follow-up with ekg feeling good Senior Power Plant Operator Required: No Allergies No Known Allergies [No Known Allergies*] Allergy (Verified 05/20/22 12:03) Medication List - Last Reconciled 05/09/24 by Filemon Salazar MD allopurinol 100 mg PO DAILY buspirone 10 mg PO BID dronedarone (Multaq) 400 mg PO BID levothyroxine 100 mcg PO DAILY metoprolol succinate ER 50 mg PO DAILY 90 days mirtazapine 7.5 mg PO BEDTIME naltrexone 50 mg PO DAILY pantoprazole 20 mg PO DAILY rivaroxaban 20 mg PO DAILY 90 days venlafaxine 75 mg PO BID HPI Comments Details: Sreedhar comes for follow-up. He has been doing very well from cardiac perspective. He has not significant symptoms irregular heartbeat. No lightheadedness, syncope. No significant issues with blood pressure. No heart failure symptoms. No bleeding issues or neurologic events. No exertional chest pain. Does not use alcohol anymore [facility] Medical History (Updated 05/09/24 @ 09:22 by Filemon Salazar MD) Atrial fibrillation On beta ana at home History of drug abuse History of alcohol abuse Essential hypertension Gout Dyslipidemia History of throat cancer Depression Anxiety Atrial flutter Chronic anticoagulation PAF (paroxysmal atrial fibrillation) Surgical History Hx of colonoscopy with polypectomy Hx of arthroscopic knee surgery History of tonsillectomy H/O laryngectomy Family History Father HTN (hypertension) Arthritis of knee Mother Arthritis of knee Social History Alcohol intake: never Patient Tobacco Use Status: Former Tobacco user Cigarettes Per Day: 10 Review of Systems Const Denies chills, Denies fatigue, Denies fever(s), Denies frequent falls, Denies weakness, Denies weight gain and Denies weight loss ENT Denies dizziness Card Denies chest pain, Denies leg edema, Denies lightheadedness, Denies palpitations, Denies dyspnea, Denies dyspnea on exertion, Denies orthopnea and Denies other (loss of consciousness) Resp Denies cough, Denies dyspnea and Denies dyspnea on exertion GI Denies hematochezia and Denies change in stool character Musc Denies abnormal gait, Denies muscle weakness, Denies numbness, Denies radiating pain into limb and Denies tingling Neuro Denies abnormal gait, Denies dizziness, Denies frequent falls, Denies numbness, Denies tingling and Denies weakness Endo Denies fatigue and Denies palpitations Physical Exam Vital Signs: Last Vital Signs Pulse 68 05/09/24 09:02 BP 110/68 05/09/24 09:02 BMI result Body Mass Index 26.9 Const General: cooperative, comfortable, alert and awake Nutritional Appearance: underweight Orientation/consciousness: patient oriented x3 Limitations: no limitations Neck Neck: Yes trachea midline, Yes no JVD and Yes other (Tracheostomy tube in place) Resp Effort & Inspection: normal respiratory effort Auscultation: clear to auscultation bilaterally Cardio Jugular venous distension: no JVD Palpation: normal PMI Rate: tachycardic Rhythm: abnormal rhythm irregularly irregular Heart sounds: S1 normal heart sound present, S2 normal heart sound present, no click, no gallops and no murmurs GI Auscultation: normal bowel sounds Skin General skin exam: no rashes or lesions noted Neuro General: patient oriented x3 and no focal motor deficits Extrem General: Yes no clubbing, cyanosis or edema Psych Appearance: grossly normal Office Procedures EKG Details: EKG shows normal sinus rhythm normal EKG [id number], Complete Assessment & Plan Assessment & Plan (1) PAF (paroxysmal atrial fibrillation): Comment: follows w/[facility]-last appt 07/2021 with a 1 year follow-up scheduled for 07/22/22 Code(s): I48.0 - Paroxysmal atrial fibrillation Category: Medical Plan: Paroxysmal atrial fibrillation which has remained suppressed not want Multaq therapy after cardioversion on 03/16/2024. He is doing well with Multaq therapy. Continue the same. Avoidance of stimulants especially alcohol in his case was discussed with him. Understands agrees. Will need EKGs every 3 months while on Multaq therapy. Low risk for cardioembolic events. Discontinue Xarelto therapy has been more than 6 weeks since his cardioversion. Advised to call me with any worsening symptoms. (2) Essential hypertension: Code(s): I10 - Essential (primary) hypertension Category: Medical Plan: History of hypertension although was more in the setting of alcohol use. Currently blood pressures remained stable and doing well. Continue metoprolol therapy. Low-salt diet was discussed. Avoidance of alcohol was discussed. Advised to maintain activity level as tolerated. Will follow up in the clinic in 3 months for EKG in 6 months with me. Thank you for allowing me to partake in his care Coding Level of Care Code Est Pt Level 4 (82542) Complex EM visit Add On G2211 Diagnoses PAF (paroxysmal atrial fibrillation) I48.0 Essential hypertension I10 CPT Codes EKG - CPT: 83372-[id number], Complete ([id number])
[2024-05-09 09:02] VITALS: BP 110/68; PULSE 68; BMI 26.9
== END 2024-05-09 09:34 | disposition home or self-care (01) ==
PROVIDERS: PCP Pediatrics; Visit Provider Internal Medicine Cardiovascular Disease
DX: I48.0 Paroxysmal atrial fibrillation (principal); I10 Essential (primary) hypertension
CPT/HCPCS: 93010; 99214; G2211

== ENCOUNTER → 2024-05-09 08:54 | Outpatient (BNVA) | payer MEDICARE, SELFPAY | PROVIDERS: PCP Pediatrics; Visit Provider Internal Medicine Cardiovascular Disease | DX: I48.0 Paroxysmal atrial fibrillation (principal); I10 Essential (primary) hypertension | CPT/HCPCS: 93005; 99212 ==

== ENCOUNTER → 2024-08-03 12:51 | Outpatient (BNVA) | payer MEDICARE, SELFPAY | PROVIDERS: PCP Pediatrics; Visit Provider Internal Medicine Cardiovascular Disease | DX: Z13.89 Encounter for screening for other disorder (principal) ==

== ENCOUNTER 2024-10-01 11:51 | Emergency (ER) | payer MEDICARE, SELFPAY ==
[2024-10-01] VITALS (7 sets, daily range): BP systolic 113–148; BP diastolic 71–97; PULSE 72–150; RESP 18; TEMP 37.3–37.7; O2SAT 94–99; BMI 28.7
--- NOTE | 2024-10-01 11:58 | MHC.CARE ---
Maryse from [facility] called to report patient was seen by crisis in the community after disclosing SI to sister while intoxicated. He has 1 prior suicide attempt a year ago by overdosing that was not reported and did not receive medical attention. Patient has several medical issues, including throat cancer. Has expressed feeling hopeless and helpless, would like to end it all. [facility] found patient appropriate for IPOC
--- NOTE | 2024-10-01 12:01 | ED.GENADULT ---
HPI - General Adult General Chief complaint: Psychiatric Symptoms Stated complaint: SEC 12,HOPLESS,SI STATEMENTS,ETOH USE,THROAT CA Time Seen by Provider: 10/01/24 11:53 Source: patient, family and EMS Mode of arrival: EMS Limitations: other (poor historian ) History of Present Illness ED Provider: BIANCA Sandoval HPI narrative: This is a 49-year-old male history dyspepsia, atrial fibrillation, ETOH abuse has been clean for 23 months, drug abuse, history of throat cancer with laryngectomy presenting to the emergency department with suicidal ideation with no particular plan. Patient reports he has been drinking a lot more than usual. He reports he drinks 4 pt of vodka a day and has been doing so for the last few days. Reports increasing life stressors. Patient was brought in on a section 12. He is very upset to be here and would like to leave and go to sleep. Denies any medical complaints. Related Data Home Medications ?Medication ?Instructions ?Recorded ?Confirmed allopurinol 100 mg tablet 100 mg PO DAILY 10/22/20 10/01/24 naltrexone 50 mg tablet 50 mg PO DAILY 07/20/23 10/01/24 buspirone 10 mg tablet 30 mg PO BID 02/25/24 10/01/24 levothyroxine 100 mcg tablet 100 mcg PO DAILY@0600 02/25/24 10/01/24 pantoprazole 20 mg tablet,delayed 20 mg PO DAILY@0630 02/25/24 10/01/24 release mirtazapine 7.5 mg tablet 15 mg PO BEDTIME 05/09/24 10/01/24 venlafaxine 75 mg tablet 75 mg PO BID 05/09/24 10/01/24 Previous Rx's ?Medication ?Instructions ?Recorded dronedarone 400 mg tablet (Multaq) 400 mg PO BID #180 tabs 06/13/24 metoprolol succinate 50 mg 25 mg (1/2 x 50 mg) PO DAILY 90 08/19/24 tablet,extended release 24 hr days #45 tabs Allergies Allergy/AdvReac Type Severity Reaction Status Date / Time No Known Allergies (No Known Allergy Verified 10/01/24 11:59 Allergies*) Review of Systems Review of Systems: Yes all other systems are reviewed and are negative PMFSH Past Medical History Attestation statement: The following information was validated with the patient. Source: old records reviewed and nursing notes reviewed Medical History Atrial fibrillation On beta ana at home History of drug abuse History of alcohol abuse Essential hypertension Gout Dyslipidemia History of throat cancer Depression Anxiety Atrial flutter Chronic anticoagulation PAF (paroxysmal atrial fibrillation) Surgical History Hx of colonoscopy with polypectomy Hx of arthroscopic knee surgery History of tonsillectomy H/O laryngectomy Family History Family History Father HTN (hypertension) Arthritis of knee Mother Arthritis of knee Social History Social History Alcohol intake: current Alcohol intake frequency: 3 or more drinks per day Alcohol type: hard liquor Patient Tobacco Use Status: Former Tobacco user Cigarettes Per Day: 10 Smoked in Last 30 Days: No Use of substances other than those prescribed or required for medical reasons: No Advance Directives: No Advance Directives Information Provided: Yes Do you have a plan to hurt others: No Plan Physical Exam ED Exam Exam: Appearance: Alert.? Oriented X3.? No acute distress.? Head: Normocephalic, atraumatic, no step-offs or deformities Eyes: Pupils equal, round and reactive to light.? ENT: Pharynx normal.? Neck: Normal inspection.? Neck supple.? CVS: Normal heart rate and rhythm.? Pulses normal.? Respiratory: No respiratory distress.? Breath sounds normal.? Abdomen: Soft and nontender.? Skin: Skin warm and dry.? Normal skin color.? Normal skin turgor.? Extremities: No lower extremity edema.? No calf ttp. 5/5 strength to bilateral upper and lower extremities Back: No midline tenderness, no C-spine tenderness, full range of motion, no CVA tenderness bilaterally Neuro: Oriented X 3.? No motor deficit.? No sensory deficit. CN 2-12 intact Vital Signs: Vital Signs - 24 hr 10/02/24 10:18 Temperature 98.6 F Pulse Rate 81 Respiratory Rate 18 Blood Pressure 137/89 Pulse Oximetry 96 Oxygen Delivery Method Room Air BMI result Body Mass Index 28.7 vss Course Reevaluation(s) Reevaluation #1: Patient's EKG with a rate of 144 and atrial flutter with variable AV block, in April she was seen in the cardiology office where he was in a normal sinus rhythm. Patient has not taken his metoprolol. Will give him his home dose here. I suspect this was brought on by alcohol use. Time: 12:18 Reevaluation #2: Patient is now in a normal sinus rhythm. CBC unremarkable. Chemistry with mild elevation in BUN and creatinine. He is receiving IV fluids. Ethanol 266. Salicylate, acetaminophen negative. Cardiology was okay with administration of home metoprolol in fluids. Ultimately, patient did break without any other intervention. UA clean He is requesting something else to sleep I will give Benadryl. Time: 14:27 Reevaluation #3: This time patient will be placed into observation to allow more time to be evaluated by care team. At time observation was started patient common cooperative no acute distress will continue to monitor Time: 15:16 Additional Reevaluation(s): Time: 07:20 Date: 10/02/24 Provider: Chris Navarro MD Patient in physician observation for psychiatric evaluation.? No acute events reported overnight. No current complaints. VS stable.? Patient is in bed search status/pending CARE team evaluation. Will continue to monitor. 10/02/2024 10:10 patient was seen by crisis team cleared for discharge at this time this will end the physician observation status Medications Administered Discontinued Medications Generic Name Dose Route Start Last Admin Trade Name Freq PRN Reason Stop Dose Admin Allopurinol 100 mg 10/02/24 09:00 10/02/24 09:14 Allopurinol 100 Mg Tablet PO 100 mg DAILY ESTER Administration Buspirone HCl 30 mg 10/01/24 21:00 10/02/24 09:15 Buspirone Hcl 10 Mg Tablet PO 30 mg BID ESTER Administration Diazepam 5 mg 10/01/24 19:41 10/01/24 20:24 Diazepam 5 Mg Tablet PO 10/01/24 19:42 5 mg ONCE ONE Administration Diphenhydramine HCl 50 mg 10/01/24 14:26 10/01/24 14:36 Diphenhydramine Hcl 50 Mg/Ml Vial IVPUSH 10/01/24 14:27 50 mg ONCE ONE Administration Dronedarone 400 mg 10/01/24 21:00 10/02/24 09:16 Dronedarone Hcl 400 Mg Tablet PO 400 mg BID ESTER Administration Sodium Chloride 1,000 mls @ 999 mls/hr 10/01/24 12:15 10/01/24 14:05 Ns IV 10/01/24 13:15 Infused .Q1H1M ESTER Infusion Levothyroxine Sodium 100 mcg 10/02/24 06:00 10/02/24 06:08 Levothyroxine Sodium 100 Mcg Tablet PO 100 mcg DAILY@0600 ESETR Administration Lorazepam 2 mg 10/01/24 13:19 10/01/24 13:24 Lorazepam 1 Mg Tablet PO 10/01/24 13:20 2 mg ONCE ONE Administration Lorazepam 1 mg 10/01/24 17:18 10/01/24 17:24 Lorazepam 1 Mg Tablet PO 10/01/24 17:19 1 mg ONCE ONE Administration Lorazepam 2 mg 10/02/24 05:59 10/02/24 06:08 Lorazepam 1 Mg Tablet PO 10/02/24 06:00 2 mg ONCE ONE Administration Metoprolol Succinate 50 mg 10/01/24 12:17 10/01/24 12:27 Metoprolol Succinate Er 50 Mg Tab.Er.24h PO 10/01/24 12:18 50 mg ONCE ONE Administration Protocol Metoprolol Succinate 50 mg 10/01/24 12:29 10/01/24 12:31 Metoprolol Succinate Er 50 Mg Tab.Er.24h PO 10/01/24 12:30 Not Given ONCE ONE Protocol Metoprolol Succinate 25 mg 10/02/24 09:00 10/02/24 09:14 Metoprolol Succinate Er 25 Mg Tab.Er.24h PO 25 mg DAILY ESTER Administration Protocol Mirtazapine 15 mg 10/01/24 21:00 10/01/24 20:38 Mirtazapine 15 Mg Tablet PO 15 mg BEDTIME ESTER Administration Naltrexone HCl 50 mg 10/02/24 09:00 10/02/24 09:15 Naltrexone Hcl 50 Mg Tablet PO 50 mg DAILY ESTER Administration Olanzapine 5 mg 10/01/24 22:54 10/01/24 23:04 Olanzapine 5 Mg Tablet PO 10/01/24 22:55 5 mg ONCE ONE Administration Omeprazole 20 mg 10/02/24 06:30 10/02/24 06:08 Omeprazole 20 Mg Capsule.Dr PO 20 mg DAILY@0630 ESTER Administration Venlafaxine HCl 75 mg 10/01/24 21:00 10/02/24 09:15 Venlafaxine Hcl 25 Mg Tablet PO 75 mg BID ESTER Administration Medical Decision Making Medical Decision Making [facility] Narrative: 1203 49 year old male presents on a section 12 for SI and relapsing on alcohol PE patient appears very anxious History and physical exam concerning for acute alcohol intoxication, depression, suicidal ideation. Less likely bipolar schizophrenia. I do not suspect infection or metabolic derangements Plan medical clearance evaluation by care team Differential Diagnosis Differential Diagnoses: The differential diagnosis associated with the presentation includes (History and physical exam concerning for acute alcohol intoxication, depression, suicidal ideation. Less likely bipolar schizophrenia. I do not suspect infection or metabolic derangements) Admission/Observation Consideration of admission/observation: Escalation of care including admission/observation considered Consult Healthcare Provider Management of the patient was discussed with: Senior Director [employer] (Cardiology) Lab Data [facility] Lab Attestation statement: I reviewed the patient's lab results. 10/01/24 12:40 10/01/24 14:35 Labs: Lab Results 10/01/24 10/01/24 10/01/24 Range/Units 12:40 12:41 13:31 WBC 6.0 (4.8-10.8) X10*3/uL RBC 5.15 (4.60-5.80) X10*6/uL Hgb 16.2 (14.0-18.0) g/dl Hct 44.8 (42.0-52.0) % MCV 87.0 (80.0-98.0) fL MCH 31.5 (27.0-33.0) pg MCHC 36.2 H (31.0-36.0) g/dl RDW 14.0 (11.0-16.0) % Plt Count 350 (160-400) X10*3/uL MPV 8.9 L (9.4-12.4) fL Immature Gran % (Auto) 0.5 H (0.0-0.4) % Neut % (Auto) 63.6 (45-73) % Lymph % (Auto) 27.1 (20-40) % [place] % (Auto) 7.1 (2-11) % Eos % (Auto) 0.7 (0-4) % Baso % (Auto) 1.0 (0-2) % Lymph # (Auto) 1.6 (1.2-4.9) X10*3/uL [place] # (Auto) 0.4 (0.1-1.2) X10*3/uL Eos # (Auto) 0.0 (0.0-0.4) X10*3/uL Baso # (Auto) 0.1 (0.0-0.2) X10*3/uL Abs Immat Gran (auto) 0.03 (0.00-0.03) X10*3/uL Absolute Neuts (auto) 3.8 (2.0-8.3) x10*3/uL Absolute Nucleated RBC 0.000 (0.0-0.012) X10*3/uL Nucleated RBC % (auto) 0.0 (0.0-0.2) /100WBC Sodium 145 (135-145) mmol/L Potassium 4.2 (3.3-5.1) mmol/L Chloride 110 H (96-108) mmol/L Carbon Dioxide 21 L (22-29) mmol/L Anion Gap 18 (12-20) BUN 17 H (9-16) mg/dL Creatinine 1.21 (0.5-1.4) mg/dL Estim Creat Clear Calc 85.4 Estimated GFR > 60 Random Glucose 101 (60-115) mg/dL Calcium 9.3 D (8.4-10.2) mg/dL Magnesium 2.1 (1.6-2.6) mg/dL Total Bilirubin 0.4 (0.0-1.0) mg/dL AST 41 H (5-37) U/L ALT 34 (0-40) U/L Alkaline Phosphatase 87 (39-117) U/L Troponin I High Sens < 2.7 (<3.5-35.0) ng/L Total Protein 8.3 H (6.5-8.0) g/dL Albumin 5.3 H (3.5-5.0) g/dL Urine Color Yellow Urine Appearance Clear Urine pH 5.5 (5.0-9.0) Ur Specific [place] 1.010 (1.005-1.025) Urine Protein Trace (Neg-Trace) mg/dL Urine Glucose (UA) Negative (Negative) mg/dL Urine Ketones Negative (Negative) mg/dL Urine Blood Negative (Negative) Urine Nitrite Negative (Negative) Ur Leukocyte Esterase Negative (Negative) Salicylates < 5.0 L (15-30) mg/dL Urine Opiates Screen Not Detected (Not Detect) Ur Buprenorphine Scrn Not Detected (Not Detect) ng/mL Ur Oxycodone Screen Not Detected (Not Detect) ng/mL Urine Methadone Screen Not Detected (Not Detect) ng/mL Urine Fentanyl Screen Not Detected (Not Detect) Acetaminophen < 3 (<30) mcg/mL Ur Barbiturates Screen Not Detected (Not Detect) Ur Phencyclidine Scrn Not Detected (Not Detect) Ur Amphetamines Screen Not Detected (Not Detect) U Benzodiazepines Scrn Not Detected (Not Detect) Urine Cocaine Screen Not Detected (Not Detect) U Marijuana (THC) Screen POSITIVE H (Not Detect) Ethyl Alcohol 266 mg/dL 10/01/24 Range/Units 14:35 WBC (4.8-10.8) X10*3/uL RBC (4.60-5.80) X10*6/uL Hgb (14.0-18.0) g/dl Hct (42.0-52.0) % MCV (80.0-98.0) fL MCH (27.0-33.0) pg MCHC (31.0-36.0) g/dl RDW (11.0-16.0) % Plt Count (160-400) X10*3/uL MPV (9.4-12.4) fL Immature Gran % (Auto) (0.0-0.4) % Neut % (Auto) (45-73) % Lymph % (Auto) (20-40) % [place] % (Auto) (2-11) % Eos % (Auto) (0-4) % Baso % (Auto) (0-2) % Lymph # (Auto) (1.2-4.9) X10*3/uL [place] # (Auto) (0.1-1.2) X10*3/uL Eos # (Auto) (0.0-0.4) X10*3/uL Baso # (Auto) (0.0-0.2) X10*3/uL Abs Immat Gran (auto) (0.00-0.03) X10*3/uL Absolute Neuts (auto) (2.0-8.3) x10*3/uL Absolute Nucleated RBC (0.0-0.012) X10*3/uL Nucleated RBC % (auto) (0.0-0.2) /100WBC Sodium 146 H (135-145) mmol/L Potassium 4.4 (3.3-5.1) mmol/L Chloride 112 H (96-108) mmol/L Carbon Dioxide 21 L (22-29) mmol/L Anion Gap 17 (12-20) BUN 16 (9-16) mg/dL Creatinine 1.09 (0.5-1.4) mg/dL Estim Creat Clear Calc 94.9 Estimated GFR > 60 Random Glucose 100 (60-115) mg/dL Calcium 8.9 (8.4-10.2) mg/dL Magnesium (1.6-2.6) mg/dL Total Bilirubin (0.0-1.0) mg/dL AST (5-37) U/L ALT (0-40) U/L Alkaline Phosphatase (39-117) U/L Troponin I High Sens (<3.5-35.0) ng/L Total Protein (6.5-8.0) g/dL Albumin (3.5-5.0) g/dL Urine Color Urine Appearance Urine pH (5.0-9.0) Ur Specific [place] (1.005-1.025) Urine Protein (Neg-Trace) mg/dL Urine Glucose (UA) (Negative) mg/dL Urine Ketones (Negative) mg/dL Urine Blood (Negative) Urine Nitrite (Negative) Ur Leukocyte Esterase (Negative) Salicylates (15-30) mg/dL Urine Opiates Screen (Not Detect) Ur Buprenorphine Scrn (Not Detect) ng/mL Ur Oxycodone Screen (Not Detect) ng/mL Urine Methadone Screen (Not Detect) ng/mL Urine Fentanyl Screen (Not Detect) Acetaminophen (<30) mcg/mL Ur Barbiturates Screen (Not Detect) Ur Phencyclidine Scrn (Not Detect) Ur Amphetamines Screen (Not Detect) U Benzodiazepines Scrn (Not Detect) Urine Cocaine Screen (Not Detect) U Marijuana (THC) Screen (Not Detect) Ethyl Alcohol mg/dL Independent Interpretation I performed an independent interpretation of an: EKG (EKG with atrial flutter with a rate of 144) Critical Care Time Critical Care Time Critical Care Time: Yes Total Critical Care Time: 45 Attestation: I attest to this time spent taking care of the patient, obtaining history, physical, reviewing labs, imaging, treatment of patients condition +/- specialist/hospitalist consult +/- procedure Discharge Plan Discharge Clinical Impression: Atrial flutter, Alcohol use disorder, Alcohol intoxication, Depression Patient Disposition: Home, Self-Care Instructions: Abuse of Alcohol (DC) Prescriptions: No Action Multaq 400 mg tablet 400 mg PO BID Qty: 180 3RF metoprolol succinate 50 mg tablet extended release 24 hr 25 mg PO DAILY 90 Days Qty: 45 3RF Rx Instructions: decreased dose allopurinol 100 mg tablet 100 mg PO DAILY buspirone 10 mg tablet 30 mg PO BID levothyroxine 100 mcg tablet 100 mcg PO DAILY@0600 pantoprazole 20 mg tablet,delayed release (DR/EC) 20 mg PO DAILY@0630 mirtazapine 7.5 mg tablet 15 mg PO BEDTIME venlafaxine 75 mg tablet 75 mg PO BID naltrexone 50 mg tablet 50 mg PO DAILY Referrals: Annetta Arreaga MD [Primary Care Provider, Medical] - 10/03/24 Interventions: [place]-Suicide Risk Severity Scale Last Done: 10/01/24 12:05 ED Discharge Assessment Last Done: 10/02/24 10:18 Discharge Date/Time: 10/02/24 10:20 Print Language: Ivorian
--- NOTE | 2024-10-01 12:10 | ECG_ITS ---
Test Reason : AFIB Blood Pressure : */* mmHG Vent. Rate : 144 BPM Atrial Rate : 264 BPM P-R Int : * ms QRS Dur : 74 ms QT Int : 310 ms P-R-T Axes : 256 -22 -16 degrees QTcB Int : 479 ms Atrial flutter with variable A-V block with premature ventricular or aberrantly conducted complexes Inferior infarct , age undetermined Abnormal ECG When compared with ECG of 16-Mar-2024 14:12, Atrial flutter has replaced Sinus rhythm Vent. rate has increased by 85 bpm Referred By: Generic ED Physician Electronically Signed By: MARISEL SALAZAR
[2024-10-01] MEDS: Metoprolol Succinate ER 50 MG TAB.ER.24H PO (12:27)
[2024-10-01 12:45] LABS: MANUAL DIFF FLAG NO
--- NOTE | 2024-10-01 12:47 | PC.NURSE ---
pt is changed over and belongings locked up. Communication tablet is on his person d/t need to communicate.
--- NOTE | 2024-10-01 12:47 | PC.NURSE ---
49 M presents to ED feeling hopeless, SI, S12. A+Ox4 and communicates with written tablet. RR even and unlabored, trach in place and clear, denies SOB, lung sounds clear bilat. Pt denies CP, hx afbi, elevated HR, Ecg done and pt is on monitor. Pt is very anxious, etoh hx with last drink this morning but sts he is worried about withdrawal.
[2024-10-01 12:48] LABS: Hematocrit 44.8 % (42.0-52.0); Hemoglobin 16.2 g/dl (14.0-18.0); Imm Gran Abs Auto 0.03 X10*3/uL (0.00-0.03); Imm Gran Pct Auto 0.5 % (0.0-0.4); Lymphocytes Absolute Auto 1.6 X10*3/uL (1.2-4.9); Mean Corpuscular HGB Conc 36.2 g/dl (31.0-36.0); Mean Corpuscular Hemoglobin 31.5 pg (27.0-33.0); Mean Corpuscular Volume 87.0 fL (80.0-98.0); NRBC Abs Auto 0.000 X10*3/uL (0.0-0.012); NRBC Pct Auto 0.0 /100WBC (0.0-0.2); Platelet Count 350 X10*3/uL (160-400); Red Blood Count 5.15 X10*6/uL (4.60-5.80); White Blood Count 6.0 X10*3/uL (4.8-10.8)
--- OUTSIDE RECORDS SUMMARY | 2024-10-01 13:01 | XMS_ITS | Clinical Summary ---
Author Organization [facility] Address [address] [place] [address] Care Team Providers Care Dredge Worker Name Role Phone Annetta Arreaga MD Primary Care Provider [phone] Allergies No known active allergies Medications allopurinol (ZYLOPRIM) 100 mg tablet Take 1 tablet (100 mg total) by mouth every morning. 04/23/2022 Active amphetamine-dex troamphetamine (ADDERALL) 15 MG tablet Take 1 tablet [...] 06/09/2022 Active PANTOprazole (PROTONIX) 40 MG EC tabletIndicatio ns:Gastrointest inal hemorrhage associated with anorectal source Take 1 tablet (40 mg total) by mouth 2 (two) times a day in the morning and the early evening.. Do not start before June 30, 2022. 60 tablet 06/30/2022 Active calcium carbonate (TUMS) 500 MG chewable tabletIndicatio ns:Hypocalcemia Chew 1 tablet (500 mg total) 3 [...] place to sleep or slept in a correction (including now)? No 06/29/2022 Sex and Gender Information Value Date Recorded Sex Assigned at Male 06/26/2022 10:41 PM EDT Legal Sex Male 6:25 PM EST Gender Identity Male 06/26/2022 10:41 PM EDT Sexual Orientation Heterosexual (straight) 06/26 10:41 PM EDT Last Filed Vital Signs Vital Sign Reading Time Taken Comments Blood Pressure 116/80 06/29/2022 2:38 PM EDT Pulse 84 06/29/2022 2:38 PM EDT Temperature 37.3 C (99.1 F) 06/29/2022 2:38 PM EDT Respiratory Rate 18 06/29/2022 2:38 PM EDT [...] of 3 - 19+ 3-dose series) 1996 COVID-19 Vaccine (2023-2 5 season) 2023 Influenza Vaccine 09/09/2024 Colonoscopy 06/27/2032 06/27/2022 Pneumococcal Vaccine: Pediat hans (0-5 Years) and At-Risk Patients (6 to 49 Years) Aged Out No longer eligible b ased on patient's age to [place] [id number] [facility] [place] [place] [phone] [employer] OUT OF STATE - HMO Advance Directives * Full Code (Latest Code Status on File) Date Activated Date Inactivated Comments 06/27/2022 2:36 AM Healthcare Agents on File Name Relationship Healthcare Agent Relationshi p Communication Adele Shanta Parent 4. Next of Kin ( Spouse, Adult Child, Parent, Adult Sibling, Grandparent) Omar Womack Parent 4. Next of Kin ( Spouse, Adult Child, Parent, Adult Sibling, Grandparent) Care Teams Dredge Worker Relationship Specialty Start Date End Date Annetta Arreaga MD [address] [place] [address] FABIÁN [place] [address] PCP - General Internal Medicine 06/29/22
--- OUTSIDE RECORDS SUMMARY | 2024-10-01 13:01 | XMS_ITS | Encounter Summary ---
Author Organization [employer] Address [address] [address] Care Team Providers Care Manager Life Name Role Phone Annetta Arreaga MD Primary Care Provider [phone] Reason for Visit * Reason Onset Date Comments Call Back Request 07/10/2023 Encounter Details Date Type Department Care Team ([facility] st Contact Info) Description 07/10/2023 Telephone [facility] [address] [place] [address] Annetta Arregaa MD [address], [place] [id number] Call Back Request Social History Tobacco Use [...] documented in this encounter Plan of Treatment Not on file documented as of this encounter Visit Diagnoses Not on filedocumented in this encounter Additional Health Concerns Assessment Noted Time PHQ-9 Depression Total Score: 3 11/07/19 23 1:47 PM EDT documented as of this encounter Care Teams Manager Life Relationship Specialty Start Date End Date Annetta Arreaga MD [address] [place] [id number] PCP - General Family Medicine 02/09/18 documented as of this encounter
--- OUTSIDE RECORDS SUMMARY | 2024-10-01 13:01 | XMS_ITS | Clinical Summary ---
Author Organization [facility] Address [address] [place] [address] Care Team Providers Care Stocking And Box Shop Supervisor Name Role Phone Annetta Arreaga MD Primary Care Provider [phone] Allergies No known active allergies Medications Medication [...] 79 05/26/2023 12:08 PM EDT Temperature 36.7 C (98 F) 05/26/2023 12:08 PM EDT Respiratory Rate 18 [...] 2023 02/20/2023, 05/29/2020, 04/30/2020 Influenza Vaccine (#1) 2024 3, 01/10/2021, 11/03/2018, Additional history exists RSV Ped < 20 months Aged Out No longe r eligible based on patient's age to complete this topic Care Teams Stocking And Box Shop Supervisor Relationship Specialty Start Date End Date Annetta Arreaga MD [address] [place] [address] PCP - General Pediatrics 06/20/20
--- OUTSIDE RECORDS SUMMARY | 2024-10-01 13:01 | XMS_ITS | Clinical Summary ---
Author Organization [facility] Address [address] [place] [address] Phone Care Team Providers Care Ground Water Contractor Name Role Phone Annetta Arreaga MD Primary Care Provider [phone] Allergies No known active allergies Medications allopurinoL (ZYLOPRIM) 100 mg tablet Take 1 tablet (100 mg total) by mouth 1 (one) time each day in the morning. Active busPIRone (BUSPAR) 15 mg tablet Take 1 tablet (15 mg total) by mouth 2 times daily. 4 12/10/19 25 Active doxepin (SINEquan) 25 mg capsule Take 1 capsule (25 mg total) by mouth. at bedtime 4 Active metoprolol succinate (TOPROL-XL) 50 mg 24 hr tablet Take 1 tablet (50 mg total) by mouth daily. 4 Active naltrexone (DEPADE) 50 mg tablet Take 1 tablet (50 mg total) by mouth 1 (one) time each day in the morning. Active pantoprazole (PROTONIX) 20 mg EC tablet TAKE 1 TABLET (20 MG) BY MOUTH BEFORE BREAKFAST DO NOT CRUSH, CHEW, OR SPLIT Active venlafaxine XR (EFFEXOR-XR) 75 mg 24 hr capsule TAKE 1 CAPSULE (75 MG) BY MOUTH ONCE PER DAY. DO NOT CRUSH OR CHEW. Active levothyroxine (SYNTHROID, LEVOTHROID) 100 mcg tablet TAKE 1 TABLET BY MOUTH EVERY DAY IN THE MORNING ON AN EMPTY STOMACH 90 tablet 1 5 Active Active Problems Problem Noted Date Diagnosed Date Carcinoma larynx ([facility] V24, [facility] V28) 110 07/2023 GI bleed 06/27/2022 Dehydration 11/09/2020 Attention-deficit hyperactiv ity disorder, 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 Inflammatory polyarthropathy ([facility] V24, [facility] V28) 06/22/2020 Generalized anxiety disorder 06/22/2020 Overview (01/17/2024): Last Assessment & Plan: PLAN: (check all that apply) Behavioral Health Integration Plan Patient Self Plan Patient to utilize skills provided in intervention , Patient to reach out to [facility] team as needed, Comply with medication , Patient to reach out to [facility] as needed, and self-referred to [facility] in [facility] open access clinic (M-F 10 am to 12 pm) for intake process. Paroxysmal atrial fibrillation ([facility] V24, [facility] V28) 06/22/2020 Alcohol abuse 12/01/2011 Dyslipidemia 12/01/2011 Elevated liver enzymes 12/01/2011 Depressive disorder 07/17/2011 Encounters Date Type Department Care Team Description 07/19/2024 10:30 AM EDT Office Visit [facility] Hematology Oncology [address] [place] [address] Ubaldo Tracey MD Carcinoma larynx ([facility] V24, [facility] V28) (Primary Dx); Generalized anxiety disorder from Last 3 Months Surgical History Surgery Date Site/Laterality Comments OTHER SURGICAL HISTORY 07/13/2020 PROCEDURE:LARYNGECTOMY Medical History Medical History Date Comments A-fib ([facility] V24, [facility] V28) DX:A-fib ([facility]) Gout DX:Gout Family History Medical History Relation [...] Assigned at Male 02/12/2024 4:21 PM EST Legal Sex Male 12:03 AM EST Gender Identity Male 02/12/2024 4:21 PM EST Sexual Orientation Straight 02/12/2024 4: 21 PM EST Obstetrics History Last Filed Vital Signs Vital Sign Reading Time Taken Comments Blood Pressure 111/76 07/19/2024 10:26 AM EDT Pulse 62 07/19/2024 10:26 AM EDT Temperature 36.6 C (97.8 F) 07/19/2024 10:26 AM EDT Respiratory Rate - - Oxygen Saturation 100% 07/19/2024 10:26 AM EDT Inhaled Oxygen Concentration - - Weight 87.5 kg (193 lb) 07/19/2024 10:26 AM EDT Height 177.8 cm (5' 10 ) 07/19/2024 10:26 AM EDT Body Mass Index 27.69 07/19/2024 10:26 AM EDT Plan of Treatment Upcoming Encounters Date Type Department Care Team (Late st Contact Info) Description 04/19/2025 10:30 AM EDT Office Visit [facility] Hematology Oncology [address] [place] [address] Ubaldo Tracey MD [address] [place] [id number] Health Maintenance Due Date Last Done Comments Hepatitis A Vaccines (1 of 2 - Risk 2-dose series) 1996 Hepatitis B Vaccines (1 of 3 - 19+ 3-dose series) 1996 Pneumococcal Vaccine: Pediatrics (0 to 5 Years) and At-Risk Patients (6 to 49 Years) (1 of 2 - PCV) 1996 Colorectal Cancer Screening: Colonoscopy 01/18/2022 HIV Screening 01/18/2022 Hepatitis C Screening 01/18/2022 Medicare Annual Wellness Visit 01/18/2022 Social Influencers of Health Screening 01/18/2022 COVID-19 Vaccine ( season) 2023 02/20/2023, 12/30/2021, 01/23/2021, Additional history exists Depression Screening 02/10/2024 Influenza Vaccine (#1) 2024 , 11/06/2022, 01/10/2021, Additional history exists DTaP,Tdap,and Td Vaccines (2 - Td or Tdap) 11/04/2026 11/04/2016 Cholesterol Screening (Lipid Panel) 07/25/2027 07/24/2022 HIB Vaccines Aged Out No longer eligi [...] patient's age to complete this topic Meningococcal B Vaccine Aged Out No l onger eligible based on patient's age to complete this topic RSV Immunization Patients Under 20 months Aged Out No longer eligible based on patient's age to complete this topic Varicella Vaccines Aged Out No longer eligible based on patient's age to complete this [place] [address] MEDICARE [facility] Care Teams Ground Water Contractor Relationship Specialty Start Date End Date Annetta Arreaga MD [address] [place] [phone] PCP - General Pediatrics 06/20/20
[2024-10-01 13:08] LABS: Alanine Aminotransferase 34 U/L (0-40); Albumin Level 5.3 g/dL (3.5-5.0); Alkaline Phosphatase 87 U/L (39-117); Anion Gap 18 (12-20); Aspartate Amino Transferase 41 U/L (5-37); Blood Urea Nitrogen 17 mg/dL (9-16); Calcium 9.3 mg/dL (8.4-10.2); Carbon Dioxide 21 mmol/L (22-29); Chloride 110 mmol/L (96-108); Creatinine Clr Calc Pharmacy 85.4; Estimated Glomerular Filt Rate > 60; Magnesium 2.1 mg/dL (1.6-2.6); Potassium 4.2 mmol/L (3.3-5.1); Sodium 145 mmol/L (135-145); Total Protein 8.3 g/dL (6.5-8.0)
[2024-10-01 13:08] LABS: Acetaminophen LAB < 3 mcg/mL (<30); Salicylate < 5.0 mg/dL (15-30)
[2024-10-01 13:46] LABS: Appearance Urine Clear; Glucose Urine UA Negative (Negative); PH 5.5 (5.0-9.0); Specific Gravity - Urine 1.010 (1.005-1.025)
--- NOTE | 2024-10-01 13:54 | PC.NURSE ---
appears like the pt is currenly in normal sinus, hr rate at 89, provider aware and plan to obtain a new ekg
--- NOTE | 2024-10-01 13:54 | ECG_ITS ---
Test Reason : RHYTHM CHANGE Blood Pressure : */* mmHG Vent. Rate : 85 BPM Atrial Rate : 85 BPM P-R Int : 204 ms QRS Dur : 90 ms QT Int : 352 ms P-R-T Axes : 10 -17 7 degrees QTcB Int : 418 ms Normal sinus rhythm Normal ECG When compared with ECG of 01-Oct-2024 12:14, Sinus rhythm has replaced Atrial flutter Vent. rate has decreased by 59 bpm Referred By: Lenny Sandoval Electronically Signed By: MARISEL SALAZAR
[2024-10-01 14:34] LABS: Troponin-I High Sensitivity < 2.7 ng/L (<3.5-35.0)
[2024-10-01 15:00] LABS: Anion Gap 17 (12-20); Blood Urea Nitrogen 16 mg/dL (9-16); Calcium 8.9 mg/dL (8.4-10.2); Carbon Dioxide 21 mmol/L (22-29); Chloride 112 mmol/L (96-108); Creatinine Clr Calc Pharmacy 94.9; Estimated Glomerular Filt Rate > 60; Potassium 4.4 mmol/L (3.3-5.1); Sodium 146 mmol/L (135-145)
[2024-10-01 16:07] LABS: Cannabinoid Screen Urine POSITIVE (Not Detect)
--- NOTE | 2024-10-01 16:45 | PC.NURSE ---
pharmacy called to request med req.
--- NOTE | 2024-10-01 17:10 | PC.NURSE ---
pt is reporting feeling really anxious again
--- NOTE | 2024-10-01 18:05 | PHA.MEDREC ---
Pharmacy Consult ? Medication Reconciliation Pharmacy has completed the medication reconciliation. Med rec completed with list from family member, but went to speak to patient to clarify the metoprolol dosing and Xarelto. Despite recent claim HX pt noted the metoprolol dose was decreased not increased, and he said he stopped the Xarelto (LF 04/08 x 90 DS)
--- NOTE | 2024-10-01 20:42 | PC.NURSE ---
this rn assumed care of pt ! 1899. pt requesting additional dose of po ativan for anxiety this rn made dr marinelli aware of pt request order placed for po Valium pt medicated according to quintin adams remains in place awaiting care team consult
--- NOTE | 2024-10-01 23:15 | PC.NURSE ---
late entry- pt continues to report anxiety. ciwa 5 dr marinelli made aware pt medicated according to mar
[2024-10-02 05:32] VITALS: BP 133/91; PULSE 68; RESP 16; TEMP 36.9; O2SAT 98
[2024-10-02 05:44] VITALS: BP 124/84; PULSE 61; RESP 16; TEMP 36.9; O2SAT 98
[2024-10-02 09:13] VITALS: BP 134/90; PULSE 84; RESP 18; O2SAT 97
[2024-10-02 09:14] VITALS: BP 134/90; PULSE 84
[2024-10-02] MEDS: Metoprolol Succinate ER 25 MG TAB.ER.24H PO (09:14)
[2024-10-02 10:18] VITALS: BP 137/89; PULSE 81; RESP 18; TEMP 37; O2SAT 96
== END 2024-10-02 10:20 | disposition home or self-care (01) ==
PROVIDERS: Physician Assistant; Emergency Provider Emergency Medicine; PCP Pediatrics
DX: I48.92 Unspecified atrial flutter (principal); F10.129 Alcohol abuse with intoxication, unspecified; I44.0 Atrioventricular block, first degree; R45.851 Suicidal ideations; F43.20 Adjustment disorder, unspecified; Y90.8 Blood alcohol level of 240 mg/100 ml or more; Z79.899 Other long term (current) drug therapy; Z51.81 Encounter for therapeutic drug level monitoring; Z87.891 Personal history of nicotine dependence
CPT/HCPCS: 36415; 80048; 80053; 80143; 80179; 80307; 81003; 83735; 84484; 85025; 93005; 96360; 99285; J1200; S9485

== ENCOUNTER → 2024-10-01 12:10 | Outpatient (BNV) | payer MEDICARE, SELFPAY | PROVIDERS: Emergency Provider Emergency Medicine; PCP Pediatrics; Visit Provider Internal Medicine | DX: I48.92 Unspecified atrial flutter (principal); I44.0 Atrioventricular block, first degree; Z13.6 Encounter for screening for cardiovascular disorders | CPT/HCPCS: 93010 ==

== ENCOUNTER 2024-11-15 12:35 | Outpatient (AMB) | payer MEDICARE, SELFPAY ==
--- NOTE | 2024-11-15 12:46 | A.OFFVIS_ITS ---
Vital Signs 11/15/24 12:48 Height 5 ft 8 in Weight 211 lb 10.3 oz BMI 32.2 BP 120/80 Blood Pressure Location Lt brachial Position Sitting Pulse 68 Intake Visit Reasons: 6 mth f/up w/ ekg Intake Note: 6 month follow-up with ekg feeling good Allergies No Known Allergies (No Known Allergies*) Allergy (Verified 10/01/24 11:59) Medication List - Last Reconciled 11/15/24 by Filemon Salazar MD allopurinol 100 mg PO DAILY buspirone 30 mg PO BID dronedarone (Multaq) 400 mg PO BID levothyroxine 100 mcg PO DAILY@0600 metoprolol succinate ER 25 mg (1/2 x 50 mg) PO DAILY 90 days mirtazapine 15 mg PO BEDTIME naltrexone 50 mg PO DAILY pantoprazole 20 mg PO DAILY@0630 venlafaxine 75 mg PO BID HPI Comments Details: Sreedhar comes for a 6 months follow-up. He has been doing very well from cardiac perspective. He denies any prolonged irregular heartbeat or palpitations. Denies any fast heart rate. Denies any worsening shortness of breath, chest pain. No orthopnea, PND, leg edema. Does not drink alcohol anymore. Blood pressures been well controlled. No neurologic events. [facility] Medical History Atrial fibrillation On beta ana at home History of drug abuse History of alcohol abuse Essential hypertension Gout Dyslipidemia History of throat cancer Depression Anxiety Atrial flutter Chronic anticoagulation PAF (paroxysmal atrial fibrillation) Surgical History Hx of colonoscopy with polypectomy Hx of arthroscopic knee surgery History of tonsillectomy H/O laryngectomy Family History Father HTN (hypertension) Arthritis of knee Mother Arthritis of knee Social History Alcohol intake: current Alcohol intake frequency: 3 or more drinks per day Alcohol type: hard liquor Patient Tobacco Use Status: Former Tobacco user Cigarettes Per Day: 10 Review of Systems Const Denies chills, Denies fatigue, Denies fever(s), Denies frequent falls, Denies weakness, Denies weight gain and Denies weight loss ENT Denies dizziness Card Denies chest pain, Denies leg edema, Denies lightheadedness, Denies palpitations, Denies dyspnea, Denies dyspnea on exertion, Denies orthopnea and Denies other (loss of consciousness) Resp Denies cough, Denies dyspnea and Denies dyspnea on exertion GI Denies hematochezia and Denies change in stool character Musc Denies abnormal gait, Denies muscle weakness, Denies numbness, Denies radiating pain into limb and Denies tingling Neuro Denies abnormal gait, Denies dizziness, Denies frequent falls, Denies numbness, Denies tingling and Denies weakness Endo Denies fatigue and Denies palpitations Physical Exam Vital Signs: Last Vital Signs Pulse 68 11/15/24 12:48 BP 120/80 11/15/24 12:48 BMI result Body Mass Index 32.2 Const General: cooperative, comfortable, alert and awake Nutritional Appearance: underweight Orientation/consciousness: patient oriented x3 Limitations: no limitations Neck Neck: Yes trachea midline, Yes no JVD and Yes other (Tracheostomy tube in place) Resp Effort & Inspection: normal respiratory effort Auscultation: clear to auscultation bilaterally Cardio Jugular venous distension: no JVD Palpation: normal PMI Rate: tachycardic Rhythm: abnormal rhythm irregularly irregular Heart sounds: S1 normal heart sound present, S2 normal heart sound present, no click, no gallops and no murmurs GI Auscultation: normal bowel sounds Skin General skin exam: no rashes or lesions noted Neuro General: patient oriented x3 and no focal motor deficits Extrem General: Yes no clubbing, cyanosis or edema Psych Appearance: grossly normal Office Procedures EKG Details: EKG shows normal sinus rhythm with normal EKG [id number], Complete Assessment & Plan Assessment & Plan (1) PAF (paroxysmal atrial fibrillation): Comment: follows w/[facility]-last appt 07/2021 with a 1 year follow-up scheduled for 07/22/22 Code(s): I48.0 - Paroxysmal atrial fibrillation Category: Medical Plan: Paroxysmal atrial fibrillation in the setting of alcohol use and noncompliance. Has done very well with rhythm control approach with current therapy will Multaq and metoprolol and has maintain rhythm. Continue pursue rhythm control approach. Continue Multaq therapy. Will need EKGs every 3 months. Continue metoprolol therapy avoidance of stimulants especially alcohol was discussed. He understands. No indication for oral anticoagulation therapy. (2) Essential hypertension: Code(s): I10 - Essential (primary) hypertension Category: Medical Plan: Hypertension in the past in the setting of alcohol use. Currently blood pressures been well controlled without alcohol use and current metoprolol therapy. Low-salt diet was discussed. Advised to participate in heart healthy lifestyle with regular physical activity and weight loss. Will follow up in the clinic every 3 months for EKG in 1 year with me. Thank you for allowing me to partake in his care Coding Level of Care Code Est Pt Level 4 (99703) Complex EM visit Add On G2211 Diagnoses PAF (paroxysmal atrial fibrillation) I48.0 Essential hypertension I10 CPT Codes EKG - CPT: 84435-[id number], Complete ([id number])
[2024-11-15 12:48] VITALS: BP 120/80; PULSE 68; BMI 32.2
--- OUTSIDE RECORDS SUMMARY | 2024-11-15 15:25 | XMS_ITS ---
Author Organization [facility] Address [address] [place] [address] Phone Care Team Providers Care Reporter Anchor Name Role Phone Annetta Arreaga MD Primary Care Provider [phone] Active Problems Problem Noted Date Diagnosed Date Carcinoma larynx ([facility] V24, [facility] V28) 07/2023 GI bleed 06/27/2022 Dehydration 11/09/2020 Attention-deficit hyperactiv ity disorder, 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 Inflammatory polyarthropathy ([facility] V24, [facility] V28) 06/22/2020 Generalized anxiety disorder 06/22/2020 Overview (01/17/2024): Last Assessment & Plan: PLAN: (check all that apply) Behavioral Health Integration Plan Patient Self Plan Patient to utilize skills provided in intervention , Patient to reach out to [facility] team as needed, Comply with medication , Patient to reach out to [facility] as needed, and self-referred to [facility] in [place] for open access clinic (M-F 10 am to 12 pm) for intake process. Paroxysmal atrial fibrillation ([facility] V24, [facility] V28) 06/22/2020 Alcohol abuse 12/01/2011 Dyslipidemia 12/01/2011 Elevated liver enzymes 12/01/2011 Depressive disorder 07/17/2011 Current Treatment and Therapy Plans CENTRAL VENOUS ACCESS ( CVA ) MAINTENANCE / BLOOD DRAW / CATHETER CLEARANCE / DRESSING CHANGE / FLUSH* Plan Start Date:12/16/2023 Plan Provider:Ubaldo Tracey MD Linked Problems Carcinoma larynx ([facility] V2 4, [facility] V28) Treatment Medications No medications scheduled. Past Treatment and Therapy Plans No past plan information found. Lifetime Dose Tracking * Chemical Lifetime Dose Automatic Entry Manual Entr y Fluoro Time 0.2 minutes 0.2 minutes 0 minutes Dose Area Product 18 mGy-cm2 18 mGy-cm2 0 mGy-cm2
--- OUTSIDE RECORDS SUMMARY | 2024-11-15 15:25 | XMS_ITS | Clinical Summary ---
Author Organization [employer] Address [address] [facility] 7t [place] [address] Care Team Providers Care Freight Tallier Name Role Phone Annetta Arreaga MD Primary Care Provider [phone] Allergies No known active allergies Medications * This document contains information received from the source organization and may not represent a complete record from that organization. metoprolol succinate XL (Toprol-XL) 50 MG 24 [...] 90 tablet 3 03/03/19 25 026 Active venlafaxine (Effexor) 75 MG tablet Take 1 tablet (75 mg) by mouth 2 times daily. 180 tablet 2 05/04/19 25 025 Active mirtazapine (Remeron) 15 MG tablet Take 1 tablet (15 mg) by mouth at bedtime. 30 tablet 5 08/05/19 25 Active levothyroxine (Synthroid, Levoxyl) 100 MCG tablet Take 1 tablet (100 mcg) by mouth in the morning. 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, unspecified laterality TAKE 1 TABLET BY MOUTH EVERY DAY IN THE MORNING 90 tablet 3 09/01/19 24 025 Discontinued Active Problems Problem Noted Date Diagnosed Date Tracheostomy in place ([facility]) 07/28/2023 Severe episode of recurrent major depressive disorder, without psychotic features ([facility]) 07/28/2023 Assessment & Plan (08/28/2023 11:00 AM EDT): PLAN: (check all that apply) Behavioral Health Integration Plan Patient Self Plan Patient to utilize skills provided in intervention , Patient to reach out to [facility] team as needed, Comply with medication , Patient to reach out to [facility] as needed, and self-referred to [facility] in [place] for open access clinic (M-F 10 am [...] very depressed but willing to re-engaged in services. Sreedhar was engaged with open-ended questions and was invited to explore triggers associated with present symptoms. PLAN: (check all that apply) Continue with current services (defined as services in the past 12 months) Behavioral Health Integration Plan Internal Follow up with [facility] Patient Self Plan Patient to utilize skills provided in intervention , Patient to reach out to [facility] team as needed, Comply with medication , Patient to engage in OP therapy , and Patient to reach out to [facility] as needed. Pt received a call from [facility] to start services for OP individual therapy and psychiatry. clinician will see patient during his next medical appt to do follow-up on sxs and intervention. Paroxysmal atrial fibrillation (CMS/HCC) 024 Chronic gouty arthritis 02/07/2022 Squamous cell carcinoma of larynx (CMS/HCC) 01/11 Anxiety disorder, unspecified 06/22/2020 Generalized anxiety disorder 06/22/2020 Assessment & Plan (08/28/2023 10:59 AM EDT): PLAN: (check all that apply) Behavioral Health Integration Plan Patient Self Plan Patient to utilize skills provided in intervention , Patient to reach out to [facility] team as needed, Comply with medication , Patient to reach out to [facility] as needed, and self-referred to [facility] in [facility] open access clinic (M-F 10 am [...] Health Integration Plan Internal Follow up with [facility] Patient Self Plan Patient to utilize skills provided in intervention , Patient to reach out to [facility] team as needed, Comply with medication , Patient to engage in OP therapy , and Patient to reach out to [facility] as needed. Pt received a call from [facility] to start services for OP individual therapy and psychiatry. clinician will see patient during his next medical appt to do follow-up on sxs and intervention. 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, unspecified laterality 10/03/2024 Telephone [facility] [address] [place] [address] Annetta Arreaga MD Nurse Triage 10/01/2024 Orders Only GENERIC EXTERNAL DATA DEPARTMENT Provider, Generic External Data 09/10/2024 Refill [facility] [address] [place] [address] Annetta Arreaga MD from Last 3 Months Immunizations Immunization Administration Dates Next Due Influenza injectable quadriv [...] Reading Time Taken Comments Blood Pressure 130/90 08/04/2024 11:25 AM EDT Pulse 80 08/04/2024 11:25 AM EDT Temperature 36.4 C (97.5 F) 08/04/2024 11:25 AM EDT Respiratory Rate 20 08/04/2024 11:25 AM EDT Oxygen Saturation 99% 05/03/2024 11:29 AM EDT Inhaled Oxygen Concentration - - Weight 88.5 kg (195 lb) 08/04/2024 11:25 AM EDT Height 185.4 cm (6' 1 ) 08/04/2024 11:25 AM EDT Body Mass Index 25.73 08/04/2024 11:25 AM EDT Plan of Treatment Health Maintenance Due Date Last Done Comments CT Colonography 1977 FIT DNA/Cologuard 1977 FIT 1977 FOBT 1977 HIV Screening 1977 Sigmoidoscopy 1977 Family Planning (PISQ) 1992 Hepatitis B Vaccines (1 of 3 - 19+ 3-dose series) 1996 DTaP/Tdap/Td Vaccines (1 - Tdap) 11/05/2016 11/04/2016 Depression Monitoring 01/27/2024 07/28/2023, 024 SDOH Screening 08/18/2024 08/19/2023 COVID-19 Vaccine ( season) 2024 02/20/2023, 12/30/2021, 01/23/2021, Additional history exists Influenza Vaccine (#1) 2024 , 11/06/2022, 01/10/2021, Additional history exists Alcohol/Substance Use Screening 05/03/2025 05/03/2024 Disability Screening 05/03/2025 05/03/2024 Tobacco Screening 08/04/2025 08/04/2024 Zoster Vaccines (1 of 2) 2027 Colonoscopy 06/27/2027 Colorectal Cancer Screening 06/27/2027 Lipid Panel 07/25/2027 07/24/2022 RSV Patients and Patients Aged 60 years or older (1 - 1-dose 75+ series) 2052 Hepatitis C Screening Completed 12/04/2022 HIB Vaccines Aged Out No longer eligi ble based on patient's age to complete this topic HPV Vaccines Aged Out No longer eligi ble based on patient's age to complete this topic Hepatitis A Vaccines Aged Out No long er eligible based on patient's age to complete [...] Years) and At-Risk Patients (6 to 49) Years Aged Out No longer eligible based on patient's age to complete this topic RSV under 20 months Aged Out No longe r eligible based on patient's age to complete this topic Rotavirus Vaccines Aged Out No longer eligible based on patient's age to complete this topic Procedures Procedure Name Priority Date/Time Associated Diagnosis Comments BASIC METABOLIC PANEL Routine 10/01/2024 2:35 PM EDT URINALYSIS WITH REFLEX MICROSCOPIC Routine 10/01/2024 1:34 PM EDT DRUG MONITOR, PANEL 1, SCREEN, URINE Routine 10/01/2024 1:31 PM EDT HEPATITIS PANEL, GENERAL Routine 12/04/2022 3:41 PM EDT Elevated liver enzymes LIPID PANEL, STANDARD Routine 07/24/2022 8:39 AM EDT 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9 [facility] Comment:eGFR (calculated fro m the MDRD study equation) and eCrCl(calculated from the Cockcroft-Gault equation) are based ondifferent parameters and may not yield comparable results.If eCrCl result is absurd, please check patient'sheight/weight. Estimated Glomerular Filt Rate >60 [facility] Comment:Chronic Kidney Disea se: Estimated GFR < 60 mL/min/1.41y2Ialkwr Kidney Disease: Estimated GFR < 15 mL/min/1.73m2 Glucose 100 60 - 115 mg/dL [facility] Calcium 8.9 8.4 - 10.2 mg/dL [facility] 10/01/2024 2:35 PM EDT 10/01/2024 2:43 PM EDT us Generic External Data Provider LAB BLOOD ORDERAB LES Final Result [facility] [address] [place] [address] [phone] * Urinalysis w/reflex microscopic (10/01/2024 1:34 PM EDT) Color Urine Yellow [facility] Appearance Urine Clear [facility] PH 5.5 5.0 - 9.0 [facility] Glucose Urine UA Negative Negative mg/dL [facility] Urine Blood Negative Negative [facility] Specific [place] - Urine 1.010 1.005 - 1.025 [facility] Urine Protein Trace Neg-Trace mg/dL [facility] Urine Ketones Negative Negative mg/dL [facility] Nitrite Urine Negative Negative [facility] Leukocyte Esterase Urine Negative Negative [facility] 10/01/2024 1:34 PM EDT 10/01/2024 1:41 PM EDT Narrative [facility] - 10/01/2024 1:48 PM EDT [id number], Clean Catch us Generic External Data Provider LAB URINE ORDERAB LES Final Result [facility] [address] [place] [phone] * (ABNORMAL) Drug Monitoring, Panel 1, Screen, Urine (10/01/2024 1:31 PM EDT) Pathologist [facility] Opiate Screen Urine Not Detected Not Detect [facility] Comment:Opiate cut-off is 30 0 ng/mL.Positive results are unconfirmed and should not be used fornon-medical purposes. Barbiturates, Urine Not Detected Not Detect [facility] Comment:Barbiturate cut-off is 200 ng/mL.Positive results are unconfirmed and should not be used fornon-medical purposes. Phencyclidine Screen Urine Not Detected Not Detect [facility] Comment:Phencyclidine cut-of f is 25 ng/mL.Positive results are unconfirmed and should not be used fornon-medical purposes. Amphetamine Screen Urine Not Detected Not Detect [facility] Comment:Amphetamine cut-off is 1000 ng/mL.Positive results are unconfirmed and should not be used fornon-medical purposes. Benzodiazepines Screen Urine Not Detected Not Detect [facility] Comment:Benzodiazepine cut-o ff is 200 ng/mL.Positive results are unconfirmed and should not be used fornon-medical purposes. Cocaine Screen Urine Not Detected Not Detect [facility] Comment:Cocaine cut-off is 3 00 ng/mL.Positive results are unconfirmed and should not be used fornon-medical purposes. Cannabinoid Screen Urine POSITIVE(A) Not Detect [facility] Comment:Cannabinoid cut-off is 50 ng/mL.Positive results are unconfirmed and should not be used fornon-medical purposes. Methadone Screen, Urine Not Detected Not Detect ng/mL [facility] Comment:Methadone cut-off is 300 ng/mL.Positive results are unconfirmed and should not be used fornon-medical purposes. FENTANYL URINE Not Detected Not Detect [facility] Comment:Fentanyl cut-off is 1 ng/mL.Positive results are unconfirmed and should not be used fornon-medical purposes. Oxycodone Urine Screen Not Detected Not Detect ng/mL [facility] Comment:Oxycodone cut-off is 100 ng/mL.Positive results are unconfirmed and should not be used fornon-medical purposes. Buprenorphine Screen Not Detected Not Detect ng/mL [facility] Comment:Buprenorphine cut-of f is 5 ng/mL.Positive results are unconfirmed and should not be used fornon-medical purposes. 10/01/2024 1:31 PM EDT 10/01/2024 3:53 PM EDT us Generic External Data Provider LAB URINE ORDERAB LES Final Result Performing Organization Address [facility] de Phone Number [facility] [address] [place] [phone] * Hepatitis Panel, General (12/04/2022 3:41 PM EDT) Hepatitis A IgM Nonreactive Nonreactive [facility] Comment:IgM antibodies to WELCH V not detected; does not exclude earlyacute or recovered HAV infection. ~Hepatitis B Surface Antibody NONREACTIVE Nonreactive [facility] Comment:Nonreactive: < 8.00 mIU/mL Hepatitis B Core Antibody Nonreactive Nonreactive [facility] Hepatitis C Antibody Nonreactive Nonreactive [facility] Comment:Antibodies to HCV no t detected; does not exclude early acuteHCV infection. Hepatitis B Surface Ag Negative Negative [facility] Blood 12/04/2022 3:41 PM EDT 12/04/2022 5:39 PM EDT us Annetta Arreaga MD LAB BLOOD ORDERABLES Final Re sult Performing Organization Address [facility] Co de Phone Number [facility] [address] [place] [phone] * (ABNORMAL) Lipid Panel, Standard (07/24/2022 8:39 AM EDT) Pathologist [facility] Cholesterol, Total 379(H) <200 mg/dL [facility] [place] [employer] HDL Cholesterol 54 > OR = 40 mg/dL [facility] [place] [facility] Triglycerides 127 <150 mg/dL [facility] [place] [facility] LDL Cholesterol 298(H) mg/dL (calc) [facility] [place] [facility] Comment: LDL-C levels > or = 190 [...] about testing for familial hypercholesterolemia, please call [employer] [facility] at [phone]. Fabian Enriquez, et al. J National Lipid Association Recommendations for Patient-Centered Management of Dyslipidemia: Part 1 Journal of Clinical Lipidology 2015;9(2), 129-169. Adrianne Celaya. et al. (2014). Homozygous familial hypercholesterolaemia: new insights and guidance for clinicians to improve detection and clinical management. Heart Journal, 35(32), 9856-3659. Reference range: <100 Desirable range <100 mg/dL for primary prevention; <70 mg/dL for patients with CHD or diabetic patients with > or = 2 CHD risk factors. LDL-C is now calculated using the Taran-Luis calculation, which is a validated novel method providing better accuracy than the Friedewald equation in the estimation of LDL-C. Taran STEELE et al. WINSTON. 2013;310(19): 7784-5370 (http://education.Telesocial.Seventh Continent/faq/DUL343) Chol/HDLC Ratio 7.0(H) <5.0 (calc) [facility] [place] [facility] Non-HDL Cholesterol 325(H) <130 mg/dL (calc) [facility] [place] [facility] Comment: Non-HDL level > or = 220 [...] 07/25/2022 6:03 AM EDT FASTING:YES FASTING: YES Annetta Arreaga MD LAB BLOOD ORDERABLES Final Re sult [facility] [address], [place] [address] [facility] [address] [place] [address] from Last 3 Months or Most Recently Relevant to [place] [address] [place] [address] [place] [phone] [facility] [employer]EX CARE Care Teams Freight Tallier Relationship Specialty Start Date End Date Annetta Arreaga MD [address] [place] [phone] PCP - General Family Medicine 02/09/18
--- OUTSIDE RECORDS SUMMARY | 2024-11-15 15:25 | XMS_ITS | Encounter Summary ---
Author Organization [employer] Address [address] [facility] 7t [place] [address] Care Team Providers Care Spring Coiler Hand Name Role Phone Annetta Arreaga MD Primary Care Provider Encounter Details Date Type Department Care Team ([facility] st Contact Info) Description 08/05/2023 Orders Only [facility] [address] [place] [address] Provider, Historical, Social History Tobacco Use Types Packs/Day Years [...] as of this encounter Plan of Treatment Not on file documented as of this encounter Procedures Procedure Name Priority Date/Time Associated Diagnosis Comments CT SOFT TISSUE NECK W CONTRAST Routine 08/04/2023 9:39 AM EDT documented in this encounter Results * CT SOFT TISSUE NECK W CONTRAST (08/04/2023 9:39 AM EDT) Anatomical Region Laterality Modality Computed Tomogra phy Historical Provider MD FINE CT PROCEDURES Final R esult documented in this encounter Visit Diagnoses Not on filedocumented in this encounter Additional Health Concerns Assessment Noted Time PHQ-9 Depression Total Score: 18 024 11:38 AM EDT documented as of this encounter Care Teams Spring Coiler Hand Relationship Specialty Start Date End Date Annetta Arreaga MD [address] [place] [address] PCP - General Family Medicine 02/09/18 documented as of this encounter
--- OUTSIDE RECORDS SUMMARY | 2024-11-15 15:25 | XMS_ITS | Encounter Summary ---
Author Organization [employer] Address [address] [place] [address] Care Team Providers Care Claim Administrator Name Role Phone Annetta Arreaga MD Primary Care Provider Reason for Visit * Reason Onset Date Comments Med Refill 11/24/2022 Encounter Details Date Type Department Care Team ([facility] st Contact Info) Description 11/24/2022 Telephone [facility] [address] [place] [address] Annetta Arreaga MD [address] [place] [address] Med Refill Social History Tobacco Use Types [...] Thank you * Telephone Encounter - Patrizia Cerda - 11/24/2022 10:00 AM EDT Tc from mom requesting refill on amphetamine-dextroamphetamine (Adderall) 15 MG tablet to be sent to [facility]/pharmacy #[id number] - [place] - [address] [place] [address]. States therapist who prescribes medication is retired and pt is waiting on a new therapist but will be about a four week wait. Any questions, please contact mom at [phone] documented in this encounter Plan of Treatment Not on file documented as of this encounter Visit Diagnoses Not on filedocumented in this encounter Additional Health Concerns Assessment Noted Time PHQ-9 Depression Total Score: 3 11/07/19 23 1:47 PM EDT documented as of this encounter Care Teams Claim Administrator Relationship Specialty Start Date End Date Annetta Arreaga MD [address] [place] [phone] PCP - General Family Medicine 02/09/18 documented as of this encounter
--- OUTSIDE RECORDS SUMMARY | 2024-11-15 15:25 | XMS_ITS | Clinical Summary ---
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 ([facility] V24, [facility] V28) 06/22/2020 Generalized anxiety disorder 06/22/2020 Overview (01/17/2024): Last Assessment & Plan: PLAN: (check all that apply) Behavioral Health Integration Plan Patient Self Plan Patient to utilize skills provided in intervention , Patient to reach out to [facility] team as needed, Comply with medication , Patient to reach out to [facility] as needed, and self-referred to [facility] in [facility] open access clinic (M-F 10 am to 12 pm) for intake process. Paroxysmal atrial fibrillation ([facility] V24, [facility] V28) 06/22/2020 Alcohol abuse 12/01/2011 Dyslipidemia 12/01/2011 Elevated liver enzymes 12/01/2011 Depressive disorder 07/17/2011 Surgical History Surgery Date Site/Laterality Comments OTHER SURGICAL HISTORY 07/13/2020 PROCEDURE:LARYNGECTOMY Medical History Medical History Date Comments A-fib ([facility] V24, [facility] V28) DX:A-fib ([facility] Gout DX:Gout Family History Medical History Relation [...] Description 04/19/2025 10:30 AM EDT Office Visit [facility] Hematology Oncology [address] [place] [address] Ubaldo Tracey MD [address] [place] [address] Health Maintenance Due Date Last Done Comments Colorectal Cancer Screening: Colonoscopy 1977 Hepatitis A Vaccines (1 of 2 - Risk 2-dose series) 1996 Hepatitis B Vaccines (1 of 3 - 19+ 3-dose series) 1996 Pneumococcal Vaccine: Pediatrics (0 to 5 Years) and At-Risk Patients (6 to 49 Years) (1 of 2 - PCV) 1996 HIV Screening 01/18/2022 Hepatitis C Screening 01/18/2022 Medicare Annual Wellness Visit 01/18/2022 Social Influencers of Health Screening 01/18/2022 Depression Screening 02/10/2024 COVID-19 Vaccine ( season) 2024 02/20/2023, 12/30/2021, 01/23/2021, Additional history exists Influenza Vaccine (#1) 2024 , 11/06/2022, 01/10/2021, Additional history exists DTaP,Tdap,and Td Vaccines (2 - Td or Tdap) 11/04/2026 11/04/2016 Cholesterol Screening (Lipid Panel) 07/25/2027 07/24/2022 RSV Immunization Adult Patients (1 - 1-dose 75+ series) 2052 HIB Vaccines Aged Out No longer eligi [...] age to complete this [place] [address] MEDICARE [facility] Care Teams Director Counseling Bureau Relationship Specialty Start Date End Date Annetta Arreaga MD [address] [place] [phone] PCP - General Pediatrics 06/20/20
--- OUTSIDE RECORDS SUMMARY | 2024-11-15 15:25 | XMS_ITS | Encounter Summary ---
Author Organization [employer] Address [address] [address] Care Team Providers Care Contractor Broomcorn Threshing Name Role Phone Annetta Arreaga MD Primary Care Provider [phone] Reason for Visit * Reason Onset Date Comments Call Back Request 07/10/2023 Encounter Details Date Type Department Care Team ([facility] st Contact Info) Description 07/10/2023 Telephone [facility] [address] [place] [address] Annetta Arreaga MD [address] [place], [place] [phone] Call Back Request Social History Tobacco Use [...] documented as of this encounter Care Teams Contractor Broomcorn Threshing Relationship Specialty Start Date End Date Annetta Arreaga MD [address] [place] [phone] PCP - General Family Medicine 02/09/18 documented as of this encounter
--- OUTSIDE RECORDS SUMMARY | 2024-11-15 15:25 | XMS_ITS | Encounter Summary ---
Author Organization [employer] Address [address] [place] [address] Care Team Providers Care Crozer Operator Name Role Phone Annetta Arreaga MD Primary Care Provider [phone] Reason for Visit * Reason Comments Med Refill Encounter Details Date Type Department Care Team ([facility] st Contact Info) Description 03/01/2024 Refill [facility] [address] [place], [place] [phone] Annetta Arreaga MD [address] [place] [address] Social History Tobacco Use Types Packs/Day Years [...] documented as of this encounter Care Teams Crozer Operator Relationship Specialty Start Date End Date Annetta Arreaga MD [address] [place] [address] PCP - General Family Medicine 02/09/18 documented as of this encounter
--- OUTSIDE RECORDS SUMMARY | 2024-11-15 15:25 | XMS_ITS | Clinical Summary ---
Author Organization Formerly [facility] Address [address] [place] [address] Care Team Providers Care Overlock Sewing Machine Operator Name Role Phone Annetta Arreaga MD Primary Care Provider [phone] Allergies No known active allergies Medications allopurinol [...] place to sleep or slept in a senior living (including now)? No 06/29/2022 Sex and Gender [...] - 19+ 3-dose series) 1996 Influenza Vaccine 09/09/2024 COVID-19 Vaccine (2023-2 5 season) 2024 Colonoscopy 06/27/2032 06/27/2022 Pneumococcal Vaccine: Pediat hans (0-5 Years) and At-Risk Patients (6 to 49 Years) Aged Out No longer eligible b ased on patient's age to [place] [id number] [facility] [place] [id number] BLUE CROSS OUT OF STATE - HMO [...] Child, Parent, Adult Sibling, Grandparent) Care Teams Overlock Sewing Machine Operator Relationship Specialty Start Date End Date Annetta Arreaga MD [address] [place] [address] [place]N [place] [address] PCP - General Internal Medicine 06/29/22
--- OUTSIDE RECORDS SUMMARY | 2024-11-15 15:26 | XMS_ITS | Encounter Summary ---
Author Organization [employer] Address [address] [place] [address] Care Team Providers Care Table Cover Folder Name Role Phone Annetta Arreaga MD Primary Care Provider Encounter Details Date Type Department Care Team ([facility] st Contact Info) Description 06/21/2024 Orders Only [facility]S [address] [place], [place] [id number] Provider, MD Alexander Social History Tobacco Use Types Packs/Day Years [...] CT SOFT TISSUE NECK W CONTRAST Routine 06/20/2024 10:48 AM EDT documented in this encounter Results * CT Soft Tissue Neck w/ Contrast (06/20/2024 10:48 AM EDT) Anatomical Region Laterality Modality Head, Neck Computed Tomogra phy us Historical Provider MD FINE CT PROCEDURES Final R esult documented in this encounter Visit Diagnoses Not on filedocumented in this encounter Additional Health Concerns Assessment Noted Time PHQ-9 Depression Total Score: 18 024 11:38 AM EDT documented as of this encounter Care Teams Table Cover Folder Relationship Specialty Start Date End Date Annetta Arreaga MD [address] [place] [address] PCP - General Family Medicine 02/09/18 documented as of this encounter
--- OUTSIDE RECORDS SUMMARY | 2024-11-15 15:26 | XMS_ITS | Clinical Summary ---
Author Organization [facility] Address [address] [place] [address] Care Team Providers Care Circulation Crew Leader Name Role Phone Annetta Arreaga MD Primary Care Provider [phone] Allergies No known active allergies Medications Medication [...] Screening (Colonoscopy) 2022 COVID-19 Vaccine ( season) 2024 02/20/2023, 05/29/2020, 04/30/2020 Influenza Vaccine (#1) 2024 3, 01/10/2021, 11/03/2018, Additional history exists RSV Ped < 20 months Aged Out No longe r eligible based on patient's age to complete this topic Care Teams Circulation Crew Leader Relationship Specialty Start Date End Date Annetta Arreaga MD [address] [place] [address] PCP - General Pediatrics 06/20/20
--- OUTSIDE RECORDS SUMMARY | 2024-11-15 15:26 | XMS_ITS | Encounter Summary ---
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
== END 2024-11-15 13:03 | disposition home or self-care (01) ==
LOC: HO.HCS 12:36
PROVIDERS: PCP Pediatrics; Visit Provider Internal Medicine Cardiovascular Disease
DX: I48.0 Paroxysmal atrial fibrillation (principal); I10 Essential (primary) hypertension
CPT/HCPCS: 93010; 99214; G2211

== ENCOUNTER → 2024-11-15 12:35 | Outpatient (BNVA) | payer MEDICARE, SELFPAY | PROVIDERS: PCP Pediatrics; Visit Provider Internal Medicine Cardiovascular Disease | DX: I48.0 Paroxysmal atrial fibrillation (principal); I10 Essential (primary) hypertension; F10.10 Alcohol abuse, uncomplicated; Z87.891 Personal history of nicotine dependence | CPT/HCPCS: 93005; 99212 ==

== ENCOUNTER 2025-01-19 10:06 | Outpatient (REF) | payer MEDICARE, SELFPAY ==
[2025-01-19 15:06] LABS: MANUAL DIFF FLAG NO
[2025-01-19 15:10] LABS: Hematocrit 42.1 % (42.0-52.0); Hemoglobin 14.3 g/dl (14.0-18.0); Imm Gran Abs Auto 0.07 X10*3/uL (0.00-0.03); Imm Gran Pct Auto 1.6 % (0.0-0.4); Lymphocytes Absolute Auto 0.9 X10*3/uL (1.2-4.9); Mean Corpuscular HGB Conc 34.0 g/dl (31.0-36.0); Mean Corpuscular Hemoglobin 31.5 pg (27.0-33.0); Mean Corpuscular Volume 92.7 fL (80.0-98.0); NRBC Abs Auto 0.000 X10*3/uL (0.0-0.012); NRBC Pct Auto 0.0 /100WBC (0.0-0.2); Platelet Count 223 X10*3/uL (160-400); Red Blood Count 4.54 X10*6/uL (4.60-5.80); White Blood Count 4.5 X10*3/uL (4.8-10.8)
[2025-01-19 15:47] LABS: Alanine Aminotransferase 70 U/L (0-40); Albumin Level 4.5 g/dL (3.5-5.0); Alkaline Phosphatase 67 U/L (39-117); Anion Gap 13 (12-20); Aspartate Amino Transferase 57 U/L (5-37); Blood Urea Nitrogen 28 mg/dL (9-16); Calcium 9.7 mg/dL (8.4-10.2); Carbon Dioxide 25 mmol/L (22-29); Chloride 107 mmol/L (96-108); Cholesterol 222 mg/dL (<200); Estimated Glomerular Filt Rate > 60; HDL Cholesterol 57 mg/dL (>40); Potassium 4.5 mmol/L (3.3-5.1); Sodium 140 mmol/L (135-145); Total Protein 6.9 g/dL (6.5-8.0); Triglycerides 129 mg/dL (<150); Uric Acid 5.9 mg/dL (3.4-7.0)
[2025-01-19 15:59] LABS: Folate 3.7 ng/mL (> or = 4.0); Vitamin B12 605 pg/mL (200-900)
[2025-01-19 16:21] LABS: Lipase 574 U/L (8-78)
[2025-01-19 16:44] LABS: Free T4 (Free Thyroxine) 0.61 ng/dL (0.71-1.85)
== END 2025-01-19 10:07 | disposition home or self-care (01) ==
LOC: HO.CHCLDS 10:06
PROVIDERS: Visit Provider Pediatrics
DX: I48.0 Paroxysmal atrial fibrillation (principal); M1A.9XX0 Chronic gout, unspecified, without tophus (tophi); E03.8 Other specified hypothyroidism; F10.10 Alcohol abuse, uncomplicated; F41.1 Generalized anxiety disorder; Z93.0 Tracheostomy status
CPT/HCPCS: 36415; 80048; 80061; 80076; 82607; 82746; 83690; 84439; 84443; 84480; 84550; 85025